=== PATIENT | female | born 1960 | race Caucasian/White ===

== ENCOUNTER 2020-04-18 03:26 | Outpatient (CLI) | payer OTHER, MEDICAID, SELFPAY ==
[2020-04-18 12:11] LABS: Anion Gap 11.4 mmol/L (3-11); BUN 23 mg/dL (7-18); CO2 26.6 mmol/L (21.0-32.0); CREATININE 0.9 mg/dL (0.55-1.02); Calcium 9.7 mg/dL (8.5-10.1); Calculated LDL 105 mg/dL (<100); Chloride 106 mmol/L (98-107); Cholesterol 181 mg/dL (<200); Glucose 109 mg/dL (74-106); HDL Cholesterol 55 mg/dL (40-60); Potassium 4.4 mmol/L (3.5-5.1); Sodium 144 mmol/L (136-145); Triglyceride 108 mg/dL (<150)
== END 2020-04-18 03:27 | disposition home or self-care (01) ==
LOC: LBO 03:26
PROVIDERS: PCP Nurse Practitioner Adult Health; Visit Provider Family Medicine
DX: E11.9 Type 2 diabetes mellitus without complications (principal)
CPT/HCPCS: 36415; 80048; 80061

== ENCOUNTER 2020-04-26 16:02 | Emergency (ER) | payer OTHER, MEDICAID, SELFPAY ==
[2020-04-26 16:06] VITALS: BP 155/86; PULSE 85; RESP 18; TEMP 36.8; O2SAT 96
--- NOTE | 2020-04-26 16:15 | DI.CT_ITS ---
EXAM: CT ABDOMEN PELVIS W CLINICAL HISTORY: RLQ pain, guarding, episode of vaginal bleeding 2 TECHNIQUE: Imaging Protocol: Axial computed tomography images with coronal and sagittal reformatted images were created and reviewed CONTRAST MATERIAL: Intravenous: Omnipaque 350 Contrast volume:100 mL Oral: No COMPARISON: No exams were available for comparison FINDINGS: ABDOMEN: Lung Bases: There are few subpleural nodules less than 5 mm in size. Liver: Normal density. No measurable mass. Portal, Superior Mesenteric, and Splenic Veins: Unremarkable. Gallbladder and Biliary Tract: No radiodense calculus or dilation. Pancreas: Normal density, no abnormal calcifications or inflammatory process. Spleen: Normal. Adrenals: No masses seen. Kidneys: Normal size, contour and axis. No radiodense stones or obstructive uropathy. No masses seen. Abdominal Aorta: Abdominal portion non-dilated. Mild atherosclerosis. Bowel: No obstruction or bowel wall thickening. Appendix is unremarkable. Peritoneal Cavity: No ascites, collection or mesenteric inflammatory response. No free air. Lymph Nodes: Within normal limits. Bones: Within normal limits for the patient's age. Prior lumbar spine surgery. Soft Tissues: Unremarkable. PELVIS: Bladder: Symmetric distention, no gross wall thickening. Reproductive Organs: Unremarkable as visualized. Lymph Nodes: Within normal limits. Bones: Within normal limits for the patient's age. IMPRESSION: 1. No acute abdominal pelvic process. 2. Tiny subpleural nodules in the lungs. For low risk patient, no routine follow-up is recommended. F or high risk patients, (history of smoking or other known risk fractures) optional CT scan of the ada st at 12 months should be considered. RADIATION DOSE DELIVERED: 935.64mGy.cm Total DLP DATA REPOSITORY: All CT scans at this facility are submitted to the National Radiology Data Registry (NRDR) Dose Index Registry (DIR) with the [employer] (ACR). RADIATION OPTIMIZATION: All CT scans at this facility use at least one of these dose optimization te chniques: automated exposure control; mA and/or kV adjustment per patient size (includes targeted exa ms where dose is matched to clinical indication); or iterative reconstruction.
[2020-04-26 16:37] LABS: Abs Immature Grans 0.06 10^3/uL (0.0-0.06); Absolute Basophil Count 0.07 10^3/uL (0.0-0.2); Absolute Eosinophil Count 0.21 10^3/uL (0.0-0.7); Absolute Lymphocyte Count 4.06 10^3/uL (1.2-3.4); Absolute Monocyte Count 0.62 10^3/uL (0.1-0.8); Absolute Neutrophil Count 5.22 10^3/uL (1.2-6.7); Basophils % 0.7; Eosinophils % 2.1; HCT 37.8 % (36.0-46.0); HGB 12.1 g/dL (11.2-15.7); Immature Grans % 0.6; Lymphocytes % 39.6; MCV 84.4 fL (80-95); MPV 9.6 fL (8.0-11.0); Monocytes % 6.1; Neutrophils % 50.9; Nucleated RBC 0 %; Platelet Count 310 10^3/uL (130-400); RBC 4.48 10^6/uL (3.93-5.22); RDW 14.7 % (11.7-14.6); RDW-SD 45.1 fL; WBC 10.24 10^3/uL (4.4-10.8)
--- NOTE | 2020-04-26 16:42 | ED.GENADUL_ITS ---
Discharge Plan Disposition Patient Disposition: HOME Condition: Good Discharge Details Clinical Impression: Abdominal pain Primary Care Provider: Kiki Oneil ED Provider: Kenzie Bustos Home Meds and New Rx's Prescriptions: Continued simvastatin 20 mg tablet 20 mg PO DAILY RF: 0 metformin 500 mg tablet 500 mg PO DAILY RF: 0 hydrocodone-acetaminophen 10-325 mg tablet 1 tab PO Q4H PRNRF: 0 No Action aspirin 325 mg tablet 325 mg PO DAILY RF: 0 topiramate 25 mg tablet 25 mg PO BID RF: 0 omeprazole 40 mg capsule,delayed release(DR/EC) 40 mg PO DAILY RF: 0 amitriptyline 50 mg tablet 50 mg PO QHS RF: 0 Discharge Instructions Instructions: Abdominal Pain (ED) Additional Instructions: Please follow-up with your primary care physician on Wednesday Follow-up for the pelvic ultrasound I have ordered to evaluate your right ovary You may take 650 mg of Tylenol every 4 hours in addition to your hydrocodone, ta ke 325 mg of Tylenol every 4 hours for the next several days Return earlier if fever, chills, worsening or persistent pain, nausea, vomiting Blood pressure recheck by primary care physician You have several pulmonary nodules on your CAT scan, please follow-up with your doctor regarding these findings Discharge Data Discharge Date/Time-TO BE ENTERED AT DEPARTURE: 04/26/20 19:45 Medical Decision Making <BOOM Willis - Last Filed: 04/26/20 19:00> Patient is alert and oriented the, lower abdominal pain only, no chest pain, no shortness of breath, vitals stable aside from mild hypertension CT does not show acute pathology, patient does have mention of pulmonary nodules which she will follow up with . I did order ultrasound of her ovaries to exclude additional pathology Urinalysis was reviewed from [facility] with does not show pathology She been calm and comfortable throughout her evaluation She will need close outpatient follow-up with her primary care doctor No evidence of obvious mass or diverticulitis on CAT scan per radiology interpretation Return precautions discussed and patient says understanding, diagnostic labs reviewed in detail strict pathology Differential Diagnosis Differential Diagnosis: Appendicitis, ovarian torsion, ovarian mass, diverticulitis Medical Records Medical records reviewed: Yes I reviewed the patient's medical records. Lab Data Lab results reviewed: Yes I reviewed the patient's lab results. <Homar Marvin MD - Last Filed: 05/17/20 22:58> Patient seen, examined, and discussed with BOOM Bustos. I agree with treatment plan as discussed/documented. HPI <BOOM Willis - Last Filed: 04/26/20 19:00> This 60-year-old female with history of fibromyalgia, hyperlipidemia, diabetes, knee pain, sad-wllpagd-vfmrlzbiu diabetes presents with right lower quadrant pain for the past 8 weeks. She denies any fever or chills. She denies any chest pain or shortness of breath. She denies any diarrhea. She denies any nausea or vomiting. She denies history of similar pain in the past. She denies known exacerbating or alleviating factors. She states her pain is exacerbated with palpation predominantly. She was having intercourse approximately a week and half ago and was unusual because she is status post hysterectomy years ago. She was seen at urgent care just prior to arrival here and had a urine specimen. She was found to the imaging. Does report her ovaries were preserved. She denies any additional complaints at this time. General Date/Time Provider Initiated Documentation: 04/26/20 16:05 . Related Data Home Medications Medication Instructions Recorded Confirmed hydrocodone 10 mg-acetaminophen 1 tab PO Q4H PRN 04/26/20 04/26/20 325 mg tablet metformin 500 mg tablet 500 mg PO DAILY 04/26/20 04/26/20 simvastatin 20 mg tablet 20 mg PO DAILY 04/26/20 04/26/20 amitriptyline 50 mg tablet 50 mg PO QHS 05/01/20 05/01/20 aspirin 325 mg tablet 325 mg PO DAILY 05/01/20 05/01/20 omeprazole 40 mg capsule,delayed 40 mg PO DAILY cap 05/01/20 05/01/20 release topiramate 25 mg tablet 25 mg PO BID 05/01/20 05/01/20 Allergies Allergy/AdvReac Type Severity Reaction Status Date / Time Opioids - Morphine Analogues AdvReac Intermediate nausea Verified 05/01/20 15:08 General Stated Complaint: Abd Prob KATHRINE: 3 <Homar Marvin MD - Last Filed: 05/17/20 22:58> This 60-year-old female with history of fibromyalgia, hyperlipidemia, diabetes, knee pain, oee-njkgnbx-txumfjzdp diabetes presents with right lower quadrant pain for the past 8 weeks. She denies any fever or chills. She denies any chest pain or shortness of breath. She denies any diarrhea. She denies any nausea or vomiting. She denies history of similar pain in the past. She denies known exacerbating or alleviating factors. She states her pain is exacerbated with palpation predominantly. She was having intercourse approximately a week and half ago and was unusual because she is status post hysterectomy years ago. She was seen at urgent care just prior to arrival here and had a urine specimen. She was found to the imaging. Does report her ovaries were preserved. She denies any additional complaints at this time. Review of Systems <BOOM Willis - Last Filed: 04/26/20 19:00> Narrative: Review of systems negative x7 aside from where indicated in HPI, no vomiting, diarrhea, urinary symptoms, persistent vaginal discharge PFSH <BOOM Willis - Last Filed: 04/26/20 19:00> Medical History (Updated 05/17/20 @ 08:24 by Halle Abreu) Body mass index (BMI) of 30.0 to 30.9 in adult Cannabis dependence, daily use Chronic pain Spine & RSD RUE; long-term hydrocodone-apap since 2016; s/p multiple lumbar spine surgeries; +DIsability Degeneration of intervertebral disc of lumbosacral region Depressive disorder Diabetes mellitus type 2, controlled Dx'ed ~2019; Metformin Fibromyalgia GERD (gastroesophageal reflux disease) Omeprazole; EGD many years ago; never used H2 krystina History of nicotine use 30 pack years; quit 2001 History of TIAs Hyperlipidemia PVD s/p endarderectomy; on statin Knee pain s/p meniscal surgery ([place]) Leg pain Low blood pressure Lumbar spinal stenosis Migraine RX Topamax; breakthrough is rest & dark room (couple times per year) Prolapsed cervical intervertebral disc Pulmonary nodules CT 04/2020: Tiny subpleural nodules in the lungs. For low risk patient, no routine follow-up is recommended. For high risk patients, (history of smoking or other known risk fractures) optional CT scan of the chest at 12 months should be considered. Reflex sympathetic dystrophy of the arm RSD RUE--on disability Right lower quadrant abdominal pain Surgical History (Updated 05/07/20 @ 13:15 by Kiki Oneil NP) H/O lumbosacral spine surgery x2 History of hysterectomy for menorrhagia History of right cataract surgery History of right-sided carotid endarterectomy s/p x2 TIAs Hx of elbow surgery chronic tennis elbow Hx of right knee surgery meniscal repair S/P carpal tunnel release R Family History (Updated 05/07/20 @ 13:18 by Kiki Oneil NP) Father , 76yo lung cancer Cancer Lung Heart disease Hypertension Sister , 44yo lung cancer Cancer all organs Mother , 84yo dementia Dementia Social History Smoking/Tobacco Use Status: Former Tobacco Use Quit Date: 02/22/01 Tobacco: How many years used: 30 Smoking risk assessment performed?: Yes Alcohol Intake: never Substance use type: does not use Adopted: No Caregiver/Support person: No Foster care: No Do you need help understanding health information?: Never Sexually active: Yes Do you think of yourself as: straight/heterosexual Current gender identity: female What is your relationship status?: Panel score (0-1 are the most socially isolated patients): 0 Do you feel safe at home: Yes Do you feel safe in your relationship?: Yes Exam <BOOM Willis - Last Filed: 04/26/20 19:00> Const General: cooperative and comfortable Chest Chest: normal inspection of the chest Resp Effort & Inspection: normal respiratory effort Auscultation: clear to auscultation bilaterally Cardio Rate: regular rate Rhythm: regular rhythm GI Inspection: normal to inspection Palpation: nontender Back/Spine/Pelvis Back: No CVA tenderness Neuro General: patient alert and patient oriented x3 Course <BOOM Willis Last Filed: 04/26/20 19:00> Vital Signs Vital signs: Vital Signs Temperature 36.8 C 04/26/20 16:06 Pulse 85 04/26/20 16:06 Respiratory Rate 18 04/26/20 16:06 Blood Pressure 155/86 H 04/26/20 16:06 Pulse Oximetry 96 04/26/20 16:06 Temperature 36.8 C 04/26/20 16:06 Temperature Source Skin 04/26/20 16:06 Pulse 85 04/26/20 16:06 Respiratory Rate 18 04/26/20 16:06 Respiratory Effort Non-Labored 04/26/20 16:08 Blood Pressure 155/86 H 04/26/20 16:06 Blood Pressure Position Sitting 04/26/20 16:06 Pulse Oximetry 96 04/26/20 16:06 Oxygen Delivery Method Room Air 04/26/20 16:06 Oxygen Flow Rate 0 04/26/20 16:06 Pain Level 6 04/26/20 16:31 Lab/Test Results Lab/Test Results: Laboratory Tests Range/Units 04/26/20 16:05 WBC (4.4-10.8) 10^3/uL 10.24 RBC (3.93-5.22) 10^6/uL 4.48 Hgb (11.2-15.7) g/dL 12.1 Hct (36.0-46.0) % 37.8 MCV (80-95) fL 84.4 MCH (27.0-33.0) pg 27.0 MCHC (32.0-36.0) % 32.0 RDW (11.7-14.6) % 14.7 H Plt Count (130-400) 10^3/uL 310 MPV (8.0-11.0) fL 9.6 Immature Gran % 0.6 Neutrophils % 50.9 Lymphocytes % 39.6 Monocytes % 6.1 Eosinophils % 2.1 Basophils % 0.7 Nucleated RBC % % 0 Absolute Neutrophils (1.2-6.7) 10^3/uL 5.22 Absolute Lymphocytes (1.2-3.4) 10^3/uL 4.06 H Absolute Monocytes (0.1-0.8) 10^3/uL 0.62 Absolute Eosinophils (0.0-0.7) 10^3/uL 0.21 Absolute Basophils (0.0-0.2) 10^3/uL 0.07
[2020-04-26] MEDS: Normal Saline Flush 10 ML SYR IVP (16:43)
[2020-04-26] MEDS: fentaNYL 100 MCG/2 ML VIAL 50 MCG IVP (16:43)
[2020-04-26 16:45] LABS: ALT 51 U/L (14-59); AST 18 U/L (15-37); Alkaline Phosphatase 114 U/L (46-116); Anion Gap 10.5 mmol/L (3-11); BUN 13 mg/dL (7-18); Bilirubin, Total 0.3 mg/dL (0.2-1.0); CO2 24.5 mmol/L (21.0-32.0); CREATININE 0.9 mg/dL (0.55-1.02); Calcium 9.4 mg/dL (8.5-10.1); Chloride 107 mmol/L (98-107); Glucose 112 mg/dL (74-106); Lipase 71 U/L (73-393); Potassium 3.5 mmol/L (3.5-5.1); Sodium 142 mmol/L (136-145); Total Protein 7.7 g/dL (6.4-8.2)
[2020-04-26] MEDS: Omnipaque 350 MG/ML 50 ML BTL IJ ×2 (17:49→17:50)
[2020-04-26] MEDS: Normal Saline - Diluent 50 ML VIAL IV (17:49)
--- NOTE | 2020-04-26 18:23 | DI.VRAD_ITS ---
PROCEDURE INFORMATION: Exam: CT Abdomen And Pelvis With Contrast Exam date and time: 04/26/2020 4:19 PM Age: 60 years old Clinical indication: Abdominal pain; Localized; Right lower quadrant (rlq); Prior surgery; Patient HX: Rlq pain, guarding, episode of vaginal bleeding 2; Additional info: Weeks ago, S/P hyst TECHNIQUE: Imaging protocol: Computed tomography of the abdomen and pelvis with contrast. Total images: 1222 COMPARISON: No relevant prior studies available. FINDINGS: Lungs: Lung bases are unremarkable. Pleural spaces: There are few subpleural nodules in the visualized lower lungs measuring no greater than 3 mm in size. No basilar pleural effusion or pneumothorax. Liver: Homogeneously enhances without mass. Gallbladder and bile ducts: No calcified stones, wall thickening or biliary dilatation. Pancreas: No mass or peripancreatic edema. Spleen: Homogeneously enhances. No splenomegaly. Adrenal glands: No adrenal nodule. Kidneys and ureters: There are bilateral extrarenal pelves. There is no stone in either ureter. Kidneys homogeneously enhance. No perinephric stranding. Stomach and bowel: Stomach is grossly unremarkable. No small or large bowel dilatation. No definite bowel wall thickening. Appendix: No evidence of appendicitis. Intraperitoneal space: There is a clip anteriorly within the right mid abdomen. No pelvic mass. No free fluid in the pelvis. Vasculature: There is atherosclerotic change without aortic aneurysm. Multiple phleboliths within the pelvis. Lymph nodes: No significant adenopathy. Urinary bladder: No definite bladder wall thickening. Reproductive: Status post hysterectomy. Bones/joints: There have been a prior laminectomies and posterior fusions with disc spacers from the L3 to S1 levels. Soft tissues: Extra-abdominal soft tissues are unremarkable. IMPRESSION: 1. No acute findings. No evidence of appendicitis. 2. Tiny basilar lung nodules. For patients at low risk (minimal or absent history of smoking and of other known risk factors), no routine follow-up is indicated. For patients at high risk (history of smoking or of other known risk factors), consider optional CT Chest at 12 months. (Reference: Selvin) REFERENCES: Selvin Sutton et al. Guidelines for Management of Incidental Pulmonary Nodules Detected on CT Images: From the Fleischner Society 2017. Radiology. 2017;284(1):228-243. Dictated and Authenticated by: Kenrick Vergara MD. Ordering:FRANKY Espino MD
[2020-04-26 20:00] LABS: Abs Immature Grans 0.03 10^3/uL (0.0-0.06); Absolute Basophil Count 0.07 10^3/uL (0.0-0.2); Absolute Eosinophil Count 0.16 10^3/uL (0.0-0.7); Absolute Lymphocyte Count 3.54 10^3/uL (1.2-3.4); Absolute Monocyte Count 0.52 10^3/uL (0.1-0.8); Basophils % 0.8; Eosinophils % 1.8; HCT 37.3 % (36.0-46.0); HGB 11.6 g/dL (11.2-15.7); Immature Grans % 0.3; Lymphocytes % 39.7; MCH 26.4 pg (27.0-33.0); MCHC 31.1 % (32.0-36.0); MCV 84.8 fL (80-95); MPV 10.1 fL (8.0-11.0); Monocytes % 5.8; Neutrophils % 51.6; Nucleated RBC 0 %; Platelet Count 317 10^3/uL (130-400); RDW 14.6 % (11.7-14.6); RDW-SD 45.4 fL; WBC 8.92 10^3/uL (4.4-10.8)
== END 2020-04-26 19:45 | disposition home or self-care (01) ==
PROVIDERS: Nurse Practitioner Family; Emergency Provider Physician Assistant; PCP Nurse Practitioner Adult Health
DX: R10.31 Right lower quadrant pain (principal)
CPT/HCPCS: 36415; 80053; 83690; 96374; 99285; 74177; 85025; 99284; J3010; Q9967

== ENCOUNTER 2020-11-07 14:35 | Outpatient (CLI) | payer OTHER, MEDICAID, SELFPAY ==
--- NOTE | 2020-11-07 14:30 | RT.EKG_ITS ---
APPROVED REPORT Exam: Resting ECG Reason for Exam: Chest discomfort Patient Location: O HR:91 bpm ECG Measurements Heart Rate 91 AXIS SC 144 P 58 QRSd 92 QRS 66 QT 360 T -47 QTc 444 Conclusion Sinus rhythm...normal P axis, V-rate 60- 99 Ventricular bigeminy...bigeminy string>4 w/ V complexes Probable left atrial enlargement...P >50mS, <-0.10mV V1
== END 2020-11-07 14:36 | disposition home or self-care (01) ==
LOC: DI.CM 14:35
PROVIDERS: PCP Nurse Practitioner Family; Visit Provider Physician Assistant
DX: R07.89 Other chest pain (principal)
CPT/HCPCS: 93010

== ENCOUNTER 2020-11-07 15:23 | Emergency (ER) | payer OTHER, MEDICAID, SELFPAY ==
[2020-11-07] VITALS (42 sets, daily range): BP systolic 130–163; BP diastolic 67–93; PULSE 65–100; RESP 12–23; TEMP 36.5; O2SAT 90–99
--- NOTE | 2020-11-07 15:15 | RT.EKG_ITS ---
APPROVED REPORT Exam: Resting ECG Reason for Exam: chest pain Patient Location: E HR:91 bpm ECG Measurements Heart Rate 91 AXIS SC 136 P 54 QRSd 89 QRS 73 QT 368 T -16 QTc 454 Conclusion Sinus rhythm...normal P axis, V-rate 60- 99 Multiple ventricular premature complexes...V complexes w/ short R-R intervls Borderline T abnormalities, diffuse leads...T flat/neg
[2020-11-07 15:43] LABS: Abs Immature Grans 0.06 10^3/uL (0.0-0.06); Absolute Basophil Count 0.08 10^3/uL (0.0-0.2); Absolute Eosinophil Count 0.25 10^3/uL (0.0-0.7); Absolute Lymphocyte Count 3.76 10^3/uL (1.2-3.4); Absolute Monocyte Count 0.67 10^3/uL (0.1-0.8); Absolute Neutrophil Count 5.36 10^3/uL (1.2-6.7); Basophils % 0.8; Eosinophils % 2.5; HCT 38.2 % (36.0-46.0); HGB 12.2 g/dL (11.2-15.7); Immature Grans % 0.6; Lymphocytes % 36.9; MCH 26.9 pg (27.0-33.0); MCHC 31.9 % (32.0-36.0); MCV 84.3 fL (80-95); Monocytes % 6.6; Neutrophils % 52.6; Nucleated RBC 0 %; Platelet Count 281 10^3/uL (130-400); RBC 4.53 10^6/uL (3.93-5.22); RDW 14.9 % (11.7-14.6); RDW-SD 45.7 fL; WBC 10.18 10^3/uL (4.4-10.8)
--- NOTE | 2020-11-07 15:45 | DI.CT_ITS ---
Exam(s) CT THORAX CTA EXAM: CT THORAX CTA CLINICAL HISTORY: chest pain radiating to the back. TECHNIQUE: Imaging Protocol: Axial CT angiography was performed with multi-slice acquisition and mu lti-planar and/or 3D reconstructions. CONTRAST MATERIAL: Intravenous: Omnipaque 350 Contrast volume:100 mL COMPARISON: CT CT ABDOMEN PELVIS W from 04/26/2020 FINDINGS: Pulmonary Arteries: No evidence of filling defect to suggest pulmonary emboli. There is prominence of the main pulmonary trunk which may reflect pulmonary hypertension. Tracheobronchial tree: Patent where visualized. Mediastinum and Nuvia: No dominant adenopathy or fluid collection. Pulmonary parenchyma: No consolidation or dominant measurable mass. Pulmonary emphysema and bronchiec tasis is noted. There is a 4 mm nodule in the right upper lobe. There is a 4 mm nodule in the later al aspect of the left lower lobe. These are stable. Pleura: No effusion or pneumothorax. Heart: The heart is not dilated. No coronary artery calcifications are seen. No pericardial effusion. Aorta: Thoracic aorta non-dilated. Atherosclerosis. No evidence of dissection. Upper abdomen: Unremarkable. Bones: Within normal limits. Soft tissues: Unremarkable. Thyroid gland: Unremarkable. IMPRESSION: 1. No evidence of pulmonary embolism, thoracic aortic dissection or aneurysm. 2. Stable pulmonary nodules. For patients at low risk, no routine follow-up is recommended. For pat ients at high risk (history of smoking or other known risk factors), consider optional CT scan of the chest at 12 months. (Reference: Selvin) RADIATION DOSE DELIVERED: 563.33mGy.cm Total DLP DATA REPOSITORY: All CT scans at this facility are submitted to the National Radiology Data Registry (NRDR) Dose Index Registry (DIR) with the [employer] (ACR). RADIATION OPTIMIZATION: All CT scans at this facility use at least one of these dose optimization te chniques: automated exposure control; mA and/or kV adjustment per patient size (includes targeted exa ms where dose is matched to clinical indication); or iterative reconstruction.
--- NOTE | 2020-11-07 15:45 | W.ED.GENAD ---
Discharge Plan Disposition Patient Disposition: HOME Condition: Stable Discharge Details Clinical Impression: Chest pain Primary Care Provider: Maximus Leiva ED Provider: Eduardo Sims Home Meds and New Rx's Prescriptions: Continued simvastatin 20 mg tablet 20 mg PO DAILY RF: 0 Hold Instructions: Home Medication placed on hold at Doctor's office metformin 500 mg tablet 500 mg PO DAILY RF: 0 aspirin 325 mg tablet 325 mg PO DAILY RF: 0 omeprazole 40 mg capsule,delayed release(DR/EC) 40 mg PO DAILY RF: 0 amitriptyline 50 mg tablet 50 mg PO QHS Qty: 90 RF: 4 Discharge Instructions Instructions: Chest Pain (ED) Additional Instructions: your blood work and cat scan do not show any emergent findings at this time follow up with your primary care provider within a week. They should also know that you have pulmonary nodules on your cat scan and will need follow up outpatient imaging if you feel more ill, have worsening pain or difficulty breathing return to the emergency department Medical Decision Making 60 yo female who has a hx of hld, migraine, gerd, fibromyalgia, former smoker, who comes in with chief complaint of chest pain. She states it started yesterday when she was taking out her trash and felt a sharp pain in the chest. She has had continued anterior chest pain since that radiates to the back and also states it hurts to take a deep breath in. Denies fevers, cough, n/v, abdomen pain. States moving her arms hurts the pain. She is in no distress on exam speaking clearly. She has clear lungs, no rashes of the chest wall, soft nontender abdomen, has pain with palpation to the chest wall on exam. Will obtain troponin to evaluate for nstemi, heart score is 3. No hypoxia, tachycardia or evidence of dvt on exam so doubt pe. Given her pain radiates to the back will obtain CTA to evaluate for dissection labs unremarkable and cta shows no acute significant findings, has pulmonary nodules that I informed her of and that she needs to inform her pcp of when she follows up with them. she is stable and no pain now, will obtain delta troponin pt now resting in bed asymptomatic, delta troponin negative. Given heart score of 3 feel she is stable for d/c and advised to f/u with pcp, return precautions given Differential Diagnosis Differential Diagnosis: dissection, nstemi, chest wall pain Imaging Data Radiologic Study: Attestation: I personally reviewed and interpreted this imaging study as follows: Imaging: CT Scan Radiologist's impression: IMPRESSION: 1. No pulmonary embolism identified. 2. Mildly dilated pulmonary trunk could be due to pulmonary hypertension. 3. Changes of emphysema 4. 3 bilateral indeterminate pulmonary nodules, largest measuring 5 mm. For patients at low risk (minimal or absent history of smoking and of other known risk factors), no routine follow-up is indicated. For patients at high risk (history of smoking or of other known risk factors), consider optional CT Chest at 12 months. (Reference: Selvin) Lab Data Lab results reviewed: Yes I reviewed the patient's lab results. ECG Data Attestation: I personally reviewed and interpreted this ECG (s) as follows: Prior ECG tracings: available for review Interpretation: sinus rhythm, rate of 91, no acute st t wave ischemic findings HPI General Mode of arrival: ambulatory. Date/Time Provider Initiated Documentation: 11/07/20 15:24. Limitations to Documentation: no limitations. Information obtained by: patient. History of Present Illness 60 year old F presents to the emergency department with the chief complaint of chest pain, described as moderate, with intensity rated at 5. Quality is described as aching, and is localized to the chest. Patient reports radiation to back. Patient started experiencing this day(s) (1) and it has been constant. No relieving factors improve symptom(s), No exacerbating factors reported . Patient notes denies fever/chills. Patient did receive the following treatments prior to arrival, none Related Data Home Medications Medication Instructions Recorded Confirmed metformin 500 mg tablet 500 mg PO DAILY 04/26/20 11/07/20 simvastatin 20 mg tablet 20 mg PO DAILY 04/26/20 11/07/20 aspirin 325 mg tablet 325 mg PO DAILY 05/01/20 11/07/20 omeprazole 40 mg capsule,delayed 40 mg PO DAILY cap 05/01/20 11/07/20 release amitriptyline 50 mg tablet 50 mg PO QHS #90 tab 11/04/20 11/07/20 Previous Rx's Medication Instructions Recorded amitriptyline 50 mg tablet 50 mg PO QHS #90 tab 11/04/20 Allergies Allergy/AdvReac Type Severity Reaction Status Date / Time oxycodone [From Xtampza ER] Allergy Unknown Nausea Verified 11/07/20 15:33 Opioids - Morphine Analogues AdvReac Intermediate nausea Verified 11/07/20 15:33 General Stated Complaint: Chest Pain KATHRINE: 2 Review of Systems All systems reviewed & are unremarkable except as noted in HPI and below Constitutional Constitutional: Denies chills, Denies fever(s) and Denies weakness Cardiovascular Cardiovascular: Denies dyspnea Respiratory Respiratory: Denies cough and Denies dyspnea Gastrointestinal Gastrointestinal: Denies abdominal pain, Denies nausea and Denies vomiting Musculoskeletal Musculoskeletal: Denies joint swelling Neurologic Neurologic: Denies weakness [facility] Medical History (Updated 11/07/20 @ 18:14 by Eduardo Sims MD) Body mass index (BMI) of 30.0 to 30.9 in adult Cannabis dependence daily use Chronic pain Spine & RSD RUE; long-term hydrocodone-apap since 2015; s/p multiple lumbar spine surgeries; +DIsability Degeneration of intervertebral disc of lumbosacral region Depressive disorder Diabetes mellitus type 2, controlled Dx'ed ~2018; Metformin Facet syndrome, lumbar Fibromyalgia GERD (gastroesophageal reflux disease) Omeprazole; EGD many years ago; never used H2 krystina History of nicotine use 30 pack years; quit 2001 History of TIAs Hyperlipidemia PVD s/p endarderectomy; on statin Knee pain s/p meniscal surgery ([place]) Leg pain Low blood pressure Lumbar radiculopathy Lumbar spinal stenosis (~05/27/18) Migraine RX Topamax; breakthrough is rest & dark room (couple times per year) Opioid dependence Clean for 2 months on 09/05/20 Prolapsed cervical intervertebral disc Pulmonary nodules CT 04/2020: Tiny subpleural nodules in the lungs. For low risk patient, no routine follow-up is recommended. For high risk patients, (history of smoking or other known risk fractures) optional CT scan of the chest at 12 months should be considered. Reflex sympathetic dystrophy of the arm RSD RUE--on disability Right lower quadrant abdominal pain Trochanteric bursitis Surgical History (Updated 07/31/20 @ 16:10 by Suha Murphy) H/O discectomy (~2006) H/O laminectomy H/O lumbosacral spine surgery x2 History of hysterectomy (~02/22/95) for menorrhagia History of right cataract surgery History of right-sided carotid endarterectomy (~12/23/16) s/p x2 TIAs Hx of elbow surgery chronic tennis elbow Hx of right knee surgery meniscal repair S/P carpal tunnel release (~02/22/03) R Family History (Updated 07/12/20 @ 11:19 by Allison Miller) Father , 76yo lung cancer Cancer Lung Heart disease Hypertension Sister , 44yo lung cancer Cancer all organs Mother , 84yo dementia Dementia Sister No problems noted. Sister No problems noted. Brother No problems noted. Social History (Updated 07/12/20 @ 11:17 by Allison Miller) Smoking/Tobacco Use Status: Former Tobacco Use tobacco type: cigarettes Quit Date: 02/22/01 Tobacco: How many years used: 30 Second Hand Exposure: Yes Smoking risk assessment performed?: Yes Alcohol Intake: never Drug use: Daily Substance use type: marijuana Adopted: No Caregiver/Support person: No Foster care: No Household members: none Do you need help understanding health information?: Never Pets and animals: Yes Sexually active: Yes Do you think of yourself as: straight/heterosexual Current gender identity: female What is your relationship status?: How often do you talk on the phone with friends or family?: three or more times per week How often do you get together with friends or relatives?: twice per week How often do you attend jewish or restoration services?: decline to answer Do you belong to any clubs or organized social groups?: no Panel score (0-1 are the most socially isolated patients): 1 What type of physical activity do you participate in: walking Duration: 30-45 minutes/day Frequency: 3-4 times per week Paola/Uatsdin: No preference Special paola needs: No Agree to transfusion: No Seatbelt use: always Helmet use: No Drive intox or ride w/intox commercial driver's license driver: No Do you feel safe at home: Yes Do you feel safe in your relationship?: Yes Exam Const General: no acute distress Orientation: alert HENMT Head: normal to inspection Ears: external ears normal General nose exam: external nose normal Mouth: moist mucous membranes Eyes General: appearance normal, both eyes and all related structures Neck Neck: normal visual inspection Resp Effort & Inspection: normal respiratory effort and able to speak in complete sentences Cardio Rate: regular rate GI Palpation: soft, not rigid and nontender Skin General skin exam: no rashes or lesions noted Neuro General: patient alert and patient oriented x3 Extrem General: normal to inspection Psych Mental Status: mental status grossly normal Course Vital Signs Vital signs: Vital Signs Pulse 80 11/07/20 15:27 Respiratory Rate 14 11/07/20 15:27 Blood Pressure 130/73 11/07/20 15:27 Pulse Oximetry 96 11/07/20 15:27 Pulse 80 11/07/20 15:27 Respiratory Rate 14 11/07/20 15:36 Respiratory Effort 11/07/20 15:36 Respiratory Depth Normal 11/07/20 15:36 Respiratory Pattern Normal 11/07/20 15:36 Blood Pressure 130/73 11/07/20 15:27 Pulse Oximetry 96 11/07/20 15:27 Oxygen Delivery Method Room Air 11/07/20 15:27 Oxygen Flow Rate 0 11/07/20 15:27 Pain Level 5 11/07/20 15:36 Lab/Test Results Lab/Test Results: Laboratory Tests Range/Units 11/07/20 15:35 WBC (4.4-10.8) 10^3/uL 10.18 RBC (3.93-5.22) 10^6/uL 4.53 Hgb (11.2-15.7) g/dL 12.2 Hct (36.0-46.0) % 38.2 MCV (80-95) fL 84.3 MCH (27.0-33.0) pg 26.9 L MCHC (32.0-36.0) % 31.9 L RDW (11.7-14.6) % 14.9 H Plt Count (130-400) 10^3/uL 281 MPV (8.0-11.0) fL 10.0 Immature Gran % 0.6 Neutrophils % 52.6 Lymphocytes % 36.9 Monocytes % 6.6 Eosinophils % 2.5 Basophils % 0.8 Nucleated RBC % % 0 Absolute Neutrophils (1.2-6.7) 10^3/uL 5.36 Absolute Lymphocytes (1.2-3.4) 10^3/uL 3.76 H Absolute Monocytes (0.1-0.8) 10^3/uL 0.67 Absolute Eosinophils (0.0-0.7) 10^3/uL 0.25 Absolute Basophils (0.0-0.2) 10^3/uL 0.08
[2020-11-07 15:50] LABS: Magnesium 2.1 mg/dL (1.8-2.4)
[2020-11-07 16:01] LABS: ALT 34 U/L (14-59); AST 17 U/L (15-37); Alkaline Phosphatase 103 U/L (46-116); BUN 13 mg/dL (7-18); Bilirubin, Total 0.3 mg/dL (0.2-1.0); Calcium 9.2 mg/dL (8.5-10.1); Chloride 106 mmol/L (98-107); Estimated GFR 56.56 (mL/min/1.73m2); Glucose 112 mg/dL (74-106); Lipase 79 U/L (73-393); Potassium 3.8 mmol/L (3.5-5.1); Sodium 142 mmol/L (136-145); Total Protein 7.7 g/dL (6.4-8.2)
[2020-11-07 16:03] LABS: Troponin I < 0.05 ng/mL (<0.06)
[2020-11-07] MEDS: Normal Saline Flush 10 ML SYR IVP (16:33)
[2020-11-07] MEDS: Omnipaque 350 MG/ML 100 ML BTL IJ (16:33)
--- NOTE | 2020-11-07 17:11 | DI.VRAD_ITS ---
PROCEDURE INFORMATION: Exam: CTA Chest With Contrast Exam date and time: 11/07/2020 3:52 PM Age: 60 years old Clinical indication: Other: Chest pain radiating to the back TECHNIQUE: Imaging protocol: Computed tomographic angiography of the chest with contrast. 3D rendering (Not supervised by radiologist): MIP and/or 3D reconstructed images were created by the technologist. Contrast material: OMNIPAQUE 350; Contrast volume: 100 ml; Contrast route: INTRAVENOUS (IV); COMPARISON: CT ABDOMEN PELVIS W 04/26/2020 5:42 PM FINDINGS: Pulmonary arteries: Main pulmonary trunk is mildly dilated measuring 3.2 cm in diameter, suspicious for pulmonary hypertension.. No pulmonary emboli. Aorta: Unremarkable. No aortic aneurysm. No aortic dissection. Lungs: Mild changes of emphysema. Mild diffuse bronchiectasis. 4 mm nodule in the right upper lobe anteriorly best seen on axial series 4, image 29. 5 mm subpleural nodule in the left lung base laterally best seen on axial series 4, image 47, unchanged from the CT abdomen and pelvis 04/26/2020. 5 mm subpleural nodule right lung base laterally is also stable, best seen axial series 4, image 42. areas of slight subpleural scarring in both lungs. Pleural spaces: Unremarkable. No pneumothorax. No pleural effusion. Heart: Unremarkable. No cardiomegaly. No pericardial effusion. Lymph nodes: Unremarkable. No enlarged lymph nodes. Bones/joints: The postoperative changes in the visualized lumbar spine with laminectomies and posterior demetri and pedicle screw fixation. Soft tissues: Unremarkable. IMPRESSION: 1. No pulmonary embolism identified. 2. Mildly dilated pulmonary trunk could be due to pulmonary hypertension. 3. Changes of emphysema 4. 3 bilateral indeterminate pulmonary nodules, largest measuring 5 mm. For patients at low risk (minimal or absent history of smoking and of other known risk factors), no routine follow-up is indicated. For patients at high risk (history of smoking or of other known risk factors), consider optional CT Chest at 12 months. (Reference: Selvin) References: Selvin Sutton et al. Guidelines for Management of Incidental Pulmonary Nodules Detected on CT Images: From the Fleischner Society 2017. Radiology. 2017;284(1):228-243. Dictated and Authenticated by: Griselda Elizalde MD. Ordering:DEWAYNE Clark MD
--- NOTE | 2020-11-07 17:55 | NUR.NOTE ---
Pt reports no chest pain at this time, denies needs, resting on stretcher, monitors maintained. Nursing Note:
[2020-11-07 19:03] LABS: Troponin I < 0.05 ng/mL (<0.06)
== END 2020-11-07 19:19 | disposition home or self-care (01) ==
PROVIDERS: Emergency Provider Emergency Medicine; PCP Nurse Practitioner Family
DX: R07.9 Chest pain, unspecified (principal); R07.1 Chest pain on breathing; R91.8 Other nonspecific abnormal finding of lung field
CPT/HCPCS: 36415; 71275; 80053; 83690; 93005; 99285; 83735; 84484; 85025; 93010; 99284; J3490

== ENCOUNTER 2020-11-27 19:40 | Outpatient (REF) | payer OTHER, MEDICAID, SELFPAY ==
[2020-11-29 12:09] LABS: COVID-19 RT-PCR UVMMC Result Negative (Negative)
== END 2020-11-27 19:41 | disposition home or self-care (01) ==
LOC: LBN 19:40
PROVIDERS: PCP Nurse Practitioner Family; Visit Provider Family Medicine
DX: Z20.822 Contact with and (suspected) exposure to COVID-19 (principal)
CPT/HCPCS: U0003

== ENCOUNTER 2020-12-20 01:25 | Outpatient (CLI) | payer OTHER, MEDICAID, SELFPAY ==
[2020-12-20 10:48] LABS: Source Nasal/Nares
[2020-12-20 14:31] LABS: COVID-19 PCR Negative (Negative)
== END 2020-12-20 01:26 | disposition home or self-care (01) ==
LOC: LBO 01:25
PROVIDERS: PCP Nurse Practitioner Family; Visit Provider Ophthalmology
DX: Z20.822 Contact with and (suspected) exposure to COVID-19 (principal); Z01.818 Encounter for other preprocedural examination
CPT/HCPCS: 87635

== ENCOUNTER 2020-12-23 08:48 | Day surgery (SDC) | payer OTHER, MEDICAID, SELFPAY ==
[2020-12-23 09:06] VITALS: BP 137/92; PULSE 89; RESP 18; TEMP 36.5; O2SAT 97
[2020-12-23] MEDS: Tropicam./Phenyleph. (1/2.5%) 5 ML BTL OS ×3 (09:19→09:29)
--- NOTE | 2020-12-23 09:43 | W.ANESPRE ---
General Info Date of Service Date Performed: 12/23/20 Height: 5 ft 5 in Weight: 84.8 kg Body Mass Index (BMI): 31.1 Surgical Procedure: Operation Date: 12/23/20 11:40 Proposed Procedures Side Surgeon p Cataract Extraction with IOL Implant Left Devaughn Graham MD Meds Allergies and Home Medications Allergies Allergy/AdvReac Type Severity Reaction Status Date / Time Opioids - Morphine Analogues AdvReac Intermediate nausea Verified 12/23/20 09:03 oxycodone [From Xtampza ER] AdvReac Unknown Nausea, Verified 12/23/20 09:03 headache Home Medication Medication Instructions Recorded metformin 500 mg tablet 500 mg PO DAILY 04/26/20 aspirin 325 mg tablet 325 mg PO DAILY 05/01/20 omeprazole 40 mg capsule,delayed 40 mg PO DAILY cap 05/01/20 release amitriptyline 50 mg tablet 50 mg PO QHS #90 tab 11/04/20 Current Visit Medications: Current Medications Generic Name Dose Route Start Last Admin Trade Name Freq PRN Reason Stop Dose Admin Acetaminophen 1,000 mg 12/23/20 06:00 Acetaminophen 500 Mg Tab PO Q4H PRN PRN Miscellaneous Medication 0 ml 12/23/20 06:00 Prednisolone 1%, Moxifloxacin 0.5%, Nepafenac 0.1% 5ml Btl OS DIRECTED [facility] Miscellaneous Medication 0 ml 12/23/20 06:00 12/23/20 09:29 Tropicam./Phenyleph. (1/2.5%) 5 Ml Btl OS 1 drp DIRECTED JADE Administration Tetracaine HCl 0 ml 12/23/20 06:00 Tetracaine 0.5% 4 Ml Btl OS DIRECTED [facility] PFSH Active Problems Active Problems: Problem Status Onset Code Tinea pedis B35.3 Muscle cramp R25.2 Chest pain R07.9 Nuclear sclerotic cataract of left eye H25.12 Posterior subcapsular age-related cataract of left eye H25.042 Cannabis dependence F12.20 Opioid dependence F11.20 Facet syndrome, lumbar M47.816 Lumbar radiculopathy M54.16 Trochanteric bursitis M70.60 History of nicotine use Z87.891 History of TIAs Z86.73 Chronic pain G89.29 Pulmonary nodules R91.8 Body mass index (BMI) of 30.0 to 30.9 in adult Z68.30 Migraine G43.909 GERD (gastroesophageal reflux disease) K21.9 Fibromyalgia M79.7 Depressive disorder F32.9 Lumbar spinal stenosis ~05/27/18 M48.061 Degeneration of intervertebral disc of lumbosacral region M51.37 Hyperlipidemia E78.5 Diabetes mellitus type 2, controlled E11.9 Reflex sympathetic dystrophy of the arm G90.519 Medical History Medical History Body mass index (BMI) of 30.0 to 30.9 in adult Cannabis dependence daily use Chronic pain Spine & RSD RUE; long-term hydrocodone-apap since 2015; s/p multiple lumbar spine surgeries; +DIsability Degeneration of intervertebral disc of lumbosacral region Depressive disorder Diabetes mellitus type 2, controlled Dx'ed ~2019; Metformin Facet syndrome, lumbar Fibromyalgia GERD (gastroesophageal reflux disease) Omeprazole; EGD many years ago; never used H2 krystina History of nicotine use 30 pack years; quit 2001 History of TIAs 2017 Hyperlipidemia PVD s/p endarderectomy; on statin Knee pain s/p meniscal surgery ([place]) Leg pain Low blood pressure Lumbar radiculopathy Lumbar spinal stenosis (~05/27/18) Migraine RX Topamax; breakthrough is rest & dark room (couple times per year) Opioid dependence Clean for 2 months on 09/05/20 Prolapsed cervical intervertebral disc Pulmonary nodules CT 04/2020: Tiny subpleural nodules in the lungs. For low risk patient, no routine follow-up is recommended. For high risk patients, (history of smoking or other known risk fractures) optional CT scan of the chest at 12 months should be considered. Reflex sympathetic dystrophy of the arm RSD RUE--on disability Right lower quadrant abdominal pain Trochanteric bursitis Surgical History Surgical History (Updated 12/20/20 @ 10:48 by Jarred Palumbo) H/O discectomy (~2006) H/O laminectomy H/O lumbosacral spine surgery x2 History of hysterectomy (~02/22/95) for menorrhagia History of right cataract surgery History of right-sided carotid endarterectomy (~12/23/16) s/p x2 TIAs F/U with PCP at [facility] Hx of elbow surgery chronic tennis elbow Hx of right knee surgery meniscal repair S/P carpal tunnel release (~02/22/03) R Tobacco Smoking/Tobacco Use Status: Former Tobacco Use Tobacco: How many years used: 30 Passive smoking exposure: Yes Second hand exposure: Yes Alcohol Alcohol Intake: never Substance Use Substance use: Daily Substance use type: marijuana Vital Signs and Lab Results Vital Signs Most Recent Vital Signs in EMR: Most Recent Vital Signs Temp Pulse Resp BP Pulse Ox 36.5 C 89 18 137/92 H 97 12/23/20 09:06 12/23/20 09:06 12/23/20 09:06 12/23/20 09:06 12/23/20 09:06 Point of Care Results Point of Care Results: Finger Stick Blood Glucose 136 12/23/20 09:01 Lab Results Blood Type / Crossmatch: No Data to Display Complete Blood Count: No Data to Display Complete Metabolic Panel: No Data to Display Liver Function Panel: No Data to Display Coagulation Panel: No Data to Display Cardiac Panel: No Data to Display Arterial Blood Gas: No Data to Display Venous Blood Gas: No Data to Display Pancreas Panel: No Data to Display Thyroid Panel: No Data to Display Infectious Disease: Coronavirus (COVID-19)(PCR) Negative (Negative) 12/20/20 08:41 12/20/20 Coronavirus 2019 Source Nasal/Nares 12/20/20 08:41 12/20/20 Blood Cultures: No Data to Display Toxicology Panel: No Data to Display Imaging and Studies Imaging and Studies EKG Summary: Conclusion Sinus rhythm...normal P axis, V-rate 60- 99 Multiple ventricular premature complexes...V complexes w/ short R-R intervls Borderline T abnormalities, diffuse leads...T flat/neg 11/07/20 Anesthesia Assessment and Plan Anesthesia History Personal History: No History of Anesthesia Complications Family History: No Family History of Anesthesia Complications Exercise Tolerance Exercise Tolerance: Other (Walks 3 miles 3 or 4 times per day ) Pertinent Negatives Pertinent Negatives: No Symptoms of GERD (Controlled well), No Major Cardiovascular Symptoms or Complaints and No Major Pulmonary Symptoms or Complaints Cardiac & Pulmonary Exam Cardiac Exam: Normal S1/S2 Heart Sounds Pulmonary Exam: Clear Bilateral Breath Sounds Airway Exam Known Difficult Airway: No Mallampati Class: 3 Mouth Opening: Normal (> 3cm) Thyromental Distance: Greater than 3 cm Neck Range of Motion: Full ROM Neck Circumference: Normal Teeth Condition: Removable Dentures/Plates Upper and Other ASA Classification ASA Score: ASA 2 Emergency Case?: No NPO Status NPO Status: NPO Clears >2 hours, Solids >8 hours Anesthesia Plan Resuscitation Status: Full Code Anesthesia Technique: MAC Anesthesia Airway Planned: Natural Airway Monitors Used: Standard Monitors
[2020-12-23 10:00] VITALS: BMI 31.1
[2020-12-23] MEDS: Tetracaine 0.5% 4 ML BTL OS (10:18)
[2020-12-23] MEDS: Lidocaine 1% Pres-Free 5 ML VIAL (10:19)
[2020-12-23] MEDS: Lidocaine 2% Jelly 6 ML SYR (10:19)
[2020-12-23] MEDS: Duovisc Viscoelastic System EACH 1 EACH (10:20)
[2020-12-23] MEDS: Balanced Salt Soln.-PLUS 500 ML BAG (10:20)
[2020-12-23] MEDS: Povidone-Iodine Ophth 30 ML BTL (10:22)
--- NOTE | 2020-12-23 10:38 | W.PM.DSUDISC ---
Discharge Plan Disposition Patient Disposition: HOME Condition: Good Discharge Details Attending Provider: Devaughn Graham Primary Care Provider: Maximus Leiva Home Meds and New Rx's Prescriptions: No Action metformin 500 mg tablet 500 mg PO DAILY RF: 0 aspirin 325 mg tablet 325 mg PO DAILY RF: 0 omeprazole 40 mg capsule,delayed release(DR/EC) 40 mg PO DAILY RF: 0 amitriptyline 50 mg tablet 50 mg PO QHS Qty: 90 RF: 4 Discharge Instructions Stand Alone Forms: Post-op Topical Cataract, Aiden Valadez (DSU) Discharge Orders Discharge Orders: Discharge Order (Routine); Ordered 12/23/20 Ordered By: Devaughn Graham DS: Diagnosis Discharge Diagnosis (1) Nuclear sclerotic cataract of left eye: Status: Resolved (2) Posterior subcapsular age-related cataract of left eye: Status: Resolved
--- NOTE | 2020-12-23 10:39 | ROE_ITS ---
Date of service: 12/23/20 Time of Service: 10:39 Operative Note Operative Note DATE OF PROCEDURE: 12/23/20 PRE-OP DIAGNOSIS: Nuclear/posterior subcapsular cataract, left eye POST-OP DIAGNOSIS: same PROCEDURE: Cataract extraction using phacoemulsification with intraocular lens implant, left eye SURGEON: Devaughn Graham ANESTHESIA TYPE: Local By Surgeon and MAC Refer to Anesthesia Record PATHOLOGY: none sent COMPLICATIONS: None Patient was transported to: same day Patient's condition: stable Implants: [employer] / [employer] Tecnis [id number] Indications: Progressive decreased vision due to cataract, left eye Procedure Description: CATARACT SURGERY OPERATIVE REPORT PREOPERATIVE DIAGNOSIS: 1. Nuclear/posterior subcapsular cataract, left eye POSTOPERATIVE DIAGNOSIS: Same OPERATION: 1. Cataract extraction using phacoemulsification with posterior chamber intraocular lens implant, left eye. IOL: IOL Electrical Parts Reconditioner/Model: Shir[employer] Shiraz / LEIF Tecnis [id number] IOL Power: + 23.0 diopters IOL Serial Number: [id number] Optic Diameter: 6.0 mm Haptic/Overall Diameter: 13.0 mm PHACO INFO: Erik Horse Collaborativeurion Vision System with OZil and Active Fluidics Cumulative Dispersed Energy (CDE): 3.83 seconds SURGEON: Devaughn Graham MD, BETTYE ANESTHESIA: Monitored A [facility] (MAC), with local sub-tenon's anesthetic infiltration COMPLICATIONS: None SPECIMENS: None INDICATIONS FOR PROCEDURE: The patient is a 60-year-old lady with history of diminished visual acuity in her left eye secondary to the development of nuclear and posterior subcapsular cataract. She has previously undergone cataract surgery in the right eye. The option of cataract surgery in the left eye was offered to the patient and she felt she was symptomatic enough that she wished to proceed. PROCEDURE: The correct surgical eye was identified and marked as the left eye and the pupil was dilated in the preoperative area using mydriatics and cycloplegics. The dilated pupil size was 7.0 mm. Oral sedation was administered in the form of an Imprimis MKO Melt (midazolam 3mg/ketamine 25mg/ondansetron 2mg). The patient was brought to the operating room where cardiopulmonary monitoring was instituted and surgical time-out was performed, confirming the correct operative eye and IOL power. Topical anesthesia was administered and ophthalmic povidone-iodine 5% was instilled into the conjunctival fornices. Lidocaine gel was applied to the cornea and the nichole-ocular area was prepped with Betadine 10% solution and draped in the usual sterile fashion for intraocular surgery, including an aperture drape. A Tegaderm transparent film dressing was cut in half and used to cover the lashes and lid margins. Care was taken to sequester the lashes and lid margins under the Tegaderm dressing. A lid speculum was placed between the lids of the operative eye and the Ashely-Joanie operating microscope was maneuvered into position. Gurpreet scissors were then used to make a conjunctival buttonhole approximately 6mm posterior to the limbus in the inferonasal quadrant. Blunt dissection was carried out to expose bare sclera, and a blunt-tipped sub-tenon?s anesthesia cannula was introduced and passed posteriorly along the globe where non- preserved plain lidocaine was injected into posterior sub-Tenon?s space. A sideport knife was used to make a paracentesis port superiorly/superiortemporally. Intraocular phenylephrine/lidocaine was injected int the anterior chamber.. The anterior chamber was filled with viscoelastic. A 2.4mm keratome knife was used to create a half-thickness groove at the limbus and then to construct a three-plane near-clear corneal tunnel extending 2.0mm into clear cornea at the 3:00 position. A flap was raised on the anterior capsule and capsulorhexis forceps were used to complete a continuous curvilinear capsulorhexis of 5.0 mm. Balanced salt solution was then used to perform cortical cleaving hydrodissection and nuclear hydrodelineation until the lens could be freely rota ty within the capsular bag. The lens nucleus was then disassembled and removed within the capsular bag and iris plane using phacoemulsification. Residual cortical material was removed using the 45-degree angled silicone I/A tip with 0.3mm port. The posterior capsule was carefully polished to remove as much residual lens epithelial cells as safely possible. The capsular bag was then inflated and the anterior chamber deepened with viscoelastic. The lens implant described above was inserted into the capsular bag using the LEIF [place] Injector. A Kuglen hook was used to dial the IOL into position. Residual viscoelastic was then removed first from posterior to the IOL, then from the anterior chamber using the I/A handpiece. The lens implant was noted to center nicely within the capsular bag. The incisions were stromally hydrated, and the anterior chamber was reformed using BSS. Then 0.5cc of moxifloxacin 1.0mg/ml were injected into the capsular bag and anterior chamber. The incis ions were checked with a Weck spear and found to be secure. Several drops of ophthalmic povidone-iodine 5% were then applied to the eye followed by two drops of Imprimis combination prednisolone/moxifloxacin/nepafenac solution. The drapes were removed and a clear plastic protective eye shield was placed over the eye. The patient was then returned to Same Day Surgery in stable condition.
[2020-12-23 10:40] VITALS: BP 132/96; PULSE 91; RESP 18; TEMP 36.4; O2SAT 98
--- NOTE | 2020-12-23 10:56 | W.ANESPOSTOP ---
Postoperative Evaluation Date, Time and Location Date Performed: 12/23/20 Time Performed: 10:40 Patient Location: Day Surgery Unit Vital Signs Most Recent Imported Vital Signs: Most Recent Vital Signs Temp Pulse Resp BP Pulse Ox 36.4 C L 91 H 18 132/96 H 98 12/23/20 10:40 12/23/20 10:40 12/23/20 10:40 12/23/20 10:40 12/23/20 10:40 Pain Score Most Recent Pain Score: Most Recent Pain Score Pain Level 0 12/23/20 10:40 Assessment Mental Status: Awake (Alert & Oriented to Patient Baseline) Airway and Respiratory Function: Patent airway with normal (patient baseline) respiratory exam Cardiovascular Function: Hemodynamically Stable Hydration Status: Adequately Hydrated Nausea & Vomiting: No Nausea or Vomiting Pain: Pt. Denies Any Pain Peripheral Nerve Block: Patient did not receive a nerve block
[2020-12-23 11:10] VITALS: BP 131/74; PULSE 90; RESP 16; TEMP 37; O2SAT 95
== END 2020-12-23 11:10 | disposition home or self-care (01) ==
PROVIDERS: PCP Nurse Practitioner Family; Visit Provider Ophthalmology
PROC: (CPT 66984; principal; 2020-12-23 11:30)
DX: H25.042 Posterior subcapsular polar age-related cataract, left eye (principal); F11.20 Opioid dependence, uncomplicated; E11.9 Type 2 diabetes mellitus without complications
CPT/HCPCS: 66984; V2632

== ENCOUNTER 2021-01-23 17:35 | Outpatient (REF) | payer OTHER, MEDICAID, SELFPAY ==
[2021-01-25 16:50] LABS: COVID-19 RT-PCR UVMMC Result Negative (Negative)
== END 2021-01-23 17:36 | disposition home or self-care (01) ==
LOC: LBN 17:35
PROVIDERS: PCP Nurse Practitioner Family; Visit Provider Nurse Practitioner Family
DX: Z20.822 Contact with and (suspected) exposure to COVID-19 (principal)
CPT/HCPCS: 80061; U0003

== ENCOUNTER → 2021-03-10 13:11 | Outpatient (BNVA) | payer OTHER, MEDICAID, SELFPAY | PROVIDERS: PCP Nurse Practitioner Family; Referring Provider Nurse Practitioner Family; Visit Provider Surgery | DX: K21.9 Gastro-esophageal reflux disease without esophagitis (principal); R13.13 Dysphagia, pharyngeal phase; Z86.73 Personal history of transient ischemic attack (TIA), and cerebral infarction without residual deficits; Z87.891 Personal history of nicotine dependence; E11.9 Type 2 diabetes mellitus without complications | CPT/HCPCS: 99214; 99242 ==

== ENCOUNTER 2021-03-17 03:18 | Outpatient (CLI) | payer OTHER, MEDICAID, SELFPAY ==
[2021-03-17 10:43] LABS: Source Nasal/Nares
[2021-03-17 13:15] LABS: COVID-19 PCR Negative (Negative)
== END 2021-03-17 03:19 | disposition home or self-care (01) ==
PROVIDERS: PCP Nurse Practitioner Family; Visit Provider Surgery
DX: Z20.822 Contact with and (suspected) exposure to COVID-19 (principal)
CPT/HCPCS: 87635

== ENCOUNTER 2021-03-18 08:54 | Day surgery (SDC) | payer OTHER, MEDICAID, SELFPAY ==
--- NOTE | 2021-03-17 15:21 | ENDO_ITS ---
Date of service: 03/18/21 Endoscopy Report DATE OF PROCEDURE: 03/18/21 PRE-OP DIAGNOSIS: chronic larynigitis POST-OP DIAGNOSIS: other (Subjective/gel ulcer/gastritis/hiatal hernia/bile reflux gastritis/esophagitis and esophageal ulcer) SURGEON: Abby Tsai ANESTHESIA TYPE: General:No Airway PATHOLOGY: other COMPLICATIONS: None DISPOSITION: same day PROCEDURE DESCRIPTION: After informed consent was obtained the patient was take to the procedure room and placed in a supine position. Monitors were applied and a time out was done. The patients name, date of , procedure type, allergies to medications and metal in their body was reviewed. A bite block was placed and the patient was sedated. Once sedated and comfortable the gastroscope was advanced through the oropharynx which was grossly normal into the esophagus. The proximal and mid-esophagus were nl In the distal esophagus there was no: Varices or diverticulum. She does have a small 2 cm sliding hiatal hernia. She has moderate esophagitis and x2 small esophageal ulcers. There is no signs of active bleeding.. The scope was advanced into the stomach and through the pylorus into the 3rd portion of the duodenum. The duodenum was noted to be nl. Biopsies were done -all specimen is retrieved and no bleeding is noted.. The scope was retracted back into the stomach and biopsies were done to rule out H. pylori. There were no ulcers. She does have moderate to severe gastritis at the antrum radiating out from the antrum in a striped fashion. She has 3 or 4 punctate erythematous areas that are severe gastritis and appear as if they are trying to ulcerate. There is no signs of active bleeding. She does have bile reflux into the stomach. the scope was retroflexed. The cardia and fundus were noted to be normal. There 2cm sliding type hiatal hernia noted. The scope was retracted back into the esophagus and biopsies were done of the GE junction to rule out Woodard's. The Z line was irregular. The scope was removed and the patient was woken up and taken back to [facility] in stable condition. Follow up:
--- NOTE | 2021-03-17 20:47 | PDOC.DSDIS_ITS ---
Discharge Plan Disposition Patient Disposition: HOME Condition: Good Discharge Details Reason For Visit: stomach scope Attending Provider: Abby Tsai Primary Care Provider: Maximus Leiva Home Meds and New Rx's Prescriptions: New sucralfate [Carafate] 1 gram tablet 1 g PO QACHS Qty: 120 RF: 6 Continued aspirin 325 mg tablet 325 mg PO DAILY RF: 0 amitriptyline 50 mg tablet 50 mg PO QHS Qty: 90 RF: 4 acetaminophen [Tylenol Extra Strength] 500 mg tablet 500 mg PO Q6H PRNRF: 0 Changed pantoprazole [Protonix] 40 mg tablet,delayed release (DR/EC) 40 mg PO BID Qty: 90 RF: 12 Discontinued ibuprofen 200 mg capsule 200 mg PO Q6H PRNRF: 0 naproxen sodium [Aleve] 220 mg Capsule 220 mg PO PRN PRNRF: 0 Discharge Instructions Additional Instructions: Post EGD Instruction You have just had a gastroscopy (EGD) or upper GI tract examination. It is important for your smooth recovery that you carefully follow the recommendations below. Do not hesitate to call if any questions should arise about your anesthesia, condition, or care. Call your physician, Dr. Abby Tsai, DO at [phone], (Our office is open 8:00am-4:30pm M-F. After hours you should call the hospital or go to the emergency room) if any of the following problems occur: 1. Vomiting blood and /or ?coffee ground? material. 2. Worsening of abdominal pain or cramping. 3. Trouble with breathing, cough, and/or fever (temperature above 101.5 F). 4. Increasing pain with swallowing. 5. Chest pain. 6. Any new symptoms. 7. Worsening of the redness at the IV site Symptoms you may experience during the next 24 hours: 1. Mild abdominal pain or excessive gas or a bloated feeling which improves with rest, liquids, eating slightly, and walking as tolerated. 2. Drowsiness and/or forgetfulness because of the medications you were given. 3. Throat numbness for about 1 hour. 4. A sore throat which you can treat with throat lozenges or by gargling with salt water 4-5 times a day. 5. Redness at the site of your IV which you can treat with warm compresses. SPECIAL INSTRUCTIONS: 1. You may resume your previous diet in one hour. We recommend a light meal to start, then progress as tolerated. 2. No alcohol, driving, operating heavy machinery, or making ?legally-binding? decisions until you have had a good night?s sleep. 3. Restart regular medications in one hour. 4. If you had biopsies or an esophageal dilation (stretching), no aspirin or non-steroidal containing medication for three days. 5. Also, with an esophageal dilation you may have a sore throat for 2 days and you should only eat full liquids foods for the next 24 hrs. and a soft diet for the next 24 hrs. after that. 6. It is important to relax for the rest of the day. You may return to normal activities the day after your procedure. - Continue with lifestyle modifications: no alcohol, tobacco products, Aspirin or NSAID's (ibuprofen, Motrin, Naprosyn, aleve, etc), soda pop/any carbonated beverages, caffeine (including tea & chocolate), and acidic foods, (tomatoes, citrus, onions, peppermints) spicy or fried/fatty foods. Do not lie down for 30 minutes after eating, and do not eat 2 hours prior to bedtime. Avoid wearing tight fitting clothing/ belts Rx: protonix - increase to twice a day and carafate - check meds for int eractions. take at bedtime and before you take aspirin F/u in 2-3 wks w/ Eulalio Activity:: see above Diet:: Carb Counting Discharge Orders Discharge Orders: Discharge Order (Routine); Ordered 03/18/21 Ordered By: Abby Tsai DS: Diagnosis Discharge Diagnosis (1) GERD (gastroesophageal reflux disease): Status: Chronic (2) Hiatal hernia with GERD: Status: Acute (3) Erosive esophagitis: Status: Acute (4) Bile reflux gastritis: Status: Acute (5) Reflex sympathetic dystrophy of the arm: Status: Chronic (6) Diabetes mellitus type 2, controlled: Status: Chronic (7) Migraine: Status: Chronic
[2021-03-18 09:15] VITALS: BP 113/96; PULSE 81; RESP 16; TEMP 36.1; O2SAT 95
[2021-03-18] MEDS: Lactated Ringers 1,000 ML 80 ML IV (09:35)
--- NOTE | 2021-03-18 09:35 | ANES.PREOP_ITS ---
General Info Date of Service Date Performed: 03/18/21 Height: 5 ft 5 in Weight: 86.5 kg Body Mass Index (BMI): 31.7 Surgical Procedure: Operation Date: 03/18/21 09:35 Proposed Procedures Side Surgeon p Gastroscopy Abby Tsai, DO Meds Allergies and Home Medications Allergies Allergy/AdvReac Type Severity Reaction Status Date / Time Opioids - Morphine Analogues AdvReac Intermediate nausea Verified 03/18/21 09:26 oxycodone [From [facility] ER] AdvReac Unknown Nausea, Verified 03/17/21 12:20 headache Home Medication Medication Instructions Recorded aspirin 325 mg tablet 325 mg PO DAILY 05/01/20 amitriptyline 50 mg tablet 50 mg PO QHS #90 tab 11/04/20 pantoprazole 40 mg tablet,delayed 40 mg PO DAILY #90 tab 03/10/21 release acetaminophen 500 mg tablet 500 mg PO Q6H PRN 03/13/21 ibuprofen 200 mg capsule 200 mg PO Q6H PRN 03/13/21 naproxen sodium [Aleve] 220 mg PO PRN PRN 03/18/21 Current Visit Medications: Current Medications Generic Name Dose Route Start Last Admin Trade Name Freq PRN Reason Stop Dose Admin Ringer's Solution 1,000 mls @ 80 mls/hr 03/18/21 06:00 IV 04/16/21 23:59 INFUSION JADE IV Miscellaneous Supplies 1 each 03/18/21 06:00 Iv Access IV 04/16/21 23:59 DIRECTED JADE Sodium Chloride 0 ml 03/18/21 06:00 Normal Saline Flush 10 Ml Syr IV 04/16/21 23:59 PRN PRN Sodium Chloride 0 ml 03/18/21 06:00 Normal Saline 10 Ml Vial IJ 04/16/21 23:59 DIRECTED PRN Sterile Water 0 ml 03/18/21 06:00 Water,Injection,Sterile 10 Ml Vial IJ 04/16/21 23:59 DIRECTED PRN PFSH Active Problems Active Problems: Problem Status Onset Code Reflex sympathetic dystrophy of the arm G90.519 Diabetes mellitus type 2, controlled E11.9 Hyperlipidemia E78.5 Degeneration of intervertebral disc of lumbosacral region M51.37 Lumbar spinal stenosis ~05/27/18 M48.061 Depressive disorder F32.9 Fibromyalgia M79.7 GERD (gastroesophageal reflux disease) K21.9 Migraine G43.909 Body mass index (BMI) of 30.0 to 30.9 in adult Z68.30 Pulmonary nodules R91.8 Chronic pain G89.29 History of TIAs Z86.73 History of nicotine use Z87.891 Trochanteric bursitis M70.60 Lumbar radiculopathy M54.16 Facet syndrome, lumbar M47.816 Opioid dependence F11.20 Cannabis dependence F12.20 Tinea pedis B35.3 Muscle cramp R25.2 Chest pain R07.9 Nuclear sclerotic cataract of left eye H25.12 Posterior subcapsular age-related cataract of left eye H25.042 URI (upper respiratory infection) J06.9 Swallowing difficulty R13.10 Medical History Medical History Knee pain s/p meniscal surgery ([place]) Leg pain Low blood pressure Prolapsed cervical intervertebral disc Right lower quadrant abdominal pain Medical History Comments:: Pt. requests no IV in right arm. PMH of RSD. Daily cannabis use, last smoedk 03/17/21 Surgical History Surgical History H/O discectomy (~2006) H/O laminectomy H/O lumbosacral spine surgery x2 History of hysterectomy (~02/22/95) for menorrhagia History of right cataract surgery History of right-sided carotid endarterectomy (~12/23/16) s/p x2 TIAs F/U with PCP at [facility] Hx of elbow surgery chronic tennis elbow Hx of right knee surgery meniscal repair S/P carpal tunnel release (~02/22/03) R Tobacco Smoking/Tobacco Use Status: Former Tobacco Use Tobacco: How many years used: 30 Passive smoking exposure: Yes Second hand exposure: Yes Alcohol Alcohol Intake: never Substance Use Substance use: Daily Substance use type: marijuana Details: last smoked 03/17/21 Vital Signs and Lab Results Vital Signs Most Recent Vital Signs in EMR: Most Recent Vital Signs Temp Pulse Resp BP Pulse Ox 36.1 C L 81 16 113/96 H 95 03/18/21 09:15 03/18/21 09:15 03/18/21 09:15 03/18/21 09:15 03/18/21 09:15 Point of Care Results Point of Care Results: Finger Stick Blood Glucose 118 03/18/21 09:20 Lab Results Blood Type / Crossmatch: No Data to Display Complete Blood Count: No Data to Display Complete Metabolic Panel: No Data to Display Liver Function Panel: No Data to Display Coagulation Panel: No Data to Display Cardiac Panel: No Data to Display Arterial Blood Gas: No Data to Display Venous Blood Gas: No Data to Display Pancreas Panel: No Data to Display Thyroid Panel: No Data to Display Infectious Disease: Coronavirus (COVID-19)(PCR) Negative (Negative) 03/17/21 08:53 03/17/21 Coronavirus 2019 Source Nasal/Nares 03/17/21 08:53 03/17/21 Blood Cultures: No Data to Display Toxicology Panel: No Data to Display Imaging and Studies Imaging and Studies Study information below may be from another EMR and interpreted by another provider. Please see original notes in EMR for more complete details. EKG Summary: Conclusion Sinus rhythm...normal P axis, V-rate 60- 99 Multiple ventricular premature complexes...V complexes w/ short R-R intervls Borderline T abnormalities, diffuse leads...T flat/neg 11/07/20 Anesthesia Assessment and Plan Anesthesia History Personal History: No History of Anesthesia Complications Family History: No Family History of Anesthesia Complications Exercise Tolerance Exercise Tolerance: Metabolic Equivalents<4 (Back discomfort) Cardiac & Pulmonary Exam Cardiac Exam: Normal S1/S2 Heart Sounds Pulmonary Exam: Clear Bilateral Breath Sounds Implantable Cardiac Device Does patient have a Pacemaker or an ICD?: No Airway Exam Known Difficult Airway: No Mallampati Class: 3 Mouth Opening: Normal (> 3cm) Thyromental Distance: Greater than 3 cm Neck Range of Motion: Full ROM Neck Circumference: Normal Teeth Condition: Normal Dentition and Removable Dentures/Plates Upper ASA Classification ASA Score: ASA 2 Emergency Case?: No NPO Status NPO Status: NPO Clears >2 hours, Solids >8 hours Anesthesia Plan Resuscitation Status: Full Code Anesthesia Technique: General Anesthesia Airway Planned: Natural Airway Monitors Used: Standard Monitors
[2021-03-18 09:45] VITALS: BMI 31.7
--- NOTE | 2021-03-18 11:05 | STOM_PTH ---
PATIENT: Griselda Zamorano LOC: [facility] U#:[id number] AGE/SX: 61/F ROOM: RE03/18/[address]: Abby Tsai : 1960 BED: DIS: 03/18/2021 SPEC #: [id number] RECD: 03/18/21 12:04 STATUS: CRISTOBAL RESissy #: [id number] AUBREY: 03/18/21 11:[address]: Abby Tsai DEPT: Surgical Specimen RECD BY: Kenzie Bell ENTERED: 03/18/21 12:06 SP TYPE: STOMACH OTHR DR: Maximus Leiva, [employer]IVE[employer] CARETAKER Tissues: 1 - BIOPSY BOWEL 2 - BIOPSY BOWEL 3 - STOMACH BIOPSY 4 - ESOPHAGUS BIOPSY Procedures: GROSS AND MICRO LEVEL 4 Comments: [id number]
[2021-03-18 11:32] VITALS: BP 95/76; PULSE 87; RESP 16; TEMP 36.2; O2SAT 94
--- NOTE | 2021-03-18 11:55 | W.ANESPOSTOP ---
Postoperative Evaluation Date, Time and Location Date Performed: 03/18/21 Time Performed: 11:32 Patient Location: Day Surgery Unit Vital Signs Most Recent Imported Vital Signs: Most Recent Vital Signs Temp Pulse Resp BP Pulse Ox 36.2 C L 87 16 95/76 L 94 03/18/21 11:32 03/18/21 11:32 03/18/21 11:32 03/18/21 11:32 03/18/21 11:32 Pain Score Most Recent Pain Score: Most Recent Pain Score Pain Level 0 03/18/21 11:32 Assessment Mental Status: Awake (Alert & Oriented to Patient Baseline) Airway and Respiratory Function: Patent airway with normal (patient baseline) respiratory exam Cardiovascular Function: Hemodynamically Stable Hydration Status: Adequately Hydrated Nausea & Vomiting: No Nausea or Vomiting Pain: Pt. Denies Any Pain Peripheral Nerve Block: Patient did not receive a nerve block
[2021-03-18 12:05] VITALS: BP 140/95; PULSE 81; RESP 16; TEMP 36.3; O2SAT 94
[2021-03-18] MEDS: Pantoprazole 40 MG VIAL IVP (12:25)
[2021-03-18] MEDS: Normal Saline 10 ML VIAL IJ (12:27)
== END 2021-03-18 13:32 | disposition home or self-care (01) ==
LOC: SUR 08:54
PROVIDERS: PCP Nurse Practitioner Family; Visit Provider Surgery
PROC: 0DJ68ZZ Inspection of Stomach, Via Natural or Artificial Opening Endoscopic (ICD-10-PCS; CPT 43235; principal; 2021-03-18 09:30)
DX: K22.10 Ulcer of esophagus without bleeding (principal); K21.9 Gastro-esophageal reflux disease without esophagitis; K29.70 Gastritis, unspecified, without bleeding; K44.9 Diaphragmatic hernia without obstruction or gangrene; E11.9 Type 2 diabetes mellitus without complications; E78.5 Hyperlipidemia, unspecified; Z87.891 Personal history of nicotine dependence; J37.0 Chronic laryngitis
CPT/HCPCS: 43239; 88305; J2001

== ENCOUNTER 2021-04-01 15:40 | Emergency (ER) | payer MEDICARE, MEDICAID, SELFPAY ==
[2021-04-01 15:49] VITALS: BP 120/76; PULSE 100; RESP 14; TEMP 36.6; O2SAT 98
--- NOTE | 2021-04-01 16:00 | DI.CT_ITS ---
Exam(s) CT RENAL COLIC WO EXAM: CT RENAL COLIC WO CLINICAL HISTORY: Right Flank pain. TECHNIQUE: Imaging Protocol: Axial computed tomography images with coronal and sagittal reformatted images were created and reviewed CONTRAST MATERIAL: Intravenous: none Oral: None COMPARISON: CT CT THORAX CTA from 11/07/2020 FINDINGS: VISUALIZED LUNG BASES: There is some infiltrate noted in both lower lobes, more than was evident on c hest CT scan of 11/07/2020. There are no pleural effusions.. ABDOMEN: There is no ascites. LIVER: There are no obvious focal hepatic lesions evident of this noninfused study. GALLBLADDER/BILIARY: No obvious gallbladder pathology. CBD is not dilated. PANCREAS: No evidence of pancreatic mass nor dilatation of the pancreatic duct. SPLEEN: Spleen is not enlarged. No obvious intrasplenic lesions. ADRENALS: There are no significant adrenal masses. KIDNEYS:No cysts evident. No solid renal masses. No calculi nor hydronephrosis. . ABDOMINAL AORTA: Abdominal aorta is not enlarged. LYMPH NODES: There is no retroperitoneal nor paraaortic adenopathy. ABDOMINAL WALL: There is a fat only containing umbilical hernia. No significant inguinal hernia. GI: There is no evidence of bowel obstruction, free air, nor abscess. PELVIS: LYMPH NODES: There is no intrapelvic nor inguinal adenopathy. GI: No evidence of appendicitis.No evidence of sigmoid diverticulitis. URINARY BLADDER: No calculi nor obvious masses evident REPRODUCTIVE: The uterus is surgically absent. There are no abnormal adnexal masses. OSSEOUS: Posterior fusion hardware evident at L3-S1 levels. Multilevel bilateral intrapedicular scre ws. No fractures. IMPRESSION: 1. Uppermost images of this abdominal study reveal mild infiltrate in both lung bases not evident on prior chest CT scan of October 2020. No associated pleural effusions. Recommend testing forCovid- 19. 2. There has been prior hysterectomy. No abnormal adnexal masses. No free fluid 3. Small fat only containing umbilical hernia. No bowel obstruction. Multilevel fusion surgery L3-S1 levels noted. Report 1st read by [facility] Final report called by myself to ER physician 04/02/2021 at 8:05 a.m. RADIATION DOSE DELIVERED: 1,027.19mGy.cm Total DLP DATA REPOSITORY: All CT scans at this facility are submitted to the National Radiology Data Registry (NRDR) Dose Index Registry (DIR) with the [employer] (ACR). RADIATION OPTIMIZATION: All CT scans at this facility use at least one of these dose optimization te chniques: automated exposure control; mA and/or kV adjustment per patient size (includes targeted exa ms where dose is matched to clinical indication); or iterative reconstruction.
--- NOTE | 2021-04-01 16:10 | W.ED.GENAD ---
Discharge Plan Disposition Patient Disposition: HOME Condition: Stable Discharge Details Clinical Impression: Lumbago Primary Care Provider: Maximus Leiva ED Provider: Maru Hendricks Home Meds and New Rx's Prescriptions: No Action aspirin 325 mg tablet 325 mg PO DAILY RF: 0 amitriptyline 50 mg tablet 50 mg PO QHS Qty: 90 RF: 4 sucralfate [Carafate] 1 gram tablet 1 g PO QACHS Qty: 120 RF: 6 pantoprazole [Protonix] 40 mg tablet,delayed release (DR/EC) 40 mg PO BID Qty: 90 RF: 12 Discharge Instructions Instructions: Low Back Strain (ED), Muscle Spasm (ED) Additional Instructions: Alternate ice and heat. At this time there is no evidence appendicitis, no evidence for urinary tract infection or kidney stone. Follow up with primary care provider in 3-5 days. Return to ED sooner if any worsening or concerns. Increase oral fluids. Please take Tylenol or Ibuprofen with food every 4-6 hours as needed for pain and swelling. Referrals: Maximus Leiva, [employer] [Primary Care Provider] - 3 days Medical Decision Making 51-year-old female presents to the ER with chief complaint of right flank pain which radiates to her right groin which began on Wednesday. She does report of emesis on Wednesday. Denies any fever or chills. She reports that this is different than her normal back pain. She does have a history of low back pain and has had a lumbar surgery. She reports sharp shooting pain denies any problems urinating, burning with urination. Denies any other associated symptoms. Do not take any medication prior to arrival CBC, CMP, urinalysis, IV CT without contrast ordered. CBC within normal limits, CMP largely normal limits. Urinalysis shows slightly elevated specific gravity no leukocytes no nitrites. FINDINGS: Lungs: There is mild patchy ground-glass opacity within the lung bases with superimposed mosaic attenuation suggesting mild bronchiolitis with pneumonitis, new since prior study. Liver: Normal. No mass. Gallbladder and bile ducts: Normal. No calcified stones. No ductal dilation. Pancreas: The pancreas is moderately atrophic but appears otherwise unremarkable without focal lesion or evidence of acute inflammation. Spleen: Normal. No splenomegaly. Adrenal glands: Normal. No mass. Kidneys and ureters: No renal or ureteral stones are identified. There is no hydronephrosis or hydroureter. Stomach and bowel: There is no evidence of small or large bowel inflammation. There is no evidence for bowel obstruction. There is mild fatty infiltration of the submucosa of the distal colon from the level of the mid descending colon through the rectum, suggesting sequela of prior colitis. Appendix: The appendix is well visualized. There is no evidence for appendicitis. There are a few tiny calcifications within the appendix suggesting appendicoliths. Intraperitoneal space: There is no evidence for free intraperitoneal air. No ascites is identified. Vasculature: The aorta and iliac arteries demonstrate moderate atherosclerotic calcification without aneurysm formation. Lymph nodes: Unremarkable. No enlarged lymph nodes. Urinary bladder: No bladder stones are identified. Reproductive: There has been a hysterectomy. Bones/joints: There have been prior laminectomies at L3-L5 with posterior fusion hardware from L3- S1, which appears intact. No acute fractures are identified. Soft tissues: There is a stable 1.3 x 1.0 cm fat containing umbilical hernia. IMPRESSION: 1. No urinary tract stones identified. No hydronephrosis or hydroureter. 2. No acute process within the abdomen or pelvis identified. 3. Stable tiny fat containing umbilical hernia. Thank you for allowing us to participate in the care of your patient. Dictated and Authenticated by: Srikanth Ahuja MD [id number]: Discussed CT results with patient who verbalized her standing. I did offer once again her pain relief I offered muscle relaxers or lidocaine patch patient declined at this time. Patient discharged home with home care instructions. This text was generated using [employer] dictation system, please disregard any oddities of phrase or misspellings. HPI General Mode of arrival: ambulatory. Date/Time Provider Initiated Documentation: 04/01/21 15:46. Limitations to Documentation: no limitations. Information obtained by: patient, RN notes reviewed and old records reviewed. HPI Narrative: 51-year-old female presents to the ER with chief complaint of right flank pain which radiates to her right groin which began on Wednesday. She does report of emesis on Wednesday. Denies any fever or chills. She reports that this is different than her normal back pain. She does have a history of low back pain and has had a lumbar surgery. She reports sharp shooting pain denies any problems urinating, burning with urination. Denies any other associated symptoms. Do not take any medication prior to arrival Related Data Home Medications Medication Instructions Recorded Confirmed aspirin 325 mg tablet 325 mg PO DAILY 05/01/20 04/01/21 amitriptyline 50 mg tablet 50 mg PO QHS #90 tab 11/04/20 04/01/21 pantoprazole [Protonix] 40 mg PO BID #90 tab 03/18/21 04/01/21 sucralfate [Carafate] 1 g PO QACHS #120 tab 03/18/21 04/01/21 Previous Rx's Medication Instructions Recorded amitriptyline 50 mg tablet 50 mg PO QHS #90 tab 11/04/20 pantoprazole [Protonix] 40 mg PO BID #90 tab 03/18/21 sucralfate [Carafate] 1 g PO QACHS #120 tab 03/18/21 Allergies Allergy/AdvReac Type Severity Reaction Status Date / Time Opioids - Morphine Analogues AdvReac Intermediate nausea Verified 04/01/21 15:51 oxycodone [From [facility]] AdvReac Unknown Nausea, Verified 04/01/21 15:51 headache General Stated Complaint: Orthopedic KATHRINE: 3 Review of Systems All systems reviewed & are unremarkable except as noted in HPI and below PFSH All Active Problems (Updated 04/01/21 @ 18:46 by Maru Hendricks) Lumbago (Acute) Lumbosacral spondylosis without myelopathy (Acute) Bile reflux gastritis (Acute) Erosive esophagitis (Acute) Hiatal hernia with GERD (Acute) Reflex sympathetic dystrophy of the arm (Chronic) RSD RUE--on disability Diabetes mellitus type 2, controlled (Chronic) Dx'ed ~2019; Metformin Hyperlipidemia (Acute) PVD s/p endarderectomy; on statin Degeneration of intervertebral disc of lumbosacral region (Acute) Lumbar spinal stenosis (Chronic ~05/27/18) Depressive disorder (Chronic) Fibromyalgia (Chronic) GERD (gastroesophageal reflux disease) (Chronic) Omeprazole; EGD many years ago; never used H2 krystina Migraine (Chronic) RX Topamax; breakthrough is rest & dark room (couple times per year) Body mass index (BMI) of 30.0 to 30.9 in adult (Acute) Pulmonary nodules (Acute) CT 04/2020: Tiny subpleural nodules in the lungs. For low risk patient, no routine follow-up is recommended. For high risk patients, (history of smoking or other known risk fractures) optional CT scan of the chest at 12 months should be considered. Chronic pain (Chronic) Spine & RSD RUE; long-term hydrocodone-apap since 2015; s/p multiple lumbar spine surgeries; +DIsability History of nicotine use (Chronic) 30 pack years; quit 2001 Trochanteric bursitis (Acute) Lumbar radiculopathy (Acute) Facet syndrome, lumbar (Acute) Opioid dependence (Acute) Clean for 2 months on 09/05/20 Cannabis dependence (Acute) daily use Tinea pedis (Acute) Muscle cramp (Acute) Chest pain (Acute) URI (upper respiratory infection) (Acute) Swallowing difficulty (Acute) Medical History Knee pain s/p meniscal surgery ([place]) Leg pain Low blood pressure Prolapsed cervical intervertebral disc Right lower quadrant abdominal pain Surgical History H/O discectomy (~2006) H/O laminectomy H/O lumbosacral spine surgery x2 History of esophagogastroduodenoscopy (EGD) (~03/18/21) History of hysterectomy (~02/22/95) for menorrhagia History of right cataract surgery History of right-sided carotid endarterectomy (~12/23/16) s/p x2 TIAs F/U with PCP at [facility] Hx of elbow surgery chronic tennis elbow Hx of right knee surgery meniscal repair S/P carpal tunnel release (~02/22/03) R Family History Father , 76yo lung cancer Cancer Lung Heart disease Hypertension Sister , 44yo lung cancer Cancer all organs Mother , 84yo dementia Dementia Sister No problems noted. Sister No problems noted. Brother No problems noted. Social History Smoking/Tobacco Use Status: Former Tobacco Use tobacco type: cigarettes Quit Date: 02/22/01 Tobacco: How many years used: 30 Second Hand Exposure: Yes Smoking risk assessment performed?: Yes Alcohol Intake: never Drug use: Daily Substance use type: marijuana Adopted: No Caregiver/Support person: No Foster care: No Household members: none Do you need help understanding health information?: Never Pets and animals: Yes Sexually active: Yes Do you think of yourself as: straight/heterosexual Current gender identity: female What is your relationship status?: How often do you talk on the phone with friends or family?: three or more times per week How often do you get together with friends or relatives?: twice per week How often do you attend anglican or buddhism services?: decline to answer Do you belong to any clubs or organized social groups?: no Panel score (0-1 are the most socially isolated patients): 1 What type of physical activity do you participate in: walking Duration: 30-45 minutes/day Frequency: 3-4 times per week Paola/Holiness: No preference Special paola needs: No Agree to transfusion: No Seatbelt use: always Helmet use: No Drive intox or ride w/intox cdl dedicated truck driver: No Do you feel safe at home: Yes Do you feel safe in your relationship?: Yes Additional Social history: lives alone Exam Narrative Exam Narrative: Constitutional: Alert and oriented x3. Appears stated age. Normal body habitus. Head: Normocephalic, no trauma. Eyes: Pupils PERRL, Red reflex noted, EOM's intact. Eyelids symmetrical without lesions, discharge, or swelling. ENT: Bilateral TM's WNL, External ear normal to inspection, no mastoid TTP, swelling, or erythema, Nasal turbinates WNL, no nasal discharge. Normal dentition, Posterior pharynx WNL, no exudate. Chest: RRR, Normal S1, S2, distal pulses intact. Resp: Lungs clear to auscultation bilaterally, no wheezes, rales, or rhonchi. Abdomen: Soft, non-distended, Normoactive bowel sounds all 4 quads. Right CVA tenderness, tender to the right lower quadrant. Musculoskeletal: Normal gait, 5/5 strength to all four extremities. Skin: No suspicious rashes or lesions. Capillary refill less than 2 sec. Neurologic: Cranial nerves II-XII intact. Alert and oriented x 3. Motor: No deficits noted. Sensory: Intact bilaterally all 4 extremities. Reflexes: DTR's intact bilaterally.. Hematologic/Lymphatic: No ecchymosis, no lymphadenopathy. Course Vital Signs Vital signs: Vital Signs Temperature 36.6 C 04/01/21 15:49 Pulse 100 H 04/01/21 15:49 Respiratory Rate 14 04/01/21 15:49 Blood Pressure 120/76 04/01/21 15:49 Pulse Oximetry 98 04/01/21 15:49 Temperature 36.6 C 04/01/21 15:49 Temperature Source Temporal Artery Scan 04/01/21 15:49 Pulse 100 H 04/01/21 15:49 Respiratory Rate 14 04/01/21 15:49 Respiratory Effort Non-Labored 04/01/21 15:52 Blood Pressure 120/76 04/01/21 15:49 Blood Pressure Position Sitting 04/01/21 15:49 Pulse Oximetry 98 04/01/21 15:49 Oxygen Delivery Method Room Air 04/01/21 15:49 Oxygen Flow Rate 0 04/01/21 15:49 Pain Level 10 04/01/21 15:52
[2021-04-01 16:58] LABS: Bilirubin Negative (Negative); Blood Negative (Negative); Clarity Clear (Clear); Glucose Negative (Negative); Ketones Negative (Negative); Leukocyte Esterase Negative (Negative); Nitrite Negative (Negative); Specific Gravity >= 1.030 (1.005-1.025); Urobilinogen 0.2 EU/dL (Up TO 0.2)
[2021-04-01 17:05] LABS: Abs Immature Grans 0.05 10^3/uL (0.0-0.06); Absolute Basophil Count 0.07 10^3/uL (0.0-0.2); Absolute Eosinophil Count 0.25 10^3/uL (0.0-0.7); Absolute Monocyte Count 0.64 10^3/uL (0.1-0.8); Absolute Neutrophil Count 5.31 10^3/uL (1.2-6.7); Basophils % 0.7; Eosinophils % 2.5; HCT 40.4 % (36.0-46.0); HGB 12.7 g/dL (11.2-15.7); Immature Grans % 0.5; Lymphocytes % 36.9; MCHC 31.4 % (32.0-36.0); MPV 9.9 fL (8.0-11.0); Monocytes % 6.4; Nucleated RBC 0 %; Platelet Count 345 10^3/uL (130-400); RDW 14.6 % (11.7-14.6); RDW-SD 46.7 fL; WBC 10.02 10^3/uL (4.4-10.8)
[2021-04-01 17:21] LABS: ALT 48 U/L (14-59); AST 21 U/L (15-37); Albumin 4.1 g/dL (3.4-5.0); Alkaline Phosphatase 111 U/L (46-116); Anion Gap 6.5 mmol/L (3-11); BUN 15 mg/dL (7-18); Bilirubin, Total 0.2 mg/dL (0.2-1.0); CO2 29.5 mmol/L (21.0-32.0); CREATININE 1.1 mg/dL (0.55-1.02); Calcium 9.4 mg/dL (8.5-10.1); Chloride 104 mmol/L (98-107); Glucose 96 mg/dL (74-106); Potassium 3.9 mmol/L (3.5-5.1); Sodium 140 mmol/L (136-145); Total Protein 8.1 g/dL (6.4-8.2)
[2021-04-01 18:14] VITALS: BP 121/67; PULSE 83; RESP 12; TEMP 36.7; O2SAT 97
--- NOTE | 2021-04-01 18:38 | DI.VRAD_ITS ---
PROCEDURE INFORMATION: Exam: CT Abdomen And Pelvis Without Contrast Exam date and time: 04/01/2021 4:10 PM Age: 61 years old Clinical indication: Other: Right flank pain; Prior surgery; Surgery date: 6+ months; Surgery type: Spine TECHNIQUE: Imaging protocol: Computed tomography of the abdomen and pelvis without contrast. Radiation optimization: All CT scans at this facility use at least one of these dose optimization techniques: automated exposure control; mA and/or kV adjustment per patient size (includes targeted exams where dose is matched to clinical indication); or iterative reconstruction. COMPARISON: CT ABDOMEN PELVIS W 04/26/2020 5:42 PM FINDINGS: Lungs: There is mild patchy ground-glass opacity within the lung bases with superimposed mosaic attenuation suggesting mild bronchiolitis with pneumonitis, new since prior study. Liver: Normal. No mass. Gallbladder and bile ducts: Normal. No calcified stones. No ductal dilation. Pancreas: The pancreas is moderately atrophic but appears otherwise unremarkable without focal lesion or evidence of acute inflammation. Spleen: Normal. No splenomegaly. Adrenal glands: Normal. No mass. Kidneys and ureters: No renal or ureteral stones are identified. There is no hydronephrosis or hydroureter. Stomach and bowel: There is no evidence of small or large bowel inflammation. There is no evidence for bowel obstruction. There is mild fatty infiltration of the submucosa of the distal colon from the level of the mid descending colon through the rectum, suggesting sequela of prior colitis. Appendix: The appendix is well visualized. There is no evidence for appendicitis. There are a few tiny calcifications within the appendix suggesting appendicoliths. Intraperitoneal space: There is no evidence for free intraperitoneal air. No ascites is identified. Vasculature: The aorta and iliac arteries demonstrate moderate atherosclerotic calcification without aneurysm formation. Lymph nodes: Unremarkable. No enlarged lymph nodes. Urinary bladder: No bladder stones are identified. Reproductive: There has been a hysterectomy. Bones/joints: There have been prior laminectomies at L3-L5 with posterior fusion hardware from L3-S1, which appears intact. No acute fractures are identified. Soft tissues: There is a stable 1.3 x 1.0 cm fat containing umbilical hernia. IMPRESSION: 1. No urinary tract stones identified. No hydronephrosis or hydroureter. 2. No acute process within the abdomen or pelvis identified. 3. Stable tiny fat containing umbilical hernia. Dictated and Authenticated by: Srikanth Ahuja MD. Ordering:COLT Mahoney MD
== END 2021-04-01 19:07 | disposition home or self-care (01) ==
PROVIDERS: Emergency Provider Registered Nurse Emergency; PCP Nurse Practitioner Family
DX: M54.50 Low back pain, unspecified (principal); R91.8 Other nonspecific abnormal finding of lung field; R10.9 Unspecified abdominal pain
CPT/HCPCS: 36415; 80053; 99284; 74176; 81003; 85025; 99283

== ENCOUNTER 2021-04-03 02:13 | Outpatient (CLI) | payer MEDICARE, MEDICAID, SELFPAY ==
--- NOTE | 2021-04-03 07:00 | DI.US_ITS ---
Exam(s) US CAROTID EXAM: US CAROTID CLINICAL HISTORY: f/u from [facility],h.o tia,[id number]. TECHNIQUE: Ultrasound carotids performed using grayscale, color-flow, and spectral Doppler imaging. COMPARISON: US US PELVIS TRANSVAGINAL from 04/29/2020 FINDINGS: RIGHT CAROTID ARTERY: Mild plaque is noted at the carotid bulb and proximal right ICA but without significantly elevated ve locities implying that amount of stenosis is less than 50 percent LEFT CAROTID ARTERY: There is both calcified and noncalcified plaque at the left carotid bulb and proximal left ICA. This appears more prominent than on the right side. However, velocities indicate that the amount of sten osis is less than 50 percent. EXTERNAL CAROTID ARTERIES: Mildly elevated velocity noted in the proximal right ECA. VERTEBRAL ARTERIES: Antegrade flow demonstrated in both vertebral arteries. Measurements: R Bulb: 46.9cm/s PS / 18.6cm/s ED R CCA: 59.1cm/s PS / 18.6cm/s ED R ECA: 173.5cm/s PS / 26.3cm/s ED R ICA Prox: 55.5cm/s PS /19.1cm/s ED R ICA Mid: 89.7cm/s PS / 38.8cm/s ED R ICA Distal: 92cm/s PS /42.8cm/s ED R Vert: 42.2cm/s PS / 13.9cm/s ED R SVR: 1.56 R DVR: 2.3 L Bulb: 75.8cm/s PS /19.1cm/s ED L CCA: 75.8cm/s PS / 24.9cm/s ED L ECA: 106.6cm/s PS /30.6cm/s ED L ICA Prox:95.9cm/s PS / 38cm/s ED L ICA Mid: 95cm/sPS / 38cm/s ED L ICA Distal: 95.9cm/s PS / 36.4cm/s ED L Vert: 50.9cm/s PS / 16.8cm/s ED L SVR: 1.27 L DVR: 1.53 IMPRESSION: 1. There is plaque demonstrated at both carotid bulbs and proximal internal carotid arteries, slight ly more so on the left side. However, recorded velocities indicate that the amount of stenosis is le ss than 50 percent bilaterally. 2. Flow is demonstrated in both vertebral arteries in the neck and flow in these arteries was demons trated to be antegrade. 3. Slightly elevated velocities at the origin of the right external carotid artery which may indicat e some stenosis at this level. Criteria for Carotid Stenosis: Normal: ICA PSV <125 cm/s no plaque or intimal thickening is visible. <50% stenosis: ICA PSV <125 cm/s and plaque or intimal thickening is visible. 50-69% stenosis: ICA PSV is 125-250 cm/s and plaque is visible. >70% stenosis to near occlusion: ICA PSV >250 cm/s with visible plaque and luminal narrowing. DATA REPOSITORY:
== END 2021-04-03 02:33 ==
PROVIDERS: PCP Nurse Practitioner Family; Visit Provider Surgery
DX: I65.23 Occlusion and stenosis of bilateral carotid arteries (principal); Z86.73 Personal history of transient ischemic attack (TIA), and cerebral infarction without residual deficits; Z87.891 Personal history of nicotine dependence
CPT/HCPCS: 93880

== ENCOUNTER 2021-04-29 04:39 | Outpatient (CLI) | payer OTHER, MEDICAID, SELFPAY ==
[2021-04-29] MEDS: Albuterol HFA 18 GM 200 PUFF INH IH (13:59)
[2021-04-29] MEDS: Inhaler, Assist Device 1 EACH MC (13:59)
== END 2021-04-29 04:40 | disposition home or self-care (01) ==
LOC: RT 04:39
PROVIDERS: PCP Nurse Practitioner Family; Visit Provider Nurse Practitioner Family
DX: R06.02 Shortness of breath (principal); R91.8 Other nonspecific abnormal finding of lung field; R05.3 Chronic cough; Z87.891 Personal history of nicotine dependence
CPT/HCPCS: 94060; 94726; 94729

== ENCOUNTER 2021-05-29 08:08 | Outpatient (CLI) | payer MEDICARE, MEDICAID, SELFPAY ==
--- NOTE | 2021-05-29 06:00 | DI.RAD_ITS ---
Exam(s) XR PAIN CLINIC LUMBAR SP 2V EXAM: XR PAIN CLINIC LUMBAR SP 2V CLINICAL HISTORY: Dx: Lumbar Spondylosis TECHNIQUE: 2D and realtime digital imaging was performed. CONTRAST MATERIAL: Refer to procedure report. COMPARISON: No exams were available for comparison FINDINGS: Fluoroscopy was provided for Dr. Robison during the performance of a bilateral lumbar medial branch blo ck. Please refer to the procedure report for complete details. Ka,r=9.49 mGy IMPRESSION:
[2021-05-29 08:20] VITALS: BP 116/70; PULSE 85; RESP 20; TEMP 36.5; O2SAT 96
--- NOTE | 2021-05-29 09:18 | PDOC.PAIN_ITS ---
Pain Clinic Procedure Note Procedure Note Procedure Note: Lumbar/Sacral Medial Branch Blocks Griselda Zamorano has been referred to the [facility] for lumbar/sacral medial branch blocks. COMMENTS: She was previously evaluated in our office. She has had L3-S1 fusion. We are targeting the L1-L2 and L2-L3 levels just above the fusion. These will be blocked by blocking the bilateral T12, L1, and L2 medial brnaches. Pre- procedure pain VAS = 7/10 Dx: Lumbosacral spondylosis without myelopathy Patient was interviewed and the medical record reviewed. There were no medical, pharmacologic, radiographic or other structural contraindications to attempting fluoroscopically guided local anesthetic lumbar/sacral medial branch blocks. Risks and expected side effects as well as potential benefit of the procedure were reviewed and voiced concerns addressed. The printed consent form was signed and witnessed. Standard time-out procedure was performed. Patient was placed in the prone position on the fluoroscopy table and automated blood pressure cuff and pulse oximeter applied. The skin entry points for approaching the anatomic target points of the segmental medial branches of bilateral T12-L2 were identified with anfluoroscopy and marked. Following thoro ugh Chlorhexadine preparation of the skin and draping and 1% lidocaine infiltration of the skin entry points and subcutaneous tissues, a 25 gauge spinal 3.5 needle was placed under fluoroscopic guidance down on to the target point for each respective segmental medial branch.Position was confirmed in A/P, oblique and lateral views with 0.25ml of omnipaque 240. At this point I injected 0.5ml of 0.5% Bupivacaine at each segmental sensory nerve. The needles were removed without difficulty. Vital signs were stable throughout the procedure and were as recorded in the docflowsheet by the nursing staff. Follow up plans and appointments were discussed and was instructed to keep careful note of how the usual pain was modified by these injections. Specifically was asked to keep a pain diary for the next 24 hours using a numeric pain scale of 0-10 and report these results at the follow-up visit. Post procedure instruction was given as documented in the nursing documentation and having met discharge criteria. Patient was discharged from the [facility] Management [facility]. Based on the medial branches blocked today, if the patient has adequate relief and we are able to proceed to radiofrequency ablation, the treatment should result in the denervation of the bilateral L1-L2 and L2-L3 FACET JOINTS. We would expect to denervate a total of 4 facets during the radiofrequency ablation. COMMENTS: Post-procedure pain VAS = 5/10. Bryce Robison DO, MPH [facility] CC: Maximus Leiva CARBIDE GRINDER
[2021-05-29] MEDS: Bupivacaine 0.5% Pres-Free 10 ML VIAL IJ (09:25)
[2021-05-29] MEDS: Omnipaque 240 MG/ML 50 ML BTL IJ (09:25)
[2021-05-29 09:27] VITALS: BP 123/75; PULSE 90; RESP 12; O2SAT 98
== END 2021-05-29 08:09 | disposition home or self-care (01) ==
LOC: PC 08:09
PROVIDERS: PCP Nurse Practitioner Family; Visit Provider Preventive Medicine Occupational Medicine
DX: M47.817 Spondylosis without myelopathy or radiculopathy, lumbosacral region (principal)
CPT/HCPCS: 64493; 64494; 72100; Q9967

== ENCOUNTER 2021-09-21 13:00 | Emergency (ER) | payer MEDICARE, MEDICAID, SELFPAY ==
[2021-09-21 13:10] VITALS: BP 130/73; PULSE 94; RESP 18; TEMP 36.7; O2SAT 98
--- NOTE | 2021-09-21 13:41 | W.ED.GENAD ---
Discharge Plan Disposition Patient Disposition: HOME Condition: Improving Discharge Details Clinical Impression: Back pain Primary Care Provider: Maximus Leiva ED Provider: Son Hanley Home Meds and New Rx's Prescriptions: New cyclobenzaprine 10 mg tablet 10 mg PO TID PRNQty: 10 0RF Continued sucralfate 1 gram tablet See Rx Instructions .ROUTE .COMPLEX Qty: 360 4RF Dose Instruction: TAKE 1 TABLET BY MOUTH BEFORE MEALS AND AT BEDTIME Rx Instructions: TAKE 1 TABLET BY MOUTH BEFORE MEALS AND AT BEDTIME topiramate [Topamax] 25 mg tablet 25 mg PO DAILY Qty: 90 3RF sumatriptan succinate 50 mg tablet See Rx Instructions PO .COMPLEX Qty: 60 0RF Rx Instructions: take 1 tab at onset of headache; if no relief may repeat 1 tab after at least 2 hrs; max = 4 tabs/24 hr PO amitriptyline 50 mg tablet 50 mg PO QHS Qty: 90 4RF pantoprazole [Protonix] 40 mg tablet,delayed release (DR/EC) 40 mg PO BID Qty: 90 12RF aspirin 325 mg Tablet 325 mg PO DAILY Discharge Instructions Instructions: Back Pain (ED) Additional Instructions: A single dose of IM Toradol given here in the ER. A prescription for Flexeril provided, this medication may cause drowsiness. Please take [id number] Tylenol and Motrin as directed for discomfort. Cool and/or warm compresses every 2 hours for 20 minutes. Gentle stretching as tolerated. Please watch for new or worsening symptoms and return to the ER for any concerns. Otherwise I would like you to contact your primary care provider tomorrow to discuss your ER visit and potential need for outpatient reevaluation. Medical Decision Making 61-year-old female with a past medical history of chronic back pain, laminectomy, discectomy, presents for exacerbation of her chronic pain. She states that she had a fall from a ladder 1 week ago, feet were approximately 2 feet off the ground. She denies any substantial injury from that fall, never did seek any medical attention. She was seen by her PCP on unrelated to her fall and did not even mention her fall because she was asymptomatic. Subsequently on Wednesday she was lifting furniture with a friend and felt the pain in her left lower back which radiated down her buttocks, now having tightness and spasming in her left lumbar region. She denies fever, other distracting injuries, abdominal pain, change in bowel or bladder function, numbness, tingling, weakness. Clinically she appears well, nontoxic, afebrile, neurologically intact, no midline point tenderness. Based upon the mechanism of injury, I believe the x-ray likely little value here in the ER. She did not drive here so cannot provide her any medications that may be sedating. Plan is to provide IM Toradol now and I will provide her a prescription for Flexeril, she is agreeable to this plan. Upon discharge she reports some improvement of her discomfort and is ambulating steadily without difficulty. Standard discharge and return precautions were provided. Patient understands, is agreeable to this plan, and has no additional questions or concerns upon discharge. This documentation was generated using eyesFinderation system, please disregard any oddities of phrase or misspellings. Medical Records Medical records reviewed: Yes I reviewed the patient's medical records. HPI General Mode of arrival: ambulatory. Date/Time Provider Initiated Documentation: 09/21/21 13:15. Limitations to Documentation: no limitations. Information obtained by: patient. HPI Narrative: This is a 61-year-old female with a past medical history that includes chronic back pain, discectomy, laminectomy, TIA's, GERD, COPD, presenting to the ER for evaluation of left lower back pain. Patient states that 1 week ago she was standing on a ladder, her feet were approximately 2 feet off the ground, when she fell, twisting, then striking the ground. She states that she was sore all over but denies striking her head, LOC, neck pain, visual changes, etc. Patient reports that she actually saw her primary care provider on and felt well, had no specific pain from the fall, and did not even bring it up to her PCP. Subsequently on Wednesday she was helping a friend move furniture when she felt like she pulled her left lower back, pain does radiate down into her left buttocks. She states the area is now tight, stiff, and occasionally spasms. She denies any other trauma, recent illness, abdominal pain, fever, drug use, change in bowel or bladder function, numbness, tingling, weakness. Related Data Home Medications Medication Instructions Recorded Confirmed amitriptyline 50 mg tablet 50 mg PO QHS #90 tabs 05/08/21 09/21/21 sumatriptan succinate 50 mg tablet See Rx Instructions PO .COMPLEX 05/08/21 09/21/21 #60 tabs topiramate 25 mg tablet (Topamax) 25 mg PO DAILY #90 tabs 05/08/21 09/21/21 aspirin 325 mg tablet 325 mg PO DAILY 05/29/21 09/21/21 pantoprazole 40 mg tablet,delayed 40 mg PO BID #90 tabs 09/17/21 09/21/21 release (Protonix) sucralfate 1 gram tablet See Rx Instructions .Route 09/18/21 09/21/21 .COMPLEX #360 tabs cyclobenzaprine 10 mg tablet 10 mg PO TID PRN #10 tabs 09/21/21 Previous Rx's Medication Instructions Recorded amitriptyline 50 mg tablet 50 mg PO QHS #90 tabs 05/08/21 sumatriptan succinate 50 mg tablet See Rx Instructions PO .COMPLEX 05/08/21 #60 tabs topiramate 25 mg tablet (Topamax) 25 mg PO DAILY #90 tabs 05/08/21 pantoprazole 40 mg tablet,delayed 40 mg PO BID #90 tabs 09/17/21 release (Protonix) sucralfate 1 gram tablet See Rx Instructions .Route 09/18/21 .COMPLEX #360 tabs cyclobenzaprine 10 mg tablet 10 mg PO TID PRN #10 tabs 09/21/21 Allergies Allergy/AdvReac Type Severity Reaction Status Date / Time Opioids - Morphine Analogues AdvReac Intermediate nausea Verified 09/21/21 13:14 oxycodone [From [facility] ER] AdvReac Unknown Nausea, Verified 09/21/21 13:14 headache General Stated Complaint: Trauma KATHRINE: 3 Review of Systems Constitutional Constitutional: Denies fever(s) and Denies weakness ENT Ears, Nose, Mouth, and Throat: Denies neck pain Cardiovascular Cardiovascular: Denies chest pain and Denies dyspnea Respiratory Respiratory: Denies dyspnea Gastrointestinal Gastrointestinal: Denies abdominal pain, Denies nausea and Denies vomiting Genitourinary Genitourinary: Denies hematuria and Denies dysuria Musculoskeletal Musculoskeletal: Reports back pain, Denies neck pain, Denies numbness and Denies tingling Integumentary/Breasts Skin/Breast: Denies rash Neurologic Neurologic: Denies numbness, Denies tingling and Denies weakness PFSH All Active Problems (Updated 09/21/21 @ 14:11 by BOOM Martinez) Back pain (Acute) Onycholysis (Acute) Prediabetes (Acute) Chemical gastritis (Acute) Arterial atherosclerosis (Acute) 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 For low risk patient, no routine follow-up is recommended. For high risk patients, (history of smoking or other known risk fractures) optional CT scan of the chest at 12 months should be considered. Chronic pain (Chronic) Spine & RSD RUE; long-term hydrocodone-apap since 2015; s/p multiple lumbar spine surgeries; +DIsability History of nicotine use (Chronic) 30 pack years; quit 2001 Trochanteric bursitis (Acute) Lumbar radiculopathy (Acute) Facet syndrome, lumbar (Acute) Opioid dependence (Acute) Clean for 2 months on 09/05/20 Cannabis dependence (Acute) daily use Tinea pedis (Acute) Muscle cramp (Acute) Chest pain (Acute) URI (upper respiratory infection) (Acute) Swallowing difficulty (Acute) Medical History Knee pain s/p meniscal surgery ([place]) Leg pain Low blood pressure Prolapsed cervical intervertebral disc Right lower quadrant abdominal pain Surgical History H/O discectomy (~2006) H/O laminectomy H/O lumbosacral spine surgery x2 History of esophagogastroduodenoscopy (EGD) (~03/18/21) History of hysterectomy (~02/22/95) for menorrhagia History of right cataract surgery History of right-sided carotid endarterectomy (~12/23/16) s/p x2 TIAs F/U with PCP at [facility] Hx of elbow surgery chronic tennis elbow Hx of right knee surgery meniscal repair S/P carpal tunnel release (~02/22/03) R Family History Father , 76yo lung cancer Cancer Lung Heart disease Hypertension Sister , 44yo lung cancer Cancer all organs Mother , 84yo dementia Dementia Sister No problems noted. Sister No problems noted. Brother No problems noted. Social History Smoking/Tobacco Use Status: Former Tobacco Use tobacco type: cigarettes Quit Date: 02/22/01 Tobacco: How many years used: 30 Second Hand Exposure: Yes Smoking risk assessment performed?: Yes Alcohol Intake: never Drug use: Daily Substance use type: marijuana Adopted: No Caregiver/Support person: No Foster care: No Household members: none Do you need help understanding health information?: Never Pets and animals: Yes Sexually active: Yes Do you think of yourself as: straight/heterosexual Current gender identity: female What is your relationship status?: How often do you talk on the phone with friends or family?: three or more times per week How often do you get together with friends or relatives?: twice per week How often do you attend jainism or lutheran services?: decline to answer Do you belong to any clubs or organized social groups?: no Panel score (0-1 are the most socially isolated patients): 1 What type of physical activity do you participate in: walking Duration: 30-45 minutes/day Frequency: 3-4 times per week Paola/Mandaeism: No preference Special paola needs: No Agree to transfusion: No Seatbelt use: always Helmet use: No Drive intox or ride w/intox class a truck driver: No Do you feel safe at home: Yes Do you feel safe in your relationship?: Yes Additional Social history: lives alone Exam Const General: cooperative, healthy appearing, comfortable and no acute distress Orientation: alert and awake [facility] Head: normal to inspection, normocephalic and atraumatic Eyes General: appearance normal, both eyes and all related structures Conjunctivae: conjunctivae normal Neck Neck: normal visual inspection, full ROM, trachea midline, supple and nontender Chest Chest: normal inspection of the chest and normal palpation of entire chest wall Resp Effort & Inspection: normal respiratory effort and able to speak in complete sentences Auscultation: clear to auscultation bilaterally Cardio Rate: regular rate Rhythm: regular rhythm GI Palpation: soft, not firm, no guarding, no pulsatile masses and nontender Back/Spine/Pelvis Back: no CVA tenderness and back tenderness (Diffuse left lower lumbar region, mild paravertebral spasm) Thoracic/Lumbar Spine: straight leg raise positive (Left 15 degrees) Pelvis: no pain with anterior-posterior compression and no pain with lateral compression Skin General skin exam: no rashes or lesions noted Neuro General: patient alert, patient awake, moves all extremities and no focal motor deficits Cognition: normal cognition Speech: speech normal Gait: normal gait Motor: muscle tone normal throughout Sensory Exam: no sensory deficits noted Extrem General: normal to inspection, full ROM and capillary refill normal Psych Appearance: grossly normal Mental Status: mental status grossly normal Course Vital Signs Vital signs: Vital Signs Temperature 36.7 C 09/21/21 13:10 Pulse 94 H 09/21/21 13:10 Respiratory Rate 18 09/21/21 13:10 Blood Pressure 130/73 09/21/21 13:10 Pulse Oximetry 98 09/21/21 13:10 Temperature 36.7 C 09/21/21 13:10 Temperature Source Temporal Artery Scan 09/21/21 13:10 Pulse 94 H 09/21/21 13:10 Respiratory Rate 18 09/21/21 13:10 Respiratory Effort Non-Labored 09/21/21 13:14 Blood Pressure 130/73 09/21/21 13:10 Blood Pressure Position Sitting 09/21/21 13:10 Pulse Oximetry 98 09/21/21 13:10 Oxygen Delivery Method Room Air 09/21/21 13:10 Oxygen Flow Rate 0 09/21/21 13:10
[2021-09-21] MEDS: Ketorolac 60 MG/2 ML VIAL IM (13:58)
[2021-09-21 14:40] VITALS: BP 130/79; PULSE 85; RESP 18; TEMP 36.8; O2SAT 97
== END 2021-09-21 14:42 | disposition home or self-care (01) ==
PROVIDERS: Emergency Provider Physician Assistant; PCP Nurse Practitioner Family
DX: M54.50 Low back pain, unspecified (principal); X50.0XXA Overexertion from strenuous movement or load, initial encounter
CPT/HCPCS: 96372; 99284; 99283; J1885

== ENCOUNTER → 2021-12-22 12:16 | Outpatient (CLI) | payer MEDICARE, MEDICAID, SELFPAY ==
--- NOTE | 2021-12-22 12:00 | DI.MRI_ITS ---
Exam(s) MR LUMBAR SPINE WO EXAM: MR LUMBAR SPINE WO CLINICAL HISTORY: Fall with injury to lumbar/sacral area,spondylosis w/o myelopathy,[id number]. TECHNIQUE: Multiplanar multisequence MRI of the Lumbar spine was performed. COMPARISON: CT CT RENAL COLIC WO from 04/01/2021 XR PAIN CLINIC LUMBAR SP 2V from 05/29/2021 FINDINGS: Bones: The last intervertebral disc space is designated the L5/S1 level for the numbering purpose of this examination. The vertebral body heights are well maintained. Alignment is satisfactory. The ma rrow signal characteristics are unremarkable. Posterior fusion hardware is noted extending from L3 through S1. Laminectomy defects are noted from L3 through L5. Disc spacers are seen at L4-5 and L5- S1. Cord: The conus tip ends at the T12 level. It is of normal size and signal intensity. T12-L1: No disc herniations or bulges are present. No central spinal canal or neural foraminal stenos is. L1-2: No disc herniations or bulges are present. No central spinal canal or neural foraminal stenosis . L2-3: Mild disc bulging. No central spinal canal or neural foraminal stenosis. L3-4: Moderate loss of disc height. Minimal disc osteophytes. There is artifact at the neural berto en related to the hardware. There may be mild bilateral neural foraminal narrowing. No central indira l stenosis. L4-5: The disc spacer is present. No central spinal canal or neural foraminal stenosis. L5-S1: A disc spacer is present.. No central spinal canal or neural foraminal stenosis. The visualized SI joints and sacrum are well maintained. Soft tissues: The paraspinal soft tissues are unremarkable. IMPRESSION: Posterior fusion from L4 through S1. Mild disc bulging at L2-3. Question of mild bilateral neural f oraminal narrowing versus artifact at L3-4. No evidence of significant spinal stenosis . DATA REPOSITORY:
== END ==
PROVIDERS: PCP Nurse Practitioner Family; Visit Provider Nurse Practitioner Family
DX: M47.817 Spondylosis without myelopathy or radiculopathy, lumbosacral region (principal); Z98.1 Arthrodesis status; M51.26 Other intervertebral disc displacement, lumbar region; Z91.81 History of falling
CPT/HCPCS: 72148

== ENCOUNTER 2022-02-15 17:07 | Emergency (ER) | payer MEDICARE, MEDICAID, SELFPAY ==
--- NOTE | 2022-02-15 17:16 | W.ED.GENAD ---
Discharge Plan Disposition Patient Disposition: Home Condition: Improving Discharge Details Clinical Impression: Laceration of left hand Primary Care Provider: Maximus Leiva ED Provider: Son Hanley Home Meds and New Rx's Prescriptions: Continued sucralfate 1 gram tablet See Rx Instructions .ROUTE .COMPLEX Qty: 360 4RF Dose Instruction: TAKE 1 TABLET BY MOUTH BEFORE MEALS AND AT BEDTIME Rx Instructions: TAKE 1 TABLET BY MOUTH BEFORE MEALS AND AT BEDTIME topiramate [Topamax] 25 mg tablet 25 mg PO DAILY Qty: 90 3RF sumatriptan succinate 50 mg tablet See Rx Instructions PO .COMPLEX Qty: 60 0RF Rx Instructions: take 1 tab at onset of headache; if no relief may repeat 1 tab after at least 2 hrs; max = 4 tabs/24 hr PO amitriptyline 50 mg tablet 50 mg PO QHS Qty: 90 4RF pantoprazole [Protonix] 40 mg tablet,delayed release (DR/EC) 40 mg PO BID Qty: 90 12RF ibuprofen 800 mg tablet 800 mg PO Q8H PRN (Reason: pain) Qty: 60 0RF aspirin [Adult Aspirin Regimen] 81 mg tablet,delayed release (DR/EC) 81 mg PO DAILY Qty: 90 3RF Discharge Instructions Instructions: Laceration (ED) Additional Instructions: Keep the area clean and dry, change antibiotic dressing daily. [id number] Tylenol and/or Motrin as directed for discomfort. Please watch for new or worsening symptoms and return to the ER for any concerns. Sutures removed in 7-10 days. Medical Decision Making 61-year-old female, [id number], tetanus status up-to-date, lacerated her left hand with a clean knife, it did not break, about 30 minutes ago. Denies numbness, tingling, weakness. Clinically she appears well, nontoxic. Neuro, vascular, tendon intact. Laceration will need repair. Please see procedural note Laceration then appropriately dressed. Standard discharge and return precautions were provided. Patient understands, is agreeable to this plan, and has no additional questions or concerns upon discharge. This documentation was generated using Flared[employer]Dation system, please disregard any oddities of phrase or misspellings. Medical Records Medical records reviewed: Yes I reviewed the patient's medical records. HPI General Mode of arrival: ambulatory. Date/Time Provider Initiated Documentation: 02/15/22 17:15. Limitations to Documentation: no limitations. Information obtained by: patient. History of Present Illness 61 year old F presents to the emergency department with the chief complaint of L hand lac, described as mild, with intensity rated at 2. Quality is described as aching, and is localized to the left and upper extremity. Patient reports no radiation. Patient started experiencing this minute(s) (30) and it has been constant. No relieving factors improve symptom(s), No exacerbating factors reported . Patient notes no other symptoms.. Patient did receive the following treatments prior to arrival, none Related Data Home Medications Medication Instructions Recorded Confirmed amitriptyline 50 mg tablet 50 mg PO QHS #90 tabs 05/08/21 02/15/22 sumatriptan succinate 50 mg tablet See Rx Instructions PO .COMPLEX 05/08/21 02/15/22 #60 tabs topiramate 25 mg tablet (Topamax) 25 mg PO DAILY #90 tabs 05/08/21 02/15/22 pantoprazole 40 mg tablet,delayed 40 mg PO BID #90 tabs 09/17/21 02/15/22 release (Protonix) sucralfate 1 gram tablet See Rx Instructions .Route 09/18/21 02/15/22 .COMPLEX #360 tabs ibuprofen 800 mg tablet 800 mg PO Q8H PRN pain #60 tabs 01/01/22 02/15/22 aspirin 81 mg tablet,delayed 81 mg PO DAILY #90 tabs 01/08/22 02/15/22 release (Adult Aspirin Regimen) Previous Rx's Medication Instructions Recorded amitriptyline 50 mg tablet 50 mg PO QHS #90 tabs 05/08/21 sumatriptan succinate 50 mg tablet See Rx Instructions PO .COMPLEX 05/08/21 #60 tabs topiramate 25 mg tablet (Topamax) 25 mg PO DAILY #90 tabs 05/08/21 pantoprazole 40 mg tablet,delayed 40 mg PO BID #90 tabs 09/17/21 release (Protonix) sucralfate 1 gram tablet See Rx Instructions .Route 09/18/21 .COMPLEX #360 tabs ibuprofen 800 mg tablet 800 mg PO Q8H PRN pain #60 tabs 01/01/22 aspirin 81 mg tablet,delayed 81 mg PO DAILY #90 tabs 01/08/22 release (Adult Aspirin Regimen) Allergies Allergy/AdvReac Type Severity Reaction Status Date / Time Opioids - Morphine Analogues AdvReac Intermediate nausea Verified 02/15/22 17:28 oxycodone [From Xtampza ER] AdvReac Unknown Nausea, Verified 02/15/22 17:28 headache General KATHRINE: 3 Review of Systems Constitutional Constitutional: Denies weakness Musculoskeletal Musculoskeletal: Denies arthralgias, Denies numbness, Denies stiffness and Denies tingling Integumentary/Breasts Skin/Breast: Denies erythema Neurologic Neurologic: Denies numbness, Denies tingling and Denies weakness PFSH All Active Problems (Updated 02/15/22 @ 17:34 by BOOM Martinez) Laceration of left hand (Acute) Onycholysis (Acute) Prediabetes (Acute) Chemical gastritis (Acute) Arterial atherosclerosis (Acute) 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 For low risk patient, no routine follow-up is recommended. For high risk patients, (history of smoking or other known risk fractures) optional CT scan of the chest at 12 months should be considered. Chronic pain (Chronic) Spine & RSD RUE; long-term hydrocodone-apap since 2015; s/p multiple lumbar spine surgeries; +DIsability History of nicotine use (Chronic) 30 pack years; quit 2001 Trochanteric bursitis (Acute) Lumbar radiculopathy (Acute) Facet syndrome, lumbar (Acute) Opioid dependence (Acute) Clean for 2 months on 09/05/20 Cannabis dependence (Acute) daily use Swallowing difficulty (Acute) Medical History Knee pain s/p [place]cal surgery ([place]) Leg pain Low blood pressure Prolapsed cervical intervertebral disc Right lower quadrant abdominal pain Surgical History H/O discectomy (~2006) H/O laminectomy H/O lumbosacral spine surgery x2 History of esophagogastroduodenoscopy (EGD) (~03/18/21) History of hysterectomy (~02/22/95) for menorrhagia History of right cataract surgery History of right-sided carotid endarterectomy (~12/23/16) s/p x2 TIAs F/U with PCP at [facility] Hx of elbow surgery chronic tennis elbow Hx of right knee surgery meniscal repair S/P carpal tunnel release (~02/22/03) R Family History Father , 76yo lung cancer Cancer Lung Heart disease Hypertension Sister , 44yo lung cancer Cancer all organs Mother , 84yo dementia Dementia Sister No problems noted. Sister No problems noted. Brother No problems noted. Social History Smoking/Tobacco Use Status: Former Tobacco Use tobacco type: cigarettes Quit Date: 02/22/01 Tobacco: How many years used: 30 Second Hand Exposure: Yes Smoking risk assessment performed?: Yes Alcohol Intake: never Drug use: Daily Substance use type: marijuana Adopted: No Caregiver/Support person: No Foster care: No Household members: none Communication Needs: None Do you need help understanding health information?: Never Pets and animals: Yes Pets and animals: cat(s) Sexually active: Yes Do you think of yourself as: straight/heterosexual Current gender identity: female What is your relationship status?: How often do you talk on the phone with friends or family?: three or more times per week How often do you get together with friends or relatives?: three or more times per week How often do you attend judaism or confucianist services?: decline to answer Do you belong to any clubs or organized social groups?: no Panel score (0-1 are the most socially isolated patients): 1 What type of physical activity do you participate in: none Paola/Adventist: None Special paola needs: No Agree to transfusion: No Seatbelt use: always Helmet use: No Drive intox or ride w/intox after school driver: No Do you feel safe at home: Yes Do you feel safe in your relationship?: Yes Additional Social history: lives alone Exam Const General: cooperative, healthy appearing, comfortable and no acute distress Orientation: alert and awake HENMT Head: normal to inspection, normocephalic and atraumatic Eyes Conjunctivae: conjunctivae normal Neck Neck: normal visual inspection, trachea midline and supple Resp Effort & Inspection: normal respiratory effort and able to speak in complete sentences Cardio Rate: regular rate Rhythm: regular rhythm Skin General skin exam: no rashes or lesions noted Neuro General: patient alert, patient awake, moves all extremities and no focal motor deficits Cognition: normal cognition Speech: speech normal Gait: normal gait Motor: muscle tone normal throughout Sensory Exam: no sensory deficits noted Extrem General: full ROM and capillary refill normal Hand/finger images: 1. Minimally tender well approximated 2.5 cm laceration. No foreign body. Bleeding controlled. Neuro, vascular, tendon intact. Normal radial pulse and capillary refill. Psych Appearance: grossly normal Mental Status: mental status grossly normal Procedures Laceration Laceration 1: Site: hand Side (If applicable): left Size (cm): 2.5 Description: linear and clean Depth: simple, single layer Local Anesthetic: Lidocaine 1% Amount of anesthesia used (mL): 4 Pre-repair: wound explored, irrigated extensively and deep structures intact Skin layer closed with: nylon Size (cm): 4-0 Number of sutures: 5 Technique: simple, interrupted
[2022-02-15 17:17] VITALS: BP 122/73; PULSE 98; RESP 18; TEMP 36.8; O2SAT 98
== END 2022-02-15 17:52 | disposition home or self-care (01) ==
PROVIDERS: Emergency Provider Physician Assistant; PCP Nurse Practitioner Family
DX: S61.412A Laceration without foreign body of left hand, initial encounter (principal); W26.0XXA Contact with knife, initial encounter
CPT/HCPCS: 12001

== ENCOUNTER 2022-02-20 12:46 | Emergency (ER) | payer MEDICARE, MEDICAID, SELFPAY ==
[2022-02-20 12:50] VITALS: BP 133/84; PULSE 93; RESP 18; TEMP 36.9; O2SAT 97
--- NOTE | 2022-02-20 13:30 | DI.US_ITS ---
Exam(s) US LOWER EXTREMITY VENOUS RT EXAM: US LOWER EXTREMITY VENOUS RT CLINICAL HISTORY: knee and calf pain, leg swelling. TECHNIQUE: Lower extremity venous ultrasound performed using grayscale, color-flow, and spectral Do ppler analysis. COMPARISON: No exams were available for comparison FINDINGS: The common femoral, femoral and popliteal veins demonstrate normal compressibility, augmentation, and color Doppler. The posterior tibial veins are patent. No saphenous vein thrombosis or other superfi cial venous thrombosis is seen. No hematoma or Arana's cyst is seen. IMPRESSION: Negative lower extremity ultrasound. No evidence of DVT. DATA REPOSITORY:
--- NOTE | 2022-02-20 13:30 | DI.RAD_ITS ---
Exam(s) XR KNEE RT 3V AP,LAT,GALINDO EXAM: XR KNEE RT 3V AP,LAT,GALINDO CLINICAL HISTORY: twisted knee, mild effusion. TECHNIQUE: 2D digital imaging was performed. Three views. COMPARISON: No exams were available for comparison FINDINGS: BONES: No acute fracture is present. No bony destructive lesion is seen. JOINTS: There are degenerative changes at the patellofemoral joint. There is a small enthesophyte at the quadriceps insertion. There is spurring at the tibial spines. The knee is normally aligned. A small joint effusion is seen. SOFT TISSUE: Normal. IMPRESSION: Degenerative changes. No acute abnormality. DATA REPOSITORY: RADIATION DOSE DELIVERED:
--- NOTE | 2022-02-20 13:41 | W.ED.GENAD ---
Discharge Plan Disposition Patient Disposition: Home Condition: Improving Discharge Details Chief Complaint: Orthopedic Clinical Impression: Knee pain Primary Care Provider: Maximus Leiva ED Provider: Devaughn Kerr Home Meds and New Rx's Prescriptions: No Action sucralfate 1 gram tablet See Rx Instructions .ROUTE .COMPLEX Qty: 360 4RF Dose Instruction: TAKE 1 TABLET BY MOUTH BEFORE MEALS AND AT BEDTIME Rx Instructions: TAKE 1 TABLET BY MOUTH BEFORE MEALS AND AT BEDTIME topiramate [Topamax] 25 mg tablet 25 mg PO DAILY Qty: 90 3RF sumatriptan succinate 50 mg tablet See Rx Instructions PO .COMPLEX Qty: 60 0RF Rx Instructions: take 1 tab at onset of headache; if no relief may repeat 1 tab after at least 2 hrs; max = 4 tabs/24 hr PO amitriptyline 50 mg tablet 50 mg PO QHS Qty: 90 4RF pantoprazole [Protonix] 40 mg tablet,delayed release (DR/EC) 40 mg PO BID Qty: 90 12RF ibuprofen 800 mg tablet 800 mg PO Q8H PRN (Reason: pain) Qty: 60 0RF aspirin [Adult Aspirin Regimen] 81 mg tablet,delayed release (DR/EC) 81 mg PO DAILY Qty: 90 3RF Discharge Instructions Instructions: Knee Pain (ED) Additional Instructions: Please follow-up with your primary care physician. Please follow-up with orthopedic surgery as scheduled. Ice elevate and use ibuprofen and/or acetaminophen for pain and swelling. Medical Decision Making 61-year-old female history of prior TIA, endarterectomy, presents with knee pain over the past 2 months, traumatic event likely misstep off of stepstool, followed by twisting of the knee 2 days ago, patient has mild effusion to right knee, flexion extension intact warm well perfused sensate extremity, ambulatory without assistance. Does have some discomfort in the popliteal fossa without palpable cord. No laxity to joint. Likely ligamentous injury versus muscle strain low suspicion for ACL or PCL tear lower suspicion for DVT no evidence of septic joint; will obtain x-ray and ultrasound right lower extremity. Will provide analgesia anti-inflammatory in the form of dexamethasone and acetaminophen 14: 57 patient resting comfortably no acute distress negative for fracture dislocation or DVT. Home care instructions and return precautions. Will be given orthopedic referral HPI General Date/Time Provider Initiated Documentation: 02/20/22 13:38. HPI Narrative: 61-year-old female presents with 2 months of right knee discomfort, stepped wrong off a stepladder in November acute pain to right knee, believes she may have twisted her knee within the past 2 days, pain worse at night. Does radiate to calf region. History of TIA and endarterectomy in the past. No exogenous estrogen use. Related Data Home Medications Medication Instructions Recorded Confirmed amitriptyline 50 mg tablet 50 mg PO QHS #90 tabs 05/08/21 02/20/22 sumatriptan succinate 50 mg tablet See Rx Instructions PO .COMPLEX 05/08/21 02/20/22 #60 tabs topiramate 25 mg tablet (Topamax) 25 mg PO DAILY #90 tabs 05/08/21 02/20/22 pantoprazole 40 mg tablet,delayed 40 mg PO BID #90 tabs 09/17/21 02/20/22 release (Protonix) sucralfate 1 gram tablet See Rx Instructions .Route 09/18/21 02/20/22 .COMPLEX #360 tabs ibuprofen 800 mg tablet 800 mg PO Q8H PRN pain #60 tabs 01/01/22 02/20/22 aspirin 81 mg tablet,delayed 81 mg PO DAILY #90 tabs 01/08/22 02/20/22 release (Adult Aspirin Regimen) Previous Rx's Medication Instructions Recorded amitriptyline 50 mg tablet 50 mg PO QHS #90 tabs 05/08/21 sumatriptan succinate 50 mg tablet See Rx Instructions PO .COMPLEX 05/08/21 #60 tabs topiramate 25 mg tablet (Topamax) 25 mg PO DAILY #90 tabs 05/08/21 pantoprazole 40 mg tablet,delayed 40 mg PO BID #90 tabs 09/17/21 release (Protonix) sucralfate 1 gram tablet See Rx Instructions .Route 09/18/21 .COMPLEX #360 tabs ibuprofen 800 mg tablet 800 mg PO Q8H PRN pain #60 tabs 01/01/22 aspirin 81 mg tablet,delayed 81 mg PO DAILY #90 tabs 01/08/22 release (Adult Aspirin Regimen) Allergies Allergy/AdvReac Type Severity Reaction Status Date / Time Opioids - Morphine Analogues AdvReac Intermediate nausea Verified 02/15/22 17:28 oxycodone [From Xtampza ER] AdvReac Unknown Nausea, Verified 02/15/22 17:28 headache General Stated Complaint: Orthopedic KATHRINE: 4 Review of Systems Narrative: Review of Systems Constitutional: negative Eyes: negative ENT: negative Cardiovascular: negative Respiratory: negative Gastrointestinal: negative : negative Musculoskeletal: Knee pain Skin: negative Neurologic: negative Psych: negative PFSH All Active Problems (Updated 02/20/22 @ 14:58 by Devaughn Kerr MD) Laceration of left hand (Acute) Knee pain (Acute) Onycholysis (Acute) Prediabetes (Acute) Chemical gastritis (Acute) Arterial atherosclerosis (Acute) 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 For low risk patient, no routine follow-up is recommended. For high risk patients, (history of smoking or other known risk fractures) optional CT scan of the chest at 12 months should be considered. Chronic pain (Chronic) Spine & RSD RUE; long-term hydrocodone-apap since 2015; s/p multiple lumbar spine surgeries; +DIsability History of nicotine use (Chronic) 30 pack years; quit 2001 Trochanteric bursitis (Acute) Lumbar radiculopathy (Acute) Facet syndrome, lumbar (Acute) Opioid dependence (Acute) Clean for 2 months on 09/05/20 Cannabis dependence (Acute) daily use Swallowing difficulty (Acute) Medical History K[place] pain s/[place] surgery ([place]) Leg pain Low blood pressure Prolapsed cervical intervertebral disc Right lower quadrant abdominal pain Surgical History H/O discectomy (~2006) H/O laminectomy H/O lumbosacral spine surgery x2 History of esophagogastroduodenoscopy (EGD) (~03/18/21) History of hysterectomy (~02/22/95) for menorrhagia History of right cataract surgery History of right-sided carotid endarterectomy (~12/23/16) s/p x2 TIAs F/U with PCP at [facility] Hx of elbow surgery chronic tennis elbow Hx of right knee surgery meniscal repair S/P carpal tunnel release (~02/22/03) R Family History Father , 76yo lung cancer Cancer Lung Heart disease Hypertension Sister , 44yo lung cancer Cancer all organs Mother , 84yo dementia Dementia Sister No problems noted. Sister No problems noted. Brother No problems noted. Social History Smoking/Tobacco Use Status: Former Tobacco Use tobacco type: cigarettes Quit Date: 02/22/01 Tobacco: How many years used: 30 Second Hand Exposure: Yes Smoking risk assessment performed?: Yes Alcohol Intake: never Drug use: Daily Substance use type: marijuana Adopted: No Caregiver/Support person: No Foster care: No Household members: none Communication Needs: None Do you need help understanding health information?: Never Pets and animals: Yes Pets and animals: cat(s) Sexually active: Yes Do you think of yourself as: straight/heterosexual Current gender identity: female What is your relationship status?: How often do you talk on the phone with friends or family?: three or more times per week How often do you get together with friends or relatives?: three or more times per week How often do you attend samaritan or zoroastrian services?: decline to answer Do you belong to any clubs or organized social groups?: no Panel score (0-1 are the most socially isolated patients): 1 What type of physical activity do you participate in: none Paola/Voodoo: None Special paola needs: No Agree to transfusion: No Seatbelt use: always Helmet use: No Drive intox or ride w/intox local driver: No Do you feel safe at home: Yes Do you feel safe in your relationship?: Yes Additional Social history: lives alone Exam Narrative Exam Narrative: Physical Examination General: alert, awake, cooperative, resting comfortably, no acute distress Skin: no lesions, rashes or trauma appreciated Neuro: AAOx3, normal speech, moving all extremities Extremities: Flexion extension of right knee intact, mild joint effusion, no erythema or induration, some discomfort in popliteal fossa without palpable cord, warm well perfused extremity; ambulatory without assistance Psych: Appropriate mood and affect Course Vital Signs Vital signs: Vital Signs Temperature 36.9 C 02/20/22 12:50 Pulse 93 H 02/20/22 12:50 Respiratory Rate 18 02/20/22 12:50 Blood Pressure 133/84 02/20/22 12:50 Pulse Oximetry 97 02/20/22 12:50 Temperature 36.9 C 02/20/22 12:50 Temperature Source Tympanic 02/20/22 12:50 Pulse 93 H 02/20/22 12:50 Respiratory Rate 18 02/20/22 12:50 Respiratory Effort 02/20/22 12:53 Blood Pressure 133/84 02/20/22 12:50 Blood Pressure Position Supine 02/20/22 12:50 Pulse Oximetry 97 02/20/22 12:50 Oxygen Delivery Method Room Air 02/20/22 12:50 Oxygen Flow Rate 0 02/20/22 12:50 Pain Level 7 02/20/22 12:50
[2022-02-20] MEDS: Dexamethasone 10 MG/ML VIAL IM (14:18)
[2022-02-20] MEDS: Acetaminophen 325 MG TAB 650 MG PO (14:18)
== END 2022-02-20 15:03 | disposition home or self-care (01) ==
PROVIDERS: Emergency Provider Emergency Medicine; PCP Nurse Practitioner Family
DX: G89.11 Acute pain due to trauma (principal); M25.462 Effusion, left knee; Z86.73 Personal history of transient ischemic attack (TIA), and cerebral infarction without residual deficits; X50.1XXA Overexertion from prolonged static or awkward postures, initial encounter
CPT/HCPCS: 73562; 96372; 99284; 93971; J1100

== ENCOUNTER 2022-03-05 02:48 | Outpatient (CLI) | payer MEDICARE, MEDICAID, SELFPAY ==
--- NOTE | 2022-03-05 07:56 | DI.MAMMO_ITS ---
Exam(s) MAMMO SCREENING EXAM: MAMMO SCREENING CLINICAL HISTORY: screening,z12.39 TECHNIQUE: Bilateral full field digital CC and MLO mammographic images were obtained with 3D tomosyn thesis and utilizing computer aided detection (CAD). COMPARISON: Available for comparison. FINDINGS: Masses/Architectural Distortion: None seen. Microcalcifications: No suspicious pleomorphic-type are seen. Skin Thickening/Nipple Retraction: None. IMPRESSION: 1. No significant interval change with no specific features of malignancy noted. 2. Unless there is more urgent need, screening mammography is recommended, as per [place] [employer] guidelines. BI-RADS Category 1 - Negative Breast Density - Category B - Scattered areas of fibroglandular density Breast density category C or D implies that the patient has dense breast tissue. Dense breast tissue is very common and is not abnormal but dense breast tissue can make it harder to find cancer on a ma mmogram. Also, dense breast tissue may increase their breast cancer risk. This information about the result of the mammogram report was provided to the patient to raise their awareness. Use this report when you speak with the patient about their risks for breast cancer, which includes their family hist ory. At that time, you may recommend for more screening tests (Ultrasound or MRI) as they might be us eful based on their risk. A negative radiographic report should not delay biopsy if a dominant or clinically suspicious mass is present. Up to ten percent of cancers are not identified on mammography. A negative report may reinforce clinical impression. Adenosis and dense breasts may obscure an underlying neoplasm. False positive reports average 6 to 10%. Patient will receive a letter notifying them of these results.
== END 2022-03-05 03:08 ==
LOC: DI 02:49
PROVIDERS: PCP Nurse Practitioner Family; Visit Provider Nurse Practitioner Family
DX: Z12.31 Encounter for screening mammogram for malignant neoplasm of breast (principal)
CPT/HCPCS: 77063; 77067

== ENCOUNTER 2022-03-11 14:34 | Outpatient (CLI) | payer MEDICARE, MEDICAID, SELFPAY ==
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
== END 2022-03-11 14:54 ==
PROVIDERS: PCP Nurse Practitioner Family; Visit Provider Nurse Practitioner Family
DX: S97.81XA Crushing injury of right foot, initial encounter (principal); M77.31 Calcaneal spur, right foot
CPT/HCPCS: 73610; 73630

== ENCOUNTER → 2022-03-23 10:45 | Outpatient (BNVA) | payer MEDICARE, MEDICAID, SELFPAY | PROVIDERS: PCP Nurse Practitioner Family; Referring Provider Student in an Organized Health Care Education/Training Program; Visit Provider Student in an Organized Health Care Education/Training Program | DX: M23.91 Unspecified internal derangement of right knee (principal) | CPT/HCPCS: 20610; 99213; J1040 ==

== ENCOUNTER 2022-06-30 01:46 | Outpatient (CLI) | payer MEDICARE, MEDICAID, SELFPAY ==
--- NOTE | 2022-06-30 07:30 | DI.MRI_ITS ---
Exam(s) MR LOWER JOINT RT WO EXAM: MR LOWER JOINT RT WO CLINICAL HISTORY: PAIN,internal derangement rt knee,m23.91 TECHNIQUE: Multiplanar multisequence MRI of the knee was performed. COMPARISON: CR XR KNEE RT 3V AP,LAT,GALINDO from 02/20/2022 FINDINGS: EFFUSION: There is a small-moderate size knee joint effusion. There is a small arana cyst in the pop liteal fossa. MARROW:There is subarticular bone edema in the lateral femoral condyle described below. No fractures evident. There are no significant osseous lesions. PATELLOFEMORAL COMPARTMENT: Quadriceps tendon intact. Some increased signal seen in the superior asp ect of the patellar tendon but no high-grade tear. No abnormal signal in the patella itself There is moderate-advanced narrowing of retropatellar cartilage over both facets. No abnormal intrao sseous signal in the posterior patella.There is no intraosseous signal to suggest recent patellar dis location. There are no patellar retinacular tears. CRUCIATE LIGAMENTS: The anterior cruciate ligament is intact.The posterior cruciate ligament is intac t. MEDIAL COMPARTMENT/MEDIAL MENISCUS: No evidence of obvious tears of the anterior/posterior horns of t he medial meniscus. There is a multi septated fluid collection intimately associated with the anteri or aspect of the posterior horn of the medial meniscus, this measuring 2.2 cm craniocaudal length, ex tending downward from behind the posterior horn of the medial meniscus. AP measurement is 8 millimet ers. Has the appearance of degenerative meniscal cyst but there does not appear to be an obvious men iscal tear at this level. However, there is moderate-advanced narrowing of the cartilage of the medi al femoral condyle main weight-bearing surface. No osteochondral defects seen but there are marginal osteophytes off the inner aspect the medial condyle. No abnormal signal in the subjacent tibial daina teau. MEDIAL COLLATERAL LIGAMENT: Intact LATERAL COMPARTMENT/LATERAL MENISCUS: There is no evidence of lateral meniscal tear.However, there is also significant cartilage thinning over the weight-bearing surface of the lateral condyle, more so posteriorly and there is subarticular edema in the posterior aspect of the weight-bearing surface of the lateral condyle. In addition, there are marginal osteophytes off the inner and outer aspect of t he lateral femoral condyle.No abnormal signal in the tibial plateau. ILIOTIBIAL BAND: Intact LATERAL COLLATERAL LIGAMENT COMPLEX: The fibular collateral ligament is intact. The biceps femoris t endon is intact.Popliteus muscle and tendon are intact. IMPRESSION: 1. The main findings here are degenerative cartilage changes in all 3 compartments as described above . There also marginal osteophytes in the femoral condyles as well as subarticular edema in the poste rior weight-bearing aspect of the lateral femoral condyle. There are no osteochondral defects. 2. There are no meniscal tears and no cruciate ligament tears 3. Collateral ligaments appear intact. 4. Small joint effusion and small Arana's cyst. No obvious loose intra-articular bodies. Other findings as above. DATA REPOSITORY:
== END 2022-06-30 02:06 ==
PROVIDERS: PCP Nurse Practitioner Family; Visit Provider Student in an Organized Health Care Education/Training Program
DX: M23.91 Unspecified internal derangement of right knee (principal)
CPT/HCPCS: 73721

== ENCOUNTER → 2022-07-13 15:21 | Outpatient (BNVA) | payer MEDICARE, MEDICAID, SELFPAY | PROVIDERS: PCP Nurse Practitioner Family; Referring Provider Nurse Practitioner Family; Visit Provider Student in an Organized Health Care Education/Training Program | DX: M23.91 Unspecified internal derangement of right knee (principal) | CPT/HCPCS: 20610; J7318 ==

== ENCOUNTER 2022-07-15 02:28 | Outpatient (CLI) | payer MEDICARE, MEDICAID, SELFPAY ==
--- NOTE | 2022-07-15 06:30 | DI.US_ITS ---
Exam(s) US CAROTID EXAM: US CAROTID CLINICAL HISTORY: H/O TIAS,F/U,ARTERIAL ATHEROSCLEROSIS,Z86.73,I70.8. TECHNIQUE: Ultrasound carotids performed using grayscale, color-flow, and spectral Doppler imaging. COMPARISON: US US LOWER EXTREMITY VENOUS RT from 02/20/2022 FINDINGS: RIGHT CAROTID ARTERY: Plaque: Minimal. Velocity elevation: End-diastolic velocity recorded in mid right ICA in the neck is 45 cm/sec, slight ly elevated. Indicates 50-69 percent stenosis LEFT CAROTID ARTERY: Plaque: There appears to be calcified and noncalcified plaque at carotid bulb proximal left ICA but n o elevated velocities indicating less than 50 percent stenosis. Velocity elevation: None. VERTEBRAL ARTERIES: Antegrade flow bilaterally. Measurements: R Bulb: 43.9cm/s PS / 15.4cm/s ED R CCA: 59.5cm/s PS / 16.7cm/s ED R ECA: 90.5cm/s PS / 21.2cm/s ED R ICA Prox: 84.1cm/s PS / 33.6cm/s ED R ICA Mid: 97cm/s PS / 45.2cm/s ED R ICA Distal: 88.7cm/s PS /35.8cm/s ED R Vert: 82.2cm/s PS / 22.7cm/s ED R SVR: 1.6 R DVR: 2.7 L Bulb: 50.4cm/s PS / 20.1cm/s ED L CCA: PS / 20.3cm/s ED L ECA: 90.5cm/s PS / 21.2cm/s ED L ICA Prox: 94.2cm/s PS / 35.8cm/s ED L ICA Mid: 96cm/s PS / 37.6cm/s ED L ICA Distal: 90cm/s PS / 37.4cm/s ED L Vert: 44.8cm/s PS / 11.8cm/s ED L SVR: 1.5 L DVR: 1.8 IMPRESSION: There appears to be some discordance between visual findings and velocities. There are no elevated v elocities at the left carotid bulb where there appears to be significant plaque. In addition, there are mild elevated velocities in the right internal carotid artery in the neck where there is no obvio us visible plaque. For this reason I recommend follow-up MR angiography or CT angiography. Antegrade flow was demonstrated in both vertebral arteries Criteria for Carotid Stenosis: Normal: ICA PSV <125 cm/s no plaque or intimal thickening is visible. <50% stenosis: ICA PSV <125 cm/s and plaque or intimal thickening is visible. 50-69% stenosis: ICA PSV is 125-250 cm/s and plaque is visible. >70% stenosis to near occlusion: ICA PSV >250 cm/s with visible plaque and luminal narrowing. DATA REPOSITORY:
== END 2022-07-15 02:48 ==
LOC: DI 02:29
PROVIDERS: PCP Nurse Practitioner Family; Visit Provider Nurse Practitioner Family
DX: I70.8 Atherosclerosis of other arteries (principal); Z86.73 Personal history of transient ischemic attack (TIA), and cerebral infarction without residual deficits
CPT/HCPCS: 93880

== ENCOUNTER 2022-07-28 18:28 | Emergency (ER) | payer MEDICARE, MEDICAID, SELFPAY ==
[2022-07-28 18:31] VITALS: BP 162/79; PULSE 85; RESP 18; TEMP 36.8; O2SAT 98
--- NOTE | 2022-07-28 20:12 | ED.GENADUL_ITS ---
Discharge Plan Disposition Patient Disposition: Home Discharge Details Clinical Impression: Migraine Primary Care Provider: Maximus Leiva ED Provider: Maru Hendricks Home Meds and New Rx's Prescriptions: Continued sucralfate 1 gram tablet See Rx Instructions .ROUTE .COMPLEX Qty: 360 4RF Dose Instruction: TAKE 1 TABLET BY MOUTH BEFORE MEALS AND AT BEDTIME Rx Instructions: TAKE 1 TABLET BY MOUTH BEFORE MEALS AND AT BEDTIME ibuprofen 800 mg tablet 800 mg PO Q8H PRN (Reason: pain) Qty: 60 0RF pantoprazole [Protonix] 40 mg tablet,delayed release (DR/EC) 40 mg PO BID Qty: 90 12RF aspirin [Adult Aspirin Regimen] 81 mg tablet,delayed release (DR/EC) 81 mg PO DAILY Qty: 90 3RF topiramate [Topamax] 25 mg tablet 25 mg PO DAILY Qty: 90 3RF simvastatin 20 mg tablet 20 mg PO QHS Qty: 90 3RF amitriptyline 50 mg tablet 50 mg PO QHS Qty: 90 4RF Discharge Instructions Instructions: General Headache (ED) Additional Instructions: Follow up with primary care provider in 3-5 days. Return to ED sooner if any worsening or concerns. Increase oral fluids. Please take Tylenol or Ibuprofen with food every 4-6 hours as needed for pain and swelling. Referrals: Maximus Leiva, [facility] [Primary Care Provider] - 5 days Medical Decision Making 62-year-old female presents to the ER with chief complaint of migraine which began this morning. Patient does have a history of migraines and reports that this feels like a typical migraine. Associated with nausea, photosensitivity and light sensitivity. No vomiting. Denies any recent head injuries. No fever or chills or any other associated symptoms. She does have a past medical history of carotid artery stenosis, hyperlipidemia, GERD, fibromyalgia, TIA, cannabis dependence, hiatal hernia, COPD. She reports she takes Topamax daily and took extra strength Tylenol prior to arrival with little to no relief. IV normal saline, Compazine, Toradol and Benadryl ordered. Will reevaluate. CT is not ordered at this time due to no history of trauma, no focal neurodeficits and pain typical of previous migraines. Patient reevaluation, she reports that her headache is improving. She is still receiving IV fluids. Plan is to discharge home. This text was generated using [employer] system, please disregard any oddities of phrase or misspellings. HPI General Mode of arrival: ambulatory . Date/Time Provider Initiated Documentation: 07/28/22 19:17 . Limitations to Documentation: no limitations . Information obtained by: patient, RN notes reviewed and old records reviewed . HPI Narrative: 62-year-old female presents to the ER with chief complaint of migraine which began this morning. Patient does have a history of migraines and reports that this feels like a typical migraine. Associated with nausea, photosensitivity and light sensitivity. No vomiting. Denies any recent head injuries. No fever or chills or any other associated symptoms. She does have a past medical history of carotid artery stenosis, hyperlipidemia, GERD, fibromyalgia, TIA, cannabis dependence, hiatal hernia, COPD. She reports she takes Topamax daily and took extra strength Tylenol prior to arrival with little to no relief. Related Data Home Medications Medication Instructions Recorded Confirmed pantoprazole 40 mg tablet,delayed 40 mg PO BID #90 tabs 09/17/21 07/28/22 release (Protonix) sucralfate 1 gram tablet See Rx Instructions .Route 09/18/21 07/28/22 .COMPLEX #360 tabs aspirin 81 mg tablet,delayed 81 mg PO DAILY #90 tabs 01/08/22 07/28/22 release (Adult Aspirin Regimen) ibuprofen 800 mg tablet 800 mg PO Q8H PRN pain #60 tabs 03/11/22 07/28/22 topiramate 25 mg tablet (Topamax) 25 mg PO DAILY #90 tabs 04/22/22 07/28/22 simvastatin 20 mg tablet 20 mg PO QHS #90 tabs 07/17/22 07/28/22 amitriptyline 50 mg tablet 50 mg PO QHS #90 tabs 07/22/22 07/28/22 Previous Rx's Medication Instructions Recorded pantoprazole 40 mg tablet,delayed 40 mg PO BID #90 tabs 09/17/21 release (Protonix) sucralfate 1 gram tablet See Rx Instructions .Route 09/18/21 .COMPLEX #360 tabs aspirin 81 mg tablet,delayed 81 mg PO DAILY #90 tabs 01/08/22 release (Adult Aspirin Regimen) ibuprofen 800 mg tablet 800 mg PO Q8H PRN pain #60 tabs 03/11/22 topiramate 25 mg tablet (Topamax) 25 mg PO DAILY #90 tabs 04/22/22 simvastatin 20 mg tablet 20 mg PO QHS #90 tabs 07/17/22 amitriptyline 50 mg tablet 50 mg PO QHS #90 tabs 07/22/22 Allergies Allergy/AdvReac Type Severity Reaction Status Date / Time Opioids - Morphine Analogues AdvReac Intermediate nausea Verified 07/28/22 18:33 oxycodone [From [facility] ER] AdvReac Unknown Nausea, Verified 07/28/22 18:33 headache General Stated Complaint: Headache KATHRINE: 3 Review of Systems All systems reviewed & are unremarkable except as noted in HPI and below Constitutional Constitutional: Reports headache(s) and Denies weakness ENT Ears, Nose, Mouth, and Throat: Denies dizziness and Reports headache(s) Musculoskeletal Musculoskeletal: Denies numbness Neurologic Neurologic: Denies confusion, Denies dizziness, Reports headache(s), Denies numbness and Denies weakness Psychiatric Psychiatric: Denies confusion PFSH All Active Problems (Updated 07/28/22 @ 21:55 by Maru Hendricks NP) Bilateral carotid artery stenosis (Acute) Internal derangement of right knee (Acute) DUROLANE 07/13/22 Reflex sympathetic dystrophy of the arm (Chronic) RSD RUE--on disability Hyperlipidemia (Acute) PVD s/p endarderectomy; on statin Degeneration of intervertebral disc of lumbosacral region (Acute) Lumbar spinal stenosis (Chronic ~05/27/18) Depressive disorder (Chronic) Fibromyalgia (Chronic) GERD (gastroesophageal reflux disease) (Chronic) Omeprazole; EGD many years ago; never used H2 krystina Migraine (Chronic) RX Topamax; breakthrough is rest & dark room (couple times per year) Body mass index (BMI) of 30.0 to 30.9 in adult (Acute) Pulmonary nodules (Acute) CT 04/2020: Tiny subpleural nodules in the lungs. For low risk patient, no routine follow-up is recommended. For high risk patients, (history of smoking or other known risk fractures) optional CT scan of the chest at 12 months should be considered. Chronic pain (Chronic) Spine & RSD RUE; long-term hydrocodone-apap since 2015; s/p multiple lumbar spine surgeries; +DIsability History of nicotine use (Chronic) 30 pack years; quit 2001 Trochanteric bursitis (Acute) Lumbar radiculopathy (Acute) Facet syndrome, lumbar (Acute) Opioid dependence (Acute) Clean for 2 months on 09/05/20 Cannabis dependence (Acute) daily use Swallowing difficulty (Acute) Hiatal hernia with GERD (Acute) Erosive esophagitis (Acute) Bile reflux gastritis (Acute) Lumbosacral spondylosis without myelopathy (Acute) Shortness of breath (Acute) COPD (chronic obstructive pulmonary disease) (Chronic) 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 repeat 2024 Arterial atherosclerosis (Acute) Chemical gastritis (Acute) Prediabetes (Acute) Onycholysis (Acute) Medical History Knee pain s/p [place]iscal surgery ([place]) Leg pain Low blood pressure Prolapsed cervical intervertebral disc Right lower quadrant abdominal pain Surgical History H/O discectomy (~2006) H/O laminectomy H/O lumbosacral spine surgery x2 History of esophagogastroduodenoscopy (EGD) (~03/18/21) History of hysterectomy (~02/22/95) for menorrhagia History of right cataract surgery History of right-sided carotid endarterectomy (~12/23/16) s/p x2 TIAs F/U with PCP at [facility] Hx of elbow surgery chronic tennis elbow Hx of right knee surgery meniscal repair S/P carpal tunnel release (~02/22/03) R Family History Father , 76yo lung cancer Cancer Lung Heart disease Hypertension Sister , 44yo lung cancer Cancer all organs Mother , 84yo dementia Dementia Sister No problems noted. Sister No problems noted. Brother No problems noted. Social History Smoking/Tobacco Use Status: Former Tobacco Use tobacco type: cigarettes Quit Date: 02/22/01 Tobacco: How many years used: 30 Second Hand Exposure: Yes Smoking risk assessment performed?: Yes Alcohol Intake: never Drug use: Daily Substance use type: marijuana Adopted: No Caregiver/Support person: No Foster care: No Household members: none Communication Needs: None Do you need help understanding health information?: Never Pets and animals: Yes Pets and animals: cat(s) Sexually active: Yes Do you think of yourself as: straight/heterosexual Current gender identity: female What is your relationship status?: How often do you talk on the phone with friends or family?: three or more times per week How often do you get together with friends or relatives?: three or more times per week How often do you attend religion or yarsani services?: decline to answer Do you belong to any clubs or organized social groups?: no Panel score (0-1 are the most socially isolated patients): 1 What type of physical activity do you participate in: none Paola/Yarsanism: None Special paola needs: No Agree to transfusion: No Seatbelt use: always Helmet use: No Drive intox or ride w/intox newspaper delivery driver: No Do you feel safe at home: Yes Do you feel safe in your relationship?: Yes Additional Social history: lives alone Exam Narrative Exam Narrative: Constitutional: Alert and oriented x3. Appears stated age. Normal body habitus. Head: Normocephalic, no trauma. Eyes: Pupils PERRL, Red reflex noted, EOM's intact. Eyelids symmetrical without lesions, discharge, or swelling. ENT: Bilateral TM's WNL, External ear normal to inspection, no mastoid TTP, swelling, or erythema, Nasal turbinates WNL, no nasal discharge. Normal dentition, Posterior pharynx WNL, no exudate. Chest: RRR, Normal S1, S2, distal pulses intact. Resp: Lungs clear to auscultation bilaterally, no wheezes, rales, or rhonchi. Abdomen: Soft, non-distended, Normoactive bowel sounds all 4 quads. Musculoskeletal: Normal gait, 5/5 strength to all four extremities. Skin: No suspicious rashes or lesions. Capillary refill less than 2 sec. Neurologic: Cranial nerves II-XII intact. Alert and oriented x 3. Motor: No deficits noted. Sensory: Intact bilaterally all 4 extremities. Reflexes: DTR's intact bilaterally.. Hematologic/Lymphatic: No ecchymosis, no lymphadenopathy. Course Vital Signs Vital signs: Vital Signs Temperature 36.8 C 07/28/22 18:31 Pulse 85 07/28/22 18:31 Respiratory Rate 18 07/28/22 18:31 Blood Pressure 162/79 H 07/28/22 18:31 Pulse Oximetry 98 07/28/22 18:31 Temperature 36.8 C 07/28/22 18:31 Temperature Source Temporal Artery Scan 07/28/22 18:31 Pulse 85 07/28/22 18:31 Respiratory Rate 18 07/28/22 18:31 Respiratory Effort Normal, Non-Labored 07/28/22 18:32 Blood Pressure 162/79 H 07/28/22 18:31 Pulse Oximetry 98 07/28/22 18:31 Oxygen Delivery Method Room Air 07/28/22 18:31 Oxygen Flow Rate 0 07/28/22 18:31
[2022-07-28] MEDS: Prochlorperazine 10 MG/2 ML VIAL IVP (20:32)
[2022-07-28] MEDS: Normal Saline 1,000 ML 1000 ML IV (20:32)
[2022-07-28] MEDS: Ketorolac 30 MG/ML VIAL IVP (20:38)
[2022-07-28] MEDS: diphenhydrAMINE 50 MG/ML VIAL 25 MG IVP (20:40)
[2022-07-28 22:08] VITALS: BP 132/69; PULSE 80; RESP 16; O2SAT 99
== END 2022-07-28 22:10 | disposition home or self-care (01) ==
PROVIDERS: Emergency Provider Registered Nurse Emergency; PCP Nurse Practitioner Family
DX: G43.909 Migraine, unspecified, not intractable, without status migrainosus (principal)
CPT/HCPCS: 96361; 96374; 96375; 99284; J0780; J1200; J1885

== ENCOUNTER 2022-08-17 19:11 | Emergency (ER) | payer MEDICARE, MEDICAID, SELFPAY ==
--- NOTE | 2022-08-17 19:15 | DI.RAD_ITS ---
Exam(s) XR WRIST RT COMPLETE EXAM: XR WRIST RT COMPLETE CLINICAL HISTORY: Fell outside, R wrist pain and swelling. TECHNIQUE: 2D digital imaging was performed. Three views. COMPARISON: No exams were available for comparison FINDINGS: BONES: No acute fracture is present. No bony destructive lesion is seen. JOINTS: The carpal bones are normally aligned. SOFT TISSUE: Normal. IMPRESSION: Unremarkable radiographs of the right wrist. DATA REPOSITORY: RADIATION DOSE DELIVERED:
[2022-08-17 19:16] VITALS: BP 155/76; PULSE 100; RESP 18; TEMP 37.3; O2SAT 96
--- NOTE | 2022-08-17 20:25 | DI.VRAD_ITS ---
PROCEDURE INFORMATION: Exam: XR Right Wrist Exam date and time: 08/17/2022 7:48 PM Age: 62 years old Clinical indication: Other: Fell outside, R wrist pain and swelling TECHNIQUE: Imaging protocol: Radiologic exam of the right wrist. Views: 3 or more views. COMPARISON: No relevant prior studies available. FINDINGS: Bones/joints: No acute fracture or dislocation Soft tissues: Swelling noted. IMPRESSION: Swelling without discrete fracture Dictated and Authenticated by: Rafi Betancourt MD. Ordering:P.[facility] INSANESkye Provider Temporary MD
--- NOTE | 2022-08-17 20:31 | W.ED.GENAD ---
Discharge Plan Disposition Patient Disposition: Home Condition: Stable Discharge Details Clinical Impression: Right wrist sprain Primary Care Provider: Maximus Leiva ED Provider: Eduardo Sims Home Meds and New Rx's Prescriptions: Continued ibuprofen 800 mg tablet 800 mg PO Q8H PRN (Reason: pain) Qty: 60 0RF clotrimazole-betamethasone 1-0.05 % cream 1 applic topical BID 14 Days Qty: 15 0RF aspirin [Adult Aspirin Regimen] 81 mg tablet,delayed release (DR/EC) 81 mg PO DAILY Qty: 90 3RF topiramate [Topamax] 25 mg tablet 25 mg PO DAILY Qty: 90 3RF simvastatin 20 mg tablet 20 mg PO QHS Qty: 90 3RF amitriptyline 50 mg tablet 50 mg PO QHS Qty: 90 4RF sumatriptan succinate 50 mg tablet See Rx Instructions PO .COMPLEX Qty: 20 3RF Rx Instructions: take 1 tab at onset of headache; if no relief may repeat 1 tab after at least 2 hrs; max = 4 tabs/24 hr PO pantoprazole [Protonix] 40 mg tablet,delayed release (DR/EC) 40 mg PO BID Qty: 90 12RF Discharge Instructions Instructions: Wrist Sprain (ED) Additional Instructions: Your xray's did not show a broken bone wear the splint until you are pain free if you are still having pain in a week follow up with your primary care provider if you feel more ill or severe worsening pain return to the emergency department Medical Decision Making 62 yo female with hx of gerd, reflex sympathetic dystrophy of the arm who comes in with complaint of right wrist pain. She states earlier she started to run to avoid the rain and she slipped falling backwards onto her right wrist. Denies hitting head or loc. She has pain in the right wrist only, no pain in the head, neck , chest, abdomen, back, legs. She localizes the pain to the posterior and lateral wrist, no swelling and no visible or palpable deformity, she does have intact rom but has pain with this. She has intact sensation of the fingers and intact pulses. No tenderness in the elbow, shoulder, humerus or forearm. She had xrays of the wrist prior to my exam which on my read and vrad read are negative, do not feel additional imaging indicated. Will have her wear a universal splint and advised if pain continues in a week to see her pcp, return precautions given. Differential Diagnosis Differential Diagnosis: sprain, contusion, fracture Imaging Data Radiologic Study: Attestation: I personally reviewed and interpreted this imaging study as follows: Imaging: X-Ray Radiologist's impression: PROCEDURE INFORMATION: Exam: XR Right Wrist Exam date and time: 08/17/2022 7:48 PM Age: 62 years old Clinical indication: Other: Fell outside, R wrist pain and swelling TECHNIQUE: Imaging protocol: Radiologic exam of the right wrist. Views: 3 or more views. COMPARISON: No relevant prior studies available. FINDINGS: Bones/joints: No acute fracture or dislocation Soft tissues: Swelling noted. IMPRESSION: Swelling without discrete fracture HPI General Mode of arrival: ambulatory. Date/Time Provider Initiated Documentation: 08/17/22 20:08. Limitations to Documentation: no limitations. Information obtained by: patient. History of Present Illness 62 year old F presents to the emergency department with the chief complaint of right wrist pain, described as moderate, Quality is described as aching, Patient started experiencing this hour(s) (3) and it has been constant. Rest improves symptom(s), Movement worsens symptoms . Patient notes no other symptoms.. Related Data Home Medications Medication Instructions Recorded Confirmed aspirin 81 mg tablet,delayed 81 mg PO DAILY #90 tabs 01/08/22 08/17/22 release (Adult Aspirin Regimen) ibuprofen 800 mg tablet 800 mg PO Q8H PRN pain #60 tabs 03/11/22 08/17/22 topiramate 25 mg tablet (Topamax) 25 mg PO DAILY #90 tabs 04/22/22 08/17/22 simvastatin 20 mg tablet 20 mg PO QHS #90 tabs 07/17/22 08/17/22 amitriptyline 50 mg tablet 50 mg PO QHS #90 tabs 07/22/22 08/17/22 sumatriptan succinate 50 mg tablet See Rx Instructions PO .COMPLEX 08/10/22 08/17/22 #20 tabs pantoprazole 40 mg tablet,delayed 40 mg PO BID #90 tabs 08/12/22 08/17/22 release (Protonix) clotrimazole-betamethasone 1 1 applic topical BID 2 weeks #15 08/17/22 08/17/22 %-0.05 % topical cream grams Previous Rx's Medication Instructions Recorded aspirin 81 mg tablet,delayed 81 mg PO DAILY #90 tabs 01/08/22 release (Adult Aspirin Regimen) ibuprofen 800 mg tablet 800 mg PO Q8H PRN pain #60 tabs 03/11/22 topiramate 25 mg tablet (Topamax) 25 mg PO DAILY #90 tabs 04/22/22 simvastatin 20 mg tablet 20 mg PO QHS #90 tabs 07/17/22 amitriptyline 50 mg tablet 50 mg PO QHS #90 tabs 07/22/22 sumatriptan succinate 50 mg tablet See Rx Instructions PO .COMPLEX 08/10/22 #20 tabs pantoprazole 40 mg tablet,delayed 40 mg PO BID #90 tabs 08/12/22 release (Protonix) clotrimazole-betamethasone 1 1 applic topical BID 2 weeks #15 08/17/22 %-0.05 % topical cream grams Allergies Allergy/AdvReac Type Severity Reaction Status Date / Time Opioids - Morphine Analogues AdvReac Intermediate nausea Verified 08/17/22 11:36 oxycodone [From Xtampza ER] AdvReac Unknown Nausea, Verified 08/17/22 11:36 headache General Stated Complaint: Orthopedic KATHRINE: 4 Review of Systems All systems reviewed & are unremarkable except as noted in HPI and below Constitutional Constitutional: Denies chills, Denies fever(s) and Denies weakness Cardiovascular Cardiovascular: Denies chest pain and Denies dyspnea Respiratory Respiratory: Denies cough and Denies dyspnea Gastrointestinal Gastrointestinal: Denies abdominal pain, Denies nausea and Denies vomiting Musculoskeletal Musculoskeletal: Denies joint swelling Neurologic Neurologic: Denies weakness PFSH All Active Problems (Updated 08/17/22 @ 20:32 by Eduardo Sims MD) Right wrist sprain (Acute) Dermatitis (Acute) Bilateral carotid artery stenosis (Acute) Internal derangement of right knee (Acute) DUROLANE 07/13/22 Reflex sympathetic dystrophy of the arm (Chronic) RSD RUE--on disability Hyperlipidemia (Acute) PVD s/p endarderectomy; on statin Degeneration of intervertebral disc of lumbosacral region (Acute) Lumbar spinal stenosis (Chronic ~05/27/18) Depressive disorder (Chronic) Fibromyalgia (Chronic) GERD (gastroesophageal reflux disease) (Chronic) Omeprazole; EGD many years ago; never used H2 krystina Migraine (Chronic) RX Topamax; breakthrough is rest & dark room (couple times per year) Body mass index (BMI) of 30.0 to 30.9 in adult (Acute) Pulmonary nodules (Acute) CT 04/2020: Tiny subpleural nodules in the lungs. For low risk patient, no routine follow-up is recommended. For high risk patients, (history of smoking or other known risk fractures) optional CT scan of the chest at 12 months should be considered. Chronic pain (Chronic) Spine & RSD RUE; long-term hydrocodone-apap since 2015; s/p multiple lumbar spine surgeries; +DIsability History of nicotine use (Chronic) 30 pack years; quit 2001 Trochanteric bursitis (Acute) Lumbar radiculopathy (Acute) Facet syndrome, lumbar (Acute) Opioid dependence (Acute) Clean for 2 months on 09/05/20 Cannabis dependence (Acute) daily use Swallowing difficulty (Acute) Hiatal hernia with GERD (Acute) Erosive esophagitis (Acute) Bile reflux gastritis (Acute) Lumbosacral spondylosis without myelopathy (Acute) Shortness of breath (Acute) COPD (chronic obstructive pulmonary disease) (Chronic) 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 repeat 2024 Arterial atherosclerosis (Acute) Chemical gastritis (Acute) Prediabetes (Acute) Onycholysis (Acute) Medical History Knee pain s/[place] surgery ([place]) Leg pain Low blood pressure Prolapsed cervical intervertebral disc Right lower quadrant abdominal pain Surgical History H/O discectomy (~2006) H/O laminectomy H/O lumbosacral spine surgery x2 History of esophagogastroduodenoscopy (EGD) (~03/18/21) History of hysterectomy (~02/22/95) for menorrhagia History of right cataract surgery History of right-sided carotid endarterectomy (~12/23/16) s/p x2 TIAs F/U with PCP at [facility] Hx of elbow surgery chronic tennis elbow Hx of right knee surgery meniscal repair S/P carpal tunnel release (~02/22/03) R Family History Father , 76yo lung cancer Cancer Lung Heart disease Hypertension Sister , 44yo lung cancer Cancer all organs Mother , 84yo dementia Dementia Sister No problems noted. Sister No problems noted. Brother No problems noted. Social History Smoking/Tobacco Use Status: Former Tobacco Use tobacco type: cigarettes Quit Date: 02/22/01 Tobacco: How many years used: 30 Second Hand Exposure: Yes Smoking risk assessment performed?: Yes Alcohol Intake: never Drug use: Daily Substance use type: marijuana Adopted: No Caregiver/Support person: No Foster care: No Household members: none Communication Needs: None Do you need help understanding health information?: Never Pets and animals: Yes Pets and animals: cat(s) Sexually active: Yes Do you think of yourself as: straight/heterosexual Current gender identity: female What is your relationship status?: How often do you talk on the phone with friends or family?: three or more times per week How often do you get together with friends or relatives?: three or more times per week How often do you attend pentecostal or mandaeism services?: decline to answer Do you belong to any clubs or organized social groups?: no Panel score (0-1 are the most socially isolated patients): 1 What type of physical activity do you participate in: none Paola/Taoist: None Special paola needs: No Agree to transfusion: No Seatbelt use: always Helmet use: No Drive intox or ride w/intox class b driver: No Do you feel safe at home: Yes Do you feel safe in your relationship?: Yes Additional Social history: lives alone Exam Const General: no acute distress Orientation: alert [facility] Head: normal to inspection Ears: external ears normal General nose exam: external nose normal Mouth: moist mucous membranes Eyes General: appearance normal, both eyes and all related structures Neck Neck: normal visual inspection Resp Effort & Inspection: normal respiratory effort and able to speak in complete sentences Cardio Rate: regular rate Skin General skin exam: no rashes or lesions noted Neuro General: patient alert and patient oriented x3 Extrem General: normal to inspection, full ROM and capillary refill normal Psych Mental Status: mental status grossly normal Course Vital Signs Vital signs: Vital Signs Temperature 37.3 C 08/17/22 19:16 Pulse 100 H 08/17/22 19:16 Respiratory Rate 18 08/17/22 19:16 Blood Pressure 155/76 H 08/17/22 19:16 Pulse Oximetry 96 08/17/22 19:16 Temperature 37.3 C 08/17/22 19:16 Temperature Source Temporal Artery Scan 08/17/22 19:16 Pulse 100 H 08/17/22 19:16 Respiratory Rate 18 08/17/22 19:16 Blood Pressure 155/76 H 08/17/22 19:16 Pulse Oximetry 96 08/17/22 19:16 Oxygen Delivery Method Room Air 08/17/22 19:16 Oxygen Flow Rate 0 08/17/22 19:16
== END 2022-08-17 20:53 | disposition home or self-care (01) ==
PROVIDERS: Emergency Provider Emergency Medicine; PCP Nurse Practitioner Family
DX: M25.531 Pain in right wrist (principal); S63.501A Unspecified sprain of right wrist, initial encounter; W18.30XA Fall on same level, unspecified, initial encounter; Y93.02 Activity, running; Y92.89 Other specified places as the place of occurrence of the external cause; Y99.9 Unspecified external cause status; Z79.82 Long term (current) use of aspirin; Z87.891 Personal history of nicotine dependence
CPT/HCPCS: 99283; 73110

== ENCOUNTER 2022-10-28 12:11 | Emergency (ER) | payer MEDICARE, MEDICAID, SELFPAY ==
[2022-10-28 12:16] VITALS: BP 139/89; PULSE 86; RESP 16; TEMP 36.4; O2SAT 97
--- NOTE | 2022-10-28 13:15 | DI.US_ITS ---
Exam(s) US LOWER EXTREMITY VENOUS RT EXAM: US LOWER EXTREMITY VENOUS RT CLINICAL HISTORY: COVID +, left calf pain and edema TECHNIQUE: Right lower extremity venous ultrasound performed using grayscale, color-flow, and spectr al Doppler analysis. COMPARISON: US US LOWER EXTREMITY VENOUS RT from 02/20/2022 FINDINGS: The right common femoral, femoral and popliteal veins demonstrate normal compressibility, augmentatio n, and color Doppler. The posterior tibial and peroneal veins are patent. The saphenofemoral junctio n is unremarkable. There is no evidence of a Arana cyst. The soft tissues are unremarkable. IMPRESSION: 1. No evidence of a right lower extremity DVT. 2. Findings were discussed with the emergency department at 2:40 p.m. on 10/28/2022. DATA REPOSITORY:
--- NOTE | 2022-10-28 13:15 | RT.EKG_ITS ---
APPROVED REPORT Exam: Resting ECG Reason for Exam: Chest pressure Patient Location: E HR:69 bpm ECG Measurements Heart Rate 69 AXIS TX 139 P 46 QRSd 90 QRS 54 QT 397 T 28 QTc 425 Conclusion Sinus rhythm.. V-rate 60- [address] segment or T wave abnormalities to suggest occlusive CT
--- NOTE | 2022-10-28 13:30 | ED.GENADUL_ITS ---
Discharge Plan Disposition Patient Disposition: Home Condition: Good Discharge Details Clinical Impression: COVID-19 Primary Care Provider: Maximus Leiva ED Provider: Val Lux Home Meds and New Rx's Prescriptions: No Action ibuprofen 800 mg tablet 800 mg PO Q8H PRN (Reason: pain) Qty: 60 0RF terbinafine HCl 1 % cream 1 applic topical BID Qty: 30 0RF Patient Comments: Pt states not taking ML 10/28/22 aspirin [Adult Aspirin Regimen] 81 mg tablet,delayed release (DR/EC) 81 mg PO DAILY Qty: 90 3RF topiramate [Topamax] 25 mg tablet 25 mg PO DAILY Qty: 90 3RF simvastatin 20 mg tablet 20 mg PO QHS Qty: 90 3RF amitriptyline 50 mg tablet 50 mg PO QHS Qty: 90 4RF pantoprazole [Protonix] 40 mg tablet,delayed release (DR/EC) 40 mg PO BID Qty: 90 12RF sumatriptan succinate 50 mg tablet See Rx Instructions PO .COMPLEX Qty: 12 3RF Rx Instructions: take 1 tab at onset of headache; if no relief may repeat 1 tab after at least 2 hrs; max = 4 tabs/24 hr PO Discharge Instructions Instructions: Viral Syndrome (ED), COVID-19 (Coronavirus Disease 2019) (ED) Additional Instructions: Call your primary care doctor today to schedule an appointment to follow up on your visit here. Please mention the incidental finding of a small lung nodule; they may want to get a repeat CT scan in a year or so. Return to the emergency department for new or worsening symptoms including new/different/worse pain, difficulty breathing, feeling like you are going to pass out, or if you have any other concerns. Referrals: Maximus Leiva, AQUATIC HABITAT BIOLOGIST [Primary Care Provider] - Medical Decision Making 62yo F with COPD presenting for chest tightness for several days. Freedom generally unwell starting 10/22; covid + on 10/23, no paxlovid, initially mild URI symptoms now with three days of constant chest tightness worse with inspiration. Vital signs reassuring, clear lungs on exam with right posterior calf pain and some increased edema RLE compared to left. EKG sinus rhythm with no indication of occlusive AL. Labs reviewed as below, CBC & CMP reassuring, no leukocytosis or significant electrolyte abnormalities, Troponin negative in the setting of days of constant pain (will not trend). Low suspicion for acute coronary syndrome; would not pursue further. CTA independently reviewed, no large pulmonary embolus on my view, agree with radiology read below. RLE ultrasound negative for DVT per radiology. On reassessment remains well appearing with reassuring vital signs. Advised of incdental lung nodule and instructed to followup with PCP. Discharged home; discharge instructions including return precautions were reviewed with patient who verbalized understanding. All questions were answered and they are in full agreement with the plan. Imaging Data Radiologic Study: Imaging: Ultrasound Radiologist's impression: MPRESSION: 1. No evidence of a right lower extremity DVT.? 2. Findings were discussed with the emergency department at 2:40 p.m. on 10/28/2022. Radiologic Study #2: Imaging: CT Scan Radiologist's impression: IMPRESSION: 1. No evidence of pulmonary embolism, thoracic aortic dissection or aneurysm.? 2. Bilateral ground-glass infiltrates consistent with pneumonia.? This can be seen with a COVID-19 pneumonia. 3. 4 mm nodule in the inferior aspect of the right upper lobe.? In low risk patients, no follow-up is required.? For high risk patients, optional CT scan in 12 months may be obtained (Yaakov et al, 2017). 4. Findings were discussed with Dr. Lux at 2:40 p.m. on 10/28/2022. Lab Data Lab results reviewed: Yes I reviewed the patient's lab results. HPI General Mode of arrival: ambulatory . Date/Time Provider Initiated Documentation: 10/28/22 12:43 . Limitations to Documentation: no limitations . Information obtained by: patient . HPI Narrative: 62yo F with COPD presenting for chest tightness for several days. Freedom generally unwell starting 10/22; covid + on 10/23. No paxlovid. Since then has had mild cough and congestion, over the past three days with constant chest tightness worse with deep inspiration. Today noted left calf pain. No fevers, chills, rash, nausea, vomiting, abdominal pain, palpitations. lightheadedness, syncope, or other concerns. Related Data Home Medications Medication Instructions Recorded Confirmed aspirin 81 mg tablet,delayed 81 mg PO DAILY #90 tabs 01/08/22 10/28/22 release (Adult Aspirin Regimen) ibuprofen 800 mg tablet 800 mg PO Q8H PRN pain #60 tabs 03/11/22 10/28/22 topiramate 25 mg tablet (Topamax) 25 mg PO DAILY #90 tabs 04/22/22 10/28/22 simvastatin 20 mg tablet 20 mg PO QHS #90 tabs 07/17/22 10/28/22 amitriptyline 50 mg tablet 50 mg PO QHS #90 tabs 07/22/22 10/28/22 pantoprazole 40 mg tablet,delayed 40 mg PO BID #90 tabs 08/12/22 10/28/22 release (Protonix) sumatriptan succinate 50 mg tablet See Rx Instructions PO .COMPLEX 12 08/28/22 10/28/22 tabs is 30 day supply per insurance #12 tabs terbinafine HCl 1 % topical cream 1 applic topical BID #30 grams 09/18/22 09/18/22 Previous Rx's Medication Instructions Recorded aspirin 81 mg tablet,delayed 81 mg PO DAILY #90 tabs 01/08/22 release (Adult Aspirin Regimen) ibuprofen 800 mg tablet 800 mg PO Q8H PRN pain #60 tabs 03/11/22 topiramate 25 mg tablet (Topamax) 25 mg PO DAILY #90 tabs 04/22/22 simvastatin 20 mg tablet 20 mg PO QHS #90 tabs 07/17/22 amitriptyline 50 mg tablet 50 mg PO QHS #90 tabs 07/22/22 pantoprazole 40 mg tablet,delayed 40 mg PO BID #90 tabs 08/12/22 release (Protonix) sumatriptan succinate 50 mg tablet See Rx Instructions PO .COMPLEX 12 08/28/22 tabs is 30 day supply per insurance #12 tabs terbinafine HCl 1 % topical cream 1 applic topical BID #30 grams 09/18/22 Allergies Allergy/AdvReac Type Severity Reaction Status Date / Time Opioids - Morphine Analogues AdvReac Intermediate nausea Verified 10/28/22 13:18 oxycodone [From Xtampza ER] AdvReac Unknown Nausea, Verified 10/28/22 13:18 headache General Stated Complaint: RespSymp KATHRINE: 3 Review of Systems Narrative: see HPI PFSH All Active Problems (Updated 10/28/22 @ 14:48 by Val Lux MD) COVID-19 (Acute) Dermatitis (Acute) Bilateral carotid artery stenosis (Acute) Internal derangement of right knee (Acute) DUROLANE 07/13/22 Reflex sympathetic dystrophy of the arm (Chronic) RSD RUE--on disability Hyperlipidemia (Acute) PVD s/p endarderectomy; on statin Degeneration of intervertebral disc of lumbosacral region (Acute) Lumbar spinal stenosis (Chronic ~05/27/18) Depressive disorder (Chronic) Fibromyalgia (Chronic) GERD (gastroesophageal reflux disease) (Chronic) Omeprazole; EGD many years ago; never used H2 krystina Migraine (Chronic) RX Topamax; breakthrough is rest & dark room (couple times per year) Body mass index (BMI) of 30.0 to 30.9 in adult (Acute) Pulmonary nodules (Acute) CT 04/2020: Tiny subpleural nodules in the lungs. For low risk patient, no routine follow-up is recommended. For high risk patients, (history of smoking or other known risk fractures) optional CT scan of the chest at 12 months should be considered. Chronic pain (Chronic) Spine & RSD RUE; long-term hydrocodone-apap since 2015; s/p multiple lumbar spine surgeries; +DIsability History of nicotine use (Chronic) 30 pack years; quit 2001 Trochanteric bursitis (Acute) Lumbar radiculopathy (Acute) Facet syndrome, lumbar (Acute) Opioid dependence (Acute) Clean for 2 months on 09/05/20 Cannabis dependence (Acute) daily use Swallowing difficulty (Acute) Hiatal hernia with GERD (Acute) Erosive esophagitis (Acute) Bile reflux gastritis (Acute) Lumbosacral spondylosis without myelopathy (Acute) Shortness of breath (Acute) COPD (chronic obstructive pulmonary disease) (Chronic) 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 repeat 2024 Arterial atherosclerosis (Acute) Chemical gastritis (Acute) Prediabetes (Acute) Onycholysis (Acute) Medical History [place] ([place]) Leg pain Low blood pressure Prolapsed cervical intervertebral disc Right lower quadrant abdominal pain Surgical History H/O discectomy (~2006) H/O laminectomy H/O lumbosacral spine surgery x2 History of esophagogastroduodenoscopy (EGD) (~03/18/21) History of hysterectomy (~02/22/95) for menorrhagia History of right cataract surgery History of right-sided carotid endarterectomy (~12/23/16) s/p x2 TIAs F/U with PCP at [facility] Hx of elbow surgery chronic tennis elbow Hx of right knee surgery meniscal repair S/P carpal tunnel release (~02/22/03) R Family History Father , 76yo lung cancer Cancer Lung Heart disease Hypertension Sister , 44yo lung cancer Cancer all organs Mother , 84yo dementia Dementia Sister No problems noted. Sister No problems noted. Brother No problems noted. Social History Smoking/Tobacco Use Status: Former Tobacco Use tobacco type: cigarettes Quit Date: 02/22/01 Tobacco: How many years used: 30 Second Hand Exposure: Yes Smoking risk assessment performed?: Yes Alcohol Intake: never Drug use: Occasionally Substance use type: marijuana Adopted: No Caregiver/Support person: No Foster care: No Household members: none Housing: apartment Communication Needs: None Do you need help understanding health information?: Never Pets and animals: Yes Pets and animals: cat(s) Sexually active: Yes Do you think of yourself as: straight/heterosexual Current gender identity: female What is your relationship status?: How often do you talk on the phone with friends or family?: three or more times per week How often do you get together with friends or relatives?: three or more times per week How often do you attend voodoo or baptist services?: decline to answer Do you belong to any clubs or organized social groups?: no Panel score (0-1 are the most socially isolated patients): 1 What type of physical activity do you participate in: none Paola/Synagogue: None Special paola needs: No Agree to transfusion: No Seatbelt use: always Helmet use: No Drive intox or ride w/intox route delivery service driver: No Do you feel safe at home: Yes Do you feel safe in your relationship?: Yes Additional Social history: lives alone Exam Narrative Exam Narrative: General: Alert, well appearing, well nourished, in no acute distress. Head: Normocephalic, atraumatic Neck: Trachea midline, Neck supple. ENT: MMM. No oropharygeal lesions or exudate. Cardiac: RRR, no murmurs appreciated Resp: No respiratory distress. CTAB. Abd: Soft, non-distended, nontender : No suprapubic tenderness. No CVA tenderness. Extremities: No deformities. 1+ pitting edema RLE, trace pitting edema on left. Right posterior calf TTP with palpable cords consistent with superficial venous thrombosis/varicose veins. Neurologic: GCS 15. Moves all extremities freely against gravity Course Vital Signs Vital signs: Vital Signs Temperature 36.4 C L 10/28/22 12:16 Pulse 86 10/28/22 12:16 Respiratory Rate 16 10/28/22 12:16 Blood Pressure 139/89 10/28/22 12:16 Pulse Oximetry 97 10/28/22 12:16 Temperature 36.4 C L 10/28/22 12:16 Pulse 86 10/28/22 12:16 Respiratory Rate 16 10/28/22 12:16 Respiratory Effort Normal, Non-Labored 10/28/22 13:15 Respiratory Depth Normal 10/28/22 13:15 Respiratory Pattern Normal 10/28/22 13:15 Blood Pressure 139/89 10/28/22 12:16 Pulse Oximetry 97 10/28/22 12:16 Pain Level 5 10/28/22 13:15
[2022-10-28 13:54] LABS: Abs Immature Grans 0.06 10^3/uL (0.0-0.06); Absolute Basophil Count 0.03 10^3/uL (0.0-0.2); Absolute Eosinophil Count 0.28 10^3/uL (0.0-0.7); Absolute Lymphocyte Count 3.16 10^3/uL (1.2-3.4); Absolute Monocyte Count 0.51 10^3/uL (0.1-0.8); Absolute Neutrophil Count 3.35 10^3/uL (1.2-6.7); Basophils % 0.4; Eosinophils % 3.8; HCT 36.5 % (36.0-46.0); HGB 11.9 g/dL (11.2-15.7); Immature Grans % 0.8; Lymphocytes % 42.8; MCH 27.2 pg (27.0-33.0); MCHC 32.6 % (32.0-36.0); MCV 84 fL (80-95); MPV 9.4 fL (8.0-11.0); Monocytes % 6.9; Neutrophils % 45.3; Platelet Count 332 10^3/uL (130-400); RBC 4.37 10^6/uL (3.93-5.22); RDW 14.3 % (11.7-14.6); RDW-SD 43.8 fL; WBC 7.39 10^3/uL (4.4-10.8)
[2022-10-28] MEDS: Omnipaque 350 MG/ML 100 ML BTL IJ (14:10)
[2022-10-28] MEDS: Normal Saline - Diluent 50 ML VIAL IJ (14:11)
[2022-10-28] MEDS: Normal Saline Flush 10 ML SYR IVP (14:12)
[2022-10-28 14:15] LABS: ALT 26 U/L (14-59); AST 13 U/L (15-37); Albumin 3.7 g/dL (3.4-5.0); Alkaline Phosphatase 108 U/L (46-116); Anion Gap 8.9 mmol/L (3-11); BUN 10 mg/dL (7-18); Bilirubin, Total 0.3 mg/dL (0.2-1.0); CO2 25.1 mmol/L (21.0-32.0); CREATININE 0.9 mg/dL (0.55-1.02); Calcium 8.9 mg/dL (8.5-10.1); Chloride 105 mmol/L (98-107); Estimated GFR 72.28 (mL/min/1.73m2); Glucose 108 mg/dL (74-106); Potassium 3.8 mmol/L (3.5-5.1); Sodium 139 mmol/L (136-145); Total Protein 7.3 g/dL (6.4-8.2); Troponin I < 50 ng/L (<or=60)
--- NOTE | 2022-10-28 14:17 | DI.CT_ITS ---
Exam(s) CT CHEST PE CTA EXAM: CT CHEST PE CTA CLINICAL HISTORY: COVID +, pleuritic chest pain. TECHNIQUE: Imaging Protocol: Axial CT angiography was performed with multi-slice acquisition and mu lti-planar and/or 3D reconstructions. CONTRAST MATERIAL: Intravenous: Omnipaque 350 contrast volume:100 mL COMPARISON: CT CT THORAX CTA from 11/07/[address] RENAL COLIC WO from 04/01/2021 FINDINGS: Tracheobronchial tree: Patent where visualized. Pulmonary parenchyma: There are bilateral ground-glass infiltrates present. There is a 4 mm nodule i n the inferior aspect of the right upper lobe. (Series 7, image 315). Pulmonary Arteries: No evidence of filling defect to suggest pulmonary emboli. Mediastinum and Nuvia: No dominant adenopathy or fluid collection. The esophagus is unremarkable. Visualized thyroid gland: Unremarkable. Pleura: No effusion or pneumothorax. Heart: Cardiomegaly. Coronary artery calcifications. No pericardial effusion. Aorta: Thoracic aorta non-dilated. No evidence of dissection. Atherosclerosis. Upper abdomen: Unremarkable. Soft tissues: Unremarkable. Bones: Within normal limits for the patient's age. IMPRESSION: 1. No evidence of pulmonary embolism, thoracic aortic dissection or aneurysm. 2. Bilateral ground-glass infiltrates consistent with pneumonia. This can be seen with a COVID-19 pn eumonia. 3. 4 mm nodule in the inferior aspect of the right upper lobe. In low risk patients, no follow-up is required. For high risk patients, optional CT scan in 12 months may be obtained (Yaakov et al, 201 7). 4. Findings were discussed with Dr. Lux at 2:40 p.m. on 10/28/2022. RADIATION DOSE DELIVERED: 407.36mGy.cm Total DLP DATA REPOSITORY: All CT scans at this facility are submitted to the National Radiology Data Registry (NRDR) Dose Index Registry (DIR) with the [employer] (ACR). RADIATION OPTIMIZATION: All CT scans at this facility use at least one of these dose optimization te chniques: automated exposure control; mA and/or kV adjustment per patient size (includes targeted exa ms where dose is matched to clinical indication); or iterative reconstruction.
== END 2022-10-28 15:21 | disposition home or self-care (01) ==
PROVIDERS: Emergency Provider Student in an Organized Health Care Education/Training Program; PCP Nurse Practitioner Family
DX: U07.1 COVID-19 (principal); R07.9 Chest pain, unspecified; M79.662 Pain in left lower leg; R91.1 Solitary pulmonary nodule
CPT/HCPCS: 36415; 71275; 80053; 93005; 99285; 84484; 85025; 93010; 93971; 99284; J3490

== ENCOUNTER 2022-12-27 10:14 | Emergency (ER) | payer MEDICARE, MEDICAID, SELFPAY ==
[2022-12-27 10:23] VITALS: BP 124/84; PULSE 86; RESP 16; TEMP 36.4; O2SAT 96
--- NOTE | 2022-12-27 10:45 | DI.RAD_ITS ---
Exam(s) XR SHOULDER RT COMPLETE 2+V EXAM: XR SHOULDER RT COMPLETE 2+V CLINICAL HISTORY: anterior pain. TECHNIQUE: 2D digital imaging was performed of the right shoulder. Five images were obtained. AP, Grashey, Y-view and axillary views were obtained. COMPARISON: No previous for comparison. FINDINGS: BONES: No acute fracture is present. No bony destructive lesion is seen. Prior right shoulder surgery . Benign-appearing lucency in the proximal humeral diaphysis which may be postsurgical. JOINTS: No dislocation present. The glenohumeral joint is well maintained. Mild degenerative changes are seen at the acromioclavicular joint. SOFT TISSUE: The visualized lung is clear. Surgical clips are seen in the soft tissues of the right neck. IMPRESSION: Postsurgical and degenerative changes in the right shoulder. DATA REPOSITORY: RADIATION DOSE DELIVERED:
--- NOTE | 2022-12-27 11:16 | DI.VRAD_ITS ---
PROCEDURE INFORMATION: Exam: XR Right Shoulder Exam date and time: 12/27/2022 10:55 AM Age: 62 years old Clinical indication: Other: Anterior shoulder pain; Prior surgery; Surgery date: 6+ months; Surgery type: Multiple different surgeries over the years, unknown TECHNIQUE: Imaging protocol: Radiologic exam of the right shoulder. Views: 2 or more views. COMPARISON: CT CHEST PE CTA 10/28/2022 2:14 PM FINDINGS: Tubes, catheters and devices: Surgical clips in the right neck base. Bones/joints: Degenerative change. Benign appearing 10 mm nodular lytic lesion with sclerotic borders in the proximal humeral diaphysis. Anatomic alignment. Lungs: Interstitial prominence in the visualized right lung. Soft tissues: Unremarkable. IMPRESSION: Degenerative change. Dictated and Authenticated by: Rasheed Cherry MD. Ordering:HEATH Parikh MD
--- NOTE | 2022-12-27 11:50 | W.ED.GENAD ---
Discharge Plan Disposition Patient Disposition: Home Discharge Details Clinical Impression: Injury of right shoulder Primary Care Provider: Maximus Leiva ED Provider: Jl Veloz Home Meds and New Rx's Prescriptions: New diclofenac sodium 3 % gel 1 applic topical BID PRN (Reason: pain) Qty: 100 1RF Continued ibuprofen 800 mg tablet 800 mg PO Q8H PRN (Reason: pain) Qty: 60 0RF topiramate [Topamax] 25 mg tablet 25 mg PO DAILY Qty: 90 3RF simvastatin 20 mg tablet 20 mg PO QHS Qty: 90 3RF amitriptyline 50 mg tablet 50 mg PO QHS Qty: 90 4RF pantoprazole [Protonix] 40 mg tablet,delayed release (DR/EC) 40 mg PO BID Qty: 90 12RF sumatriptan succinate 50 mg tablet See Rx Instructions PO .COMPLEX Qty: 12 3RF Rx Instructions: take 1 tab at onset of headache; if no relief may repeat 1 tab after at least 2 hrs; max = 4 tabs/24 hr PO aspirin [Adult Aspirin Regimen] 81 mg tablet,delayed release (DR/EC) 81 mg PO DAILY Qty: 90 3RF Discharge Instructions Instructions: Shoulder Pain (ED) Additional Instructions: You may use the provided sling as needed for discomfort. If you are wearing the sling please perform gentle range of motion activities 2-3 times daily. You may continue to use [id number] pain medication along with the topical meds as prescribed. Please call the orthopedic office tomorrow afternoon for arrangement of follow-up appointment or feel free to return the emergency department for any new or significant worsening of symptoms. Referrals: [facility] [Provider Group] - 2 weeks Medical Decision Making Patient presenting to the emergency department for chief complaint of right shoulder pain. Patient reports a fall approximately 2 months ago that precipitated and worsened her shoulder pain. Patient does have history of Reflex Sympathetic Dystrophy Syndrome (RSD)/ Complex Regional Pain Syndrome (CRPS) of right upper extremity but she states that this pain is significantly worse and different than her chronic pain. Patient states she has been using [id number]-[id number] pain medication but due to symptoms not improving wanted to be seen. Patient does state that during the fall she did slightly injure her right wrist but that that has been improving as expected and is here mainly for her shoulder. Physical exam shows significant tenderness to palpation of the anterior shoulder and reduced range of motion with any extension or elevation of the shoulder in any plane above 60 degrees. Exam is otherwise noncontributory. Radiological imaging was performed and shows no acute findings. Patient was given a sling for comfort and placed on the orthopedic follow-up list as a do have high suspicion that she may have a ligamentous injury which may need MRI imaging or surgical intervention. Patient given diclofenac topical ointment to help with pain control and will otherwise follow-up with Ortho as discussed. After discussion of diagnosis and plan of care patient has no further needs, questions, or concerns and states clear understanding to return to the emergency department for any worsening symptoms. This documentation was generated using Omnistream dictation system, please disregard any oddities of phrase or misspellings. Imaging Data Radiologic Study: Imaging: X-Ray Radiologist's impression: Exam(s) PROCEDURE INFORMATION: Exam: XR Right Shoulder Exam date and time: 12/27/2022 10:55 AM Age: 62 years old Clinical indication: Other: Anterior shoulder pain; Prior surgery; Surgery date: 6+ months; Surgery type: Multiple different surgeries over the years, unknown TECHNIQUE: Imaging protocol: Radiologic exam of the right shoulder. Views: 2 or more views. COMPARISON: CT CHEST PE CTA 10/28/2022 2:14 PM FINDINGS: Tubes, catheters and devices: Surgical clips in the right neck base. Bones/joints: Degenerative change. Benign appearing 10 mm nodular lytic lesion with sclerotic borders in the proximal humeral diaphysis. Anatomic alignment. Lungs: Interstitial prominence in the visualized right lung. Soft tissues: Unremarkable. IMPRESSION: Degenerative change. HPI General Mode of arrival: ambulatory. Date/Time Provider Initiated Documentation: 12/27/22 10:33. Limitations to Documentation: no limitations. Information obtained by: patient and RN notes reviewed. History of Present Illness 62 year old F presents to the emergency department with the chief complaint of Fall, right shoulder pain, described as moderate and severe, Quality is described as sharp, and is localized to the right and upper extremity. Patient started experiencing this month(s) (2) and it has been constant. Immobilization improves symptom(s), Movement worsens symptoms . Patient notes no other symptoms.. Patient did receive the following treatments prior to arrival, NSAID Related Data Home Medications Medication Instructions Recorded Confirmed ibuprofen 800 mg tablet 800 mg PO Q8H PRN pain #60 tabs 03/11/22 12/27/22 topiramate 25 mg tablet (Topamax) 25 mg PO DAILY #90 tabs 04/22/22 12/27/22 simvastatin 20 mg tablet 20 mg PO QHS #90 tabs 07/17/22 12/27/22 amitriptyline 50 mg tablet 50 mg PO QHS #90 tabs 07/22/22 12/27/22 pantoprazole 40 mg tablet,delayed 40 mg PO BID #90 tabs 08/12/22 12/27/22 release (Protonix) sumatriptan succinate 50 mg tablet See Rx Instructions PO .COMPLEX 12 08/28/22 12/27/22 tabs is 30 day supply per insurance #12 tabs aspirin 81 mg tablet,delayed 81 mg PO DAILY #90 tabs 12/23/22 12/27/22 release (Adult Aspirin Regimen) diclofenac sodium 3 % topical gel 1 applic topical BID PRN pain #100 12/27/22 grams Previous Rx's Medication Instructions Recorded ibuprofen 800 mg tablet 800 mg PO Q8H PRN pain #60 tabs 03/11/22 topiramate 25 mg tablet (Topamax) 25 mg PO DAILY #90 tabs 04/22/22 simvastatin 20 mg tablet 20 mg PO QHS #90 tabs 07/17/22 amitriptyline 50 mg tablet 50 mg PO QHS #90 tabs 07/22/22 pantoprazole 40 mg tablet,delayed 40 mg PO BID #90 tabs 08/12/22 release (Protonix) sumatriptan succinate 50 mg tablet See Rx Instructions PO .COMPLEX 12 08/28/22 tabs is 30 day supply per insurance #12 tabs aspirin 81 mg tablet,delayed 81 mg PO DAILY #90 tabs 12/23/22 release (Adult Aspirin Regimen) diclofenac sodium 3 % topical gel 1 applic topical BID PRN pain #100 12/27/22 grams Allergies Allergy/AdvReac Type Severity Reaction Status Date / Time Opioids - Morphine Analogues AdvReac Intermediate nausea Verified 12/27/22 10:34 oxycodone [From [facility] ER] AdvReac Unknown Nausea, Verified 12/27/22 10:34 headache General Stated Complaint: Orthopedic KATHRINE: 4 Review of Systems Constitutional Constitutional: Denies chills and Denies fever(s) ENT Ears, Nose, Mouth, and Throat: Denies neck pain Cardiovascular Cardiovascular: Denies chest pain Musculoskeletal Musculoskeletal: Denies back pain, Reports arthralgias, Reports limited range of motion, Denies neck pain, Denies numbness, Reports stiffness and Denies tingling Integumentary/Breasts Skin/Breast: Denies unusual bruising and Denies wounds Neurologic Neurologic: Denies numbness and Denies tingling PFSH All Active Problems Injury of right shoulder (Acute) COVID-19 (Acute) Dermatitis (Acute) Bilateral carotid artery stenosis (Acute) Internal derangement of right knee (Acute) DUROLANE 07/13/22 Reflex sympathetic dystrophy of the arm (Chronic) RSD RUE--on disability Hyperlipidemia (Acute) PVD s/p endarderectomy; on statin Degeneration of intervertebral disc of lumbosacral region (Acute) Lumbar spinal stenosis (Chronic ~05/27/18) Depressive disorder (Chronic) Fibromyalgia (Chronic) GERD (gastroesophageal reflux disease) (Chronic) Omeprazole; EGD many years ago; never used H2 krystina Migraine (Chronic) RX Topamax; breakthrough is rest & dark room (couple times per year) Body mass index (BMI) of 30.0 to 30.9 in adult (Acute) Pulmonary nodules (Acute) CT 04/2020: Tiny subpleural nodules in the lungs. For low risk patient, no routine follow-up is recommended. For high risk patients, (history of smoking or other known risk fractures) optional CT scan of the chest at 12 months should be considered. Chronic pain (Chronic) Spine & RSD RUE; long-term hydrocodone-apap since 2015; s/p multiple lumbar spine surgeries; +DIsability History of nicotine use (Chronic) 30 pack years; quit 2001 Trochanteric bursitis (Acute) Lumbar radiculopathy (Acute) Facet syndrome, lumbar (Acute) Opioid dependence (Acute) Clean for 2 months on 09/05/20 Cannabis dependence (Acute) daily use Swallowing difficulty (Acute) Hiatal hernia with GERD (Acute) Erosive esophagitis (Acute) Bile reflux gastritis (Acute) Lumbosacral spondylosis without myelopathy (Acute) Shortness of breath (Acute) COPD (chronic obstructive pulmonary disease) (Chronic) 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 repeat 2024 Arterial atherosclerosis (Acute) Chemical gastritis (Acute) Prediabetes (Acute) Onycholysis (Acute) Medical History Prolapsed cervical intervertebral disc Leg pain Low blood pressure Right lower quadrant abdominal pain Knee pain s/p [place]iscal surgery ([place]) Surgical History History of esophagogastroduodenoscopy (EGD) (~03/18/21) H/O laminectomy H/O discectomy (~2006) History of right cataract surgery Hx of right knee surgery meniscal repair Hx of elbow surgery chronic tennis elbow H/O lumbosacral spine surgery x2 History of right-sided carotid endarterectomy (~12/23/16) s/p x2 TIAs F/U with PCP at [facility] S/P carpal tunnel release (~02/22/03) R History of hysterectomy (~02/22/95) for menorrhagia Family History Father , 76yo lung cancer Cancer Lung Heart disease Hypertension Sister , 44yo lung cancer Cancer all organs Mother , 84yo dementia Dementia Sister No problems noted. Sister No problems noted. Brother No problems noted. Social History Smoking/Tobacco Use Status: Former Tobacco Use tobacco type: cigarettes Quit Date: 02/22/01 Tobacco: How many years used: 30 Second Hand Exposure: Yes Smoking risk assessment performed?: Yes Alcohol Intake: never Drug use: Occasionally Substance use type: marijuana Adopted: No Caregiver/Support person: No Foster care: No Household members: none Housing: apartment Communication Needs: None Do you need help understanding health information?: Never Pets and animals: Yes Pets and animals: cat(s) Sexually active: Yes Do you think of yourself as: straight/heterosexual Current gender identity: female What is your relationship status?: How often do you talk on the phone with friends or family?: three or more times per week How often do you get together with friends or relatives?: three or more times per week How often do you attend adventist or zoroastrianism services?: decline to answer Do you belong to any clubs or organized social groups?: no Panel score (0-1 are the most socially isolated patients): 1 What type of physical activity do you participate in: none Paola/Scientologist: None Special paola needs: No Agree to transfusion: No Seatbelt use: always Helmet use: No Drive intox or ride w/intox 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 Do you feel safe at home: Yes Do you feel safe in your relationship?: Yes Additional Social history: lives alone Exam Const General: cooperative, no acute distress and not ill appearing Orientation: alert, awake and oriented x3 HENMT Mouth: moist mucous membranes Resp Effort & Inspection: normal respiratory effort, able to speak in complete sentences and no respiratory distress Cardio Rate: regular rate Rhythm: regular rhythm Pulses: normal peripheral pulses Skin General skin exam: no rashes or lesions noted Neuro General: patient alert, patient awake, patient oriented x3 and moves all extremities Extrem Right upper extremity: shoulder/upper arm Details: tenderness Location: over the coracoid process and abnormal ROM (Significantly limited extension) Details: pain with active ROM and pain with passive ROM; no abrasions and no lacerations Course Vital Signs Vital signs: Vital Signs Temperature 36.4 C 12/27/22 10:23 Pulse 86 12/27/22 10:23 Respiratory Rate 16 12/27/22 10:23 Blood Pressure 124/84 12/27/22 10:23 Pulse Oximetry 96 12/27/22 10:23 Temperature 36.4 C 12/27/22 10:23 Pulse 86 12/27/22 10:23 Respiratory Rate 16 12/27/22 10:23 Respiratory Effort Normal 12/27/22 10:33 Blood Pressure 124/84 12/27/22 10:23 Pulse Oximetry 96 12/27/22 10:23 Oxygen Delivery Method Room Air 12/27/22 10:23 Oxygen Flow Rate 0 12/27/22 10:23
== END 2022-12-27 12:31 | disposition home or self-care (01) ==
PROVIDERS: Emergency Provider Nurse Practitioner Family; PCP Nurse Practitioner Family
DX: G90.511 Complex regional pain syndrome I of right upper limb (principal); M19.011 Primary osteoarthritis, right shoulder; Z79.82 Long term (current) use of aspirin; Z87.891 Personal history of nicotine dependence
CPT/HCPCS: 99283; 73030

== ENCOUNTER 2022-12-29 13:04 | Emergency (ER) | payer MEDICARE, MEDICAID, SELFPAY ==
[2022-12-29 13:08] VITALS: BP 167/80; PULSE 97; TEMP 36.5; O2SAT 96
--- NOTE | 2022-12-29 13:15 | DI.CT_ITS ---
Exam(s) CT LUMBAR SPINE SI JOINTS WO EXAM: CT LUMBAR SPINE SI JOINTS WO CLINICAL HISTORY: pain left lumbar, fall. TECHNIQUE: Imaging Protocol: Axial computed tomography images with coronal and sagittal reformatted images were created and reviewed COMPARISON: No exams were available for comparison FINDINGS: Bones: There is multilevel posterior fusion hardware from L3 through S1, inclusive. Posterior fusio n bars are seen bilaterally at the L3-4 level but not at the other levels where there are bilateral i ntrapedicular screws also evident at L 4 and L5 levels. There are also intervertebral disc space dev ices at L4-5 and L5-S1 disc spaces which are not retropulsed into the spinal canal.. There is surgic al absence of posterior osseous elements of the lower 3 levels. There is no evidence of fracture nor listhesis. No hardware fracture evident. INDIVIDUAL LEVELS: There is no evidence of obvious disc herniation nor central spinal canal stenosis. There is also no obvious foraminal stenosis. The visualized sacroiliac joints and sacrum appear unremarkable. PARASPINAL SOFT TISSUES: Visualized paraspinal tissues appear unremarkable. No evidence of paraspinal hematoma. Psoas muscles appear unremarkable. No incidental significant so ft tissue findings in the field of view. IMPRESSION: 1. Previous multilevel fusion surgery L3 through S1, inclusive. 2. No fractures nor listhesis and visualized hardware appears intact. 3. No spinal canal stenosis. RADIATION DOSE DELIVERED: Total DLP DATA REPOSITORY: All CT scans at this facility are submitted to the National Radiology Data Registry (NRDR) Dose Index Registry (DIR) with the [employer] (ACR). RADIATION OPTIMIZATION: All CT scans at this facility use at least one of these dose optimization te chniques: automated exposure control; mA and/or kV adjustment per patient size (includes targeted exa ms where dose is matched to clinical indication); or iterative reconstruction.
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
[2022-12-29] MEDS: Lidocaine 5% Patch 1 PATCH TP (13:35)
== END 2022-12-29 15:23 | disposition home or self-care (01) ==
PROVIDERS: Emergency Provider Student in an Organized Health Care Education/Training Program; PCP Nurse Practitioner Family
DX: S30.0XXA Contusion of lower back and pelvis, initial encounter (principal); R03.0 Elevated blood-pressure reading, without diagnosis of hypertension; W18.39XA Other fall on same level, initial encounter; Y93.E1 Activity, personal bathing and showering; Y92.012 Bathroom of single-family (private) house as the place of occurrence of the external cause
CPT/HCPCS: 99284; 72131; 99283

== ENCOUNTER → 2023-01-12 09:56 | Outpatient (BNVA) | payer MEDICARE, MEDICAID, SELFPAY | PROVIDERS: PCP Nurse Practitioner Family; Referring Provider Nurse Practitioner Family; Visit Provider Student in an Organized Health Care Education/Training Program | DX: M75.101 Unspecified rotator cuff tear or rupture of right shoulder, not specified as traumatic (principal); M12.811 Other specific arthropathies, not elsewhere classified, right shoulder; Z98.890 Other specified postprocedural states | CPT/HCPCS: 99214 ==

== ENCOUNTER → 2023-01-29 00:24 | Outpatient (CLI) | payer MEDICARE, MEDICAID, SELFPAY ==
--- NOTE | 2023-01-29 07:00 | DI.MRI_ITS ---
Exam(s) MR UPPER JOINT RT WO EXAM: MR UPPER JOINT RT WO CLINICAL HISTORY: R SHOULDER PAIN,ROTATOR CUFF ARTHROPATHY,M75.101,M12.811 TECHNIQUE: Multiplanar multisequence MRI of the shoulder was performed. COMPARISON: CR,XR XR SHOULDER RT COMPLETE 2+V from 12/27/2022 FINDINGS: MARROW:There is no evidence of fracture, Hill-Sachs deformity, nor ominous osseous lesions. There is artifact from a tenodesis plate in the proximal diaphysis of the humerus. There is also some suscept ibility artifact in the anterior lateral subacromial space related to prior instrumentation/surgery a t this level. ROTATOR CUFF MECHANISM: AC JOINT/ACROMIUM: AC joint exhibits mild-moderate degenerative change. No prominent downgoing osteo phytes. No evidence of enthesophyte at the level the coracoclavicular ligament.. There is no evidence of os acromiale. Supraspinatus: Mild increased signal noted in the supraspinatus tendon. There does not appear to be a high-grade tear. No atrophy. Infraspinatus: Intact. No evidence of tear nor muscle atrophy. Teres Minor: Intact. No evidence of tear nor muscle atrophy. Subscapularis/anterior cuff: Intact. No abnormal signal at the level of the multipennate insertional fibers. No significant tear nor atrophy. BICEPS TENDON: Proximal humeral diaphysis tenodesis site. Biceps tendon appears intact at this level . Intra-articular aspect of the biceps tendon is absent. LABRUM: No labral tear identified. No evidence of paralabral cyst. LABROLIGAMENTOUS/CAPSULAR COMPLEX: There is no evidence of avulsion of the anterior-inferior labrum, capsule, inferior glenohumeral liga ment complex nor disruption of the scapular periosteum to suggest the presence of a Bankart lesion. GLENOHUMERAL JOINT: No joint effusion nor obvious loose intra-articular bodies. No prominent chondra l defects. No osteophytes. No degenerative subarticular cysts. QUADRILATERAL SPACE: No evidence of mass in the region of the axillary nerve and dorsal circumflex hu meral vessels. Visualized triceps muscle at this level appears unremarkable. IMPRESSION: 1. Evidence of previous surgery including biceps tenodesis (proximal humeral diaphysis site) and prob able rotator cuff although there are no occur fastener devices evident within the humeral head. 2. There is only mild increased signal within the supraspinatus tendon. No high-grade tear. No atro phy. No retraction of the musculotendinous junction. There is a thin sliver of fluid in the subacro mial space. However, there does not appear to be a full-thickness tear of the rotator cuff mechanism . No abnormality seen in the infraspinatus, subscapularis, and teres minor. 3. No labral tears identified. No evidence of paralabral cyst. 4. Mild moderate degenerative changes in the acromioclavicular joint. DATA REPOSITORY:
== END ==
PROVIDERS: PCP Nurse Practitioner Family; Visit Provider Student in an Organized Health Care Education/Training Program
DX: M19.011 Primary osteoarthritis, right shoulder (principal); Z98.890 Other specified postprocedural states
CPT/HCPCS: 73221

== ENCOUNTER → 2023-02-02 13:02 | Outpatient (BNVA) | payer MEDICARE, MEDICAID, SELFPAY | PROVIDERS: PCP Nurse Practitioner Family; Referring Provider Nurse Practitioner Family; Visit Provider Student in an Organized Health Care Education/Training Program | DX: M75.51 Bursitis of right shoulder (principal); M67.921 Unspecified disorder of synovium and tendon, right upper arm | CPT/HCPCS: 20610; J1030 ==

== ENCOUNTER → 2023-05-18 02:28 | Outpatient (CLI) | payer MEDICARE, MEDICAID, SELFPAY ==
--- NOTE | 2023-05-18 07:45 | DI.RAD_ITS ---
Exam(s) XR HIP RT COMPLETE AP PELVIS EXAM: XR HIP RT COMPLETE AP PELVIS CLINICAL HISTORY: worsening chronic right hip pain,m25.551. TECHNIQUE: 2D digital imaging was performed of the right hip. Two images were obtained. AP pelvis a nd lateral right hip views were obtained. COMPARISON: No exams were available for comparison FINDINGS: BONES: No acute fracture is present. No bony destructive lesion is seen. JOINTS: No dislocation present. There are postsurgical changes seen in the lower lumbar spine. The h ips are well maintained. The sacroiliac joints and symphysis pubis are unremarkable. SOFT TISSUE: Phleboliths are seen in the pelvis. There is a surgical clips seen in the left pelvis. IMPRESSION: Unremarkable hips. DATA REPOSITORY: RADIATION DOSE DELIVERED:
== END ==
PROVIDERS: PCP Nurse Practitioner Family; Visit Provider Nurse Practitioner Family
DX: M25.551 Pain in right hip (principal)
CPT/HCPCS: 73502

== ENCOUNTER 2023-05-19 04:56 | Outpatient (CLI) | payer MEDICARE, MEDICAID, SELFPAY ==
[2023-05-19 12:59] LABS: Calculated LDL 149 mg/dL (<100); Cholesterol 235 mg/dL (<200); HDL Cholesterol 47 mg/dL (40-60); Triglyceride 198 mg/dL (<150)
[2023-05-19 13:10] LABS: Hemoglobin A1C 6.5 % (<5.7)
== END 2023-05-19 04:57 | disposition home or self-care (01) ==
LOC: LOS 04:57
PROVIDERS: PCP Nurse Practitioner Family; Visit Provider Nurse Practitioner Family
DX: E78.2 Mixed hyperlipidemia (principal); R73.03 Prediabetes
CPT/HCPCS: 36415; 80061; 83036

== ENCOUNTER 2023-08-21 13:41 | Emergency (ER) | payer MEDICARE, MEDICAID, SELFPAY ==
[2023-08-21 13:44] VITALS: BP 135/74; PULSE 83; RESP 14; TEMP 36.1; O2SAT 96
[2023-08-21 14:06] VITALS: RESP 15
--- NOTE | 2023-08-21 14:25 | W.EDPROG ---
Date of service: 08/21/23 Time of Service: 14:25 Medical Decision Making I was asked to participate in this patient's care she had right leg swelling and pain. I completed a bedside ultrasound in conjunction with the patient's advanced practitioner which was concerning for the possibility of right lower extremity DVT for which she will receive treatment with apixaban prior to outpatient duplex study in 2 days. Quality:SDOH Health Related Social Needs: No Data to Display Discharge Plan Discharge Details Chief Complaint: Vascular Primary Care Provider: Maximus Leiva ED Provider: Jl Veloz Home Meds and New Rx's Prescriptions: No Action ibuprofen 800 mg tablet 800 mg PO Q8H PRN (Reason: pain) Qty: 60 0RF (DME) Aerochamber MV Spacer See Rx Instructions .Route Qty: 1 0RF Rx Instructions: As directed simvastatin 40 mg tablet 40 mg PO QHS Qty: 90 3RF amitriptyline 50 mg tablet 50 mg PO QHS Qty: 90 4RF pantoprazole [Protonix] 40 mg tablet,delayed release (DR/EC) 40 mg PO BID Qty: 90 12RF sumatriptan succinate 50 mg tablet See Rx Instructions PO .COMPLEX Qty: 12 3RF Rx Instructions: take 1 tab at onset of headache; if no relief may repeat 1 tab after at least 2 hrs; max = 4 tabs/24 hr PO aspirin [Adult Aspirin Regimen] 81 mg tablet,delayed release (DR/EC) 81 mg PO DAILY Qty: 90 3RF topiramate [Topamax] 25 mg tablet 25 mg PO DAILY Qty: 90 3RF metformin 500 mg tablet 250 mg PO BID Qty: 90 3RF POCUS Exam (ED) Limited Vascular Exam DATE OF EXAM: 08/21/23 TIME OF EXAM: 14:27 PROVIDER THAT PERFORMED THE STUDY: Srikanth Hernandez IS THIS A REPEAT EXAM DURING THIS ENCOUNTER: No Vascular Exam: Right lower extremity REASON FOR EXAM: Concern for DVT right lower extremity Exam Complete DIFFERENTIAL DIAGNOSES: Positive right lower extremity [id number] DVT study
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
== END 2023-08-21 14:42 | disposition home or self-care (01) ==
PROVIDERS: Emergency Provider Nurse Practitioner Family; PCP Nurse Practitioner Family
DX: I82.401 Acute embolism and thrombosis of unspecified deep veins of right lower extremity (principal); Z79.82 Long term (current) use of aspirin; Z79.899 Other long term (current) drug therapy; E11.9 Type 2 diabetes mellitus without complications; E78.5 Hyperlipidemia, unspecified; K21.9 Gastro-esophageal reflux disease without esophagitis; J44.9 Chronic obstructive pulmonary disease, unspecified
CPT/HCPCS: 123; 93971; 99284; 00123

== ENCOUNTER 2023-08-22 12:04 | Emergency (ER) | payer MEDICARE, MEDICAID, SELFPAY ==
[2023-08-22] VITALS (31 sets, daily range): BP systolic 108–167; BP diastolic 61–95; PULSE 61–100; RESP 15–24; TEMP 36.3; O2SAT 96
--- NOTE | 2023-08-22 12:00 | RT.EKG_ITS ---
APPROVED REPORT Exam: Resting ECG Reason for Exam: dizzy Patient Location: E HR:85 bpm ECG Measurements Heart Rate 85 AXIS OK 132 P 53 QRSd 90 QRS 66 QT 364 T 2 QTc 433 Conclusion Sinus rhythm...normal P axis, V-rate 60- 99 Narrow complex normal sinus rhythm at a rate of 85. Normal axis. Intervals within normal limits. T wave flattening V3 through V6.No acute injury pattern. Compared to prior dated last year T wave fla ttening has replaced T wave versions.
--- NOTE | 2023-08-22 12:30 | DI.RAD_ITS ---
Exam(s) XR PORTABLE CHEST AP EXAM: XR PORTABLE CHEST AP CLINICAL HISTORY: Chest pain TECHNIQUE: 2D digital imaging was performed of the chest. One image was obtained. An AP view was ob tained. COMPARISON: No exams were available for comparison FINDINGS: MEDIASTINUM: Normal. HEART: Normal. PULMONARY VASCULATURE: Normal. LUNGS: No focal consolidating infiltrates. PLEURAL SPACE: No pleural effusion or pneumothorax. BONE:Within normal limits for the patient's age. OTHER FINDINGS:Surgical clips are seen in the soft tissues of the right neck. IMPRESSION: No acute pulmonary findings. DATA REPOSITORY: RADIATION DOSE DELIVERED:
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
[2023-08-22 12:49] LABS: Abs Immature Grans 0.03 10^3/uL (0.0-0.06); Absolute Basophil Count 0.06 10^3/uL (0.0-0.2); Absolute Eosinophil Count 0.41 10^3/uL (0.0-0.7); Absolute Lymphocyte Count 2.85 10^3/uL (1.2-3.4); Absolute Monocyte Count 0.52 10^3/uL (0.1-0.8); Absolute Neutrophil Count 3.85 10^3/uL (1.2-6.7); Basophils % 0.8 %; Eosinophils % 5.3 %; HCT 36.5 % (36.0-46.0); Immature Grans % 0.4 %; Lymphocytes % 36.9 %; MCH 28.6 pg (27.0-33.0); MCHC 32.9 % (32.0-36.0); MCV 87 fL (80-95); MPV 9.9 fL (8.0-11.0); Monocytes % 6.7 %; Neutrophils % 49.9 %; Platelet Count 259 10^3/uL (130-400); RBC 4.19 10^6/uL (3.93-5.22); RDW 14.1 % (11.7-14.6); RDW-SD 45.1 fL; WBC 7.72 10^3/uL (4.4-10.8)
[2023-08-22 13:04] LABS: Anion Gap 7.9 mmol/L (3-11); BUN 13 mg/dL (7-18); CO2 27.1 mmol/L (21.0-32.0); CREATININE 0.9 mg/dL (0.55-1.02); Calcium 9.3 mg/dL (8.5-10.1); Chloride 108 mmol/L (98-107); Estimated GFR 71.83 (mL/min/1.73m2); Glucose 110 mg/dL (74-106); Potassium 4.1 mmol/L (3.5-5.1); Sodium 143 mmol/L (136-145)
[2023-08-22 13:05] LABS: Troponin I < 50 ng/L (< or =60)
[2023-08-22 13:32] LABS: D-Dimer 624 ng/mlFEU (<500)
--- NOTE | 2023-08-22 14:11 | DI.VRAD_ITS ---
PROCEDURE INFORMATION: Exam: XR Chest Exam date and time: 08/22/2023 1:00 PM Age: 63 years old Clinical indication: Other: Chest pain TECHNIQUE: Imaging protocol: Radiologic exam of the chest. Views: 1 view. COMPARISON: CT CHEST PE CTA 10/28/2022 2:14 PM FINDINGS: Tubes, catheters and devices: There are electrocardiographic leads on the thorax. Lungs: Unremarkable. No consolidation. Pleural spaces: Unremarkable. No pleural effusion. No pneumothorax. Heart/Mediastinum: Unremarkable. No cardiomegaly. Bones/joints: Unremarkable. Soft tissues: Previous right neck dissection. IMPRESSION: No acute findings. Dictated and Authenticated by: Chris Goldman MD. Ordering:VADIM Duke MD
[2023-08-22] MEDS: Normal Saline Flush 10 ML SYR IVP (14:12)
[2023-08-22] MEDS: Normal Saline - Diluent 50 ML VIAL IJ (14:18)
[2023-08-22] MEDS: Omnipaque 350 MG/ML 100 ML BTL IJ (14:19)
--- NOTE | 2023-08-22 14:21 | DI.CT_ITS ---
Exam(s) CT CHEST PE CTA EXAM: CT CHEST PE CTA CLINICAL HISTORY: Chest pain DVT. TECHNIQUE: Imaging Protocol: Axial CT angiography was performed with multi-slice acquisition and mu lti-planar and/or 3D reconstructions. CONTRAST MATERIAL: Intravenous: Omnipaque 350 contrast volume:100 mL COMPARISON: CT CT CHEST PE CTA from 10/28/2022 FINDINGS: Tracheobronchial tree: Patent where visualized. Pulmonary parenchyma: Emphysematous changes are present in the lungs. There is a 4 mm nodule in the right upper lobe. This is stable. No focal consolidating infiltrates are seen. Atelectatic changes are present in the lungs. Pulmonary Arteries: No evidence of filling defect to suggest pulmonary emboli. Mediastinum and Nuvia: No dominant adenopathy or fluid collection. The esophagus is unremarkable. Visualized thyroid gland: Unremarkable. Pleura: No effusion or pneumothorax. Heart: The heart is not dilated. No coronary artery calcifications are seen. No pericardial effusion. Aorta: Thoracic aorta non-dilated. No evidence of dissection. Atherosclerotic calcification is presen t. Upper abdomen: Unremarkable. Soft tissues: Unremarkable. Bones: Within normal limits for the patient's age. IMPRESSION: No evidence of pulmonary embolism, thoracic aortic dissection or aneurysm. RADIATION DOSE DELIVERED: 476.62mGy.cm Total DLP DATA REPOSITORY: All CT scans at this facility are submitted to the National Radiology Data Registry (NRDR) Dose Index Registry (DIR) with the [employer] (ACR). RADIATION OPTIMIZATION: All CT scans at this facility use at least one of these dose optimization te chniques: automated exposure control; mA and/or kV adjustment per patient size (includes targeted exa ms where dose is matched to clinical indication); or iterative reconstruction.
--- NOTE | 2023-08-22 14:43 | DI.VRAD_ITS ---
PROCEDURE INFORMATION: Exam: CTA Chest With Contrast Exam date and time: 08/22/2023 2:19 PM Age: 63 years old Clinical indication: Other: Chest pain dvt TECHNIQUE: Imaging protocol: Computed tomographic angiography of the chest with contrast. Exam focused on the arteries. 3D rendering (Not supervised by radiologist): MIP and/or 3D reconstructed images were created by the technologist. Contrast material: OMNI 350; Contrast volume: 100 ml; Contrast route: INTRAVENOUS (IV); COMPARISON: CT CHEST PE CTA 10/28/2022 2:14 PM FINDINGS: Pulmonary arteries: Normal. No pulmonary emboli. Aorta: Unremarkable. No aortic aneurysm. No aortic dissection. Lungs: No consolidations. Unchanged 0.4 cm juxtapleural nodule in the inferior right upper lobe on image [id number]. Unchanged pleural-based 0.4 cm nodule inferior left lower lobe on image 479. No consolidations. Pleural spaces: Unremarkable. No pneumothorax. No pleural effusion. Heart: Unremarkable. No cardiomegaly. No pericardial effusion. Lymph nodes: Unremarkable. No enlarged lymph nodes. Bones/joints: Unremarkable. No acute fracture. Soft tissues: Unremarkable. IMPRESSION: 1. Examination negative for pulmonary emboli, thoracic aortic aneurysm or dissection. 2. Unchanged pulmonary nodules. Stable pulmonary nodule(s) for which no further follow-up is recommended. (Reference: Selvin) REFERENCES: Selvin H, et al. Guidelines for Management of Incidental Pulmonary Nodules Detected on CT Images: From the Fleischner Society 2017. Radiology. 2017;284(1):228-243. Dictated and Authenticated by: Chris Goldman MD. Ordering:VADIM Duke MD
[2023-08-22 16:01] LABS: Troponin I < 50 ng/L (< or =60)
== END 2023-08-22 16:12 | disposition home or self-care (01) ==
PROVIDERS: Emergency Provider Emergency Medicine; PCP Nurse Practitioner Family
DX: R07.9 Chest pain, unspecified (principal); R10.30 Lower abdominal pain, unspecified; I82.401 Acute embolism and thrombosis of unspecified deep veins of right lower extremity; R42 Dizziness and giddiness; R79.1 Abnormal coagulation profile; R91.8 Other nonspecific abnormal finding of lung field; E66.3 Overweight; Z68.30 Body mass index [BMI] 30.0-30.9, adult; Z86.73 Personal history of transient ischemic attack (TIA), and cerebral infarction without residual deficits; E11.9 Type 2 diabetes mellitus without complications; E78.5 Hyperlipidemia, unspecified; K21.9 Gastro-esophageal reflux disease without esophagitis; J44.9 Chronic obstructive pulmonary disease, unspecified; Z79.899 Other long term (current) drug therapy
CPT/HCPCS: 36415; 71275; 80048; 82962; 93005; 99285; 71045; 84484; 85025; 85379; 93010; J3490

== ENCOUNTER 2023-08-23 07:34 | Emergency (ER) | payer MEDICARE, MEDICAID, SELFPAY ==
[2023-08-23 07:36] VITALS: BP 136/82; PULSE 86; RESP 18; TEMP 37.1; O2SAT 98
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
== END 2023-08-23 07:45 | disposition home or self-care (01) ==
LOC: ER 08:31
PROVIDERS: Emergency Provider Emergency Medicine; PCP Nurse Practitioner Family
DX: M79.661 Pain in right lower leg (principal)
CPT/HCPCS: 99281; 99282

== ENCOUNTER → 2023-08-23 08:45 | Outpatient (CLI) | payer MEDICARE, MEDICAID, SELFPAY ==
--- NOTE | 2023-08-23 | DI.US_ITS ---
Exam(s) US LOWER EXTREMITY VENOUS RT EXAM: US LOWER EXTREMITY VENOUS RT CLINICAL HISTORY: RT LEG PAIN, SWELLING, ? DVT, M79.604, R22.41 TECHNIQUE: Right lower extremity venous ultrasound performed using grayscale, color-flow, and spectr al Doppler analysis. COMPARISON: US US LOWER EXTREMITY VENOUS RT from 10/28/2022 FINDINGS: The right common femoral, femoral and popliteal veins demonstrate normal compressibility, augmentatio n, and color Doppler. The posterior tibial and peroneal veins are patent. The saphenofemoral junctio n is unremarkable. There is no evidence of a Arana cyst. The soft tissues are unremarkable. IMPRESSION: No evidence of a right lower extremity DVT. DATA REPOSITORY:
--- NOTE | 2023-08-23 08:02 | DI.VRAD_ITS ---
PROCEDURE INFORMATION: Exam: US Duplex Right Lower Extremity Veins, Limited Exam date and time: 08/23/2023 7:20 AM Age: 63 years old Clinical indication: Other: RT leg pain, ? dvt TECHNIQUE: Imaging protocol: Real-time duplex ultrasound of the right extremity with 2-D julio scale, color Doppler flow and spectral waveform analysis including responses to compression and other maneuvers (when performed) with image documentation. Limited exam was focused on the right lower extremity veins. COMPARISON: US LOWER EXTREMITY VENOUS RT 10/28/2022 1:52 PM FINDINGS: Right deep veins: Unremarkable. The common femoral, femoral, proximal profunda femoral and popliteal veins are patent without thrombus. Normal Doppler waveforms. Normal compressibility and/or augmentation response. Superficial veins: Greater saphenous vein at the saphenofemoral junction is patent without thrombus. Soft tissues: Unremarkable. IMPRESSION: No evidence of deep venous thrombosis in the right lower extremity. Dictated and Authenticated by: Danielle Moya MD. Ordering:HEATH Parikh MD
== END ==
PROVIDERS: PCP Nurse Practitioner Family; Visit Provider Nurse Practitioner Family
DX: M79.604 Pain in right leg (principal); R22.41 Localized swelling, mass and lump, right lower limb
CPT/HCPCS: 93971

== ENCOUNTER 2023-10-08 16:26 | Outpatient (CLI) | payer MEDICARE, MEDICAID, SELFPAY ==
[2023-10-08 15:47] LABS: HCT 36.5 % (36.0-46.0); HGB 12.3 g/dL (11.2-15.7); MCH 28.7 pg (27.0-33.0); MCHC 33.7 % (32.0-36.0); MCV 85 fL (80-95); MPV 9.9 fL (8.0-11.0); Platelet Count 294 10^3/uL (130-400); RBC 4.28 10^6/uL (3.93-5.22); RDW 14.1 % (11.7-14.6); RDW-SD 43.8 fL; WBC 7.63 10^3/uL (4.4-10.8)
[2023-10-08 16:43] LABS: TSH (W/Ref FT4) 2.42 uIU/mL (0.36-3.74)
[2023-10-11 10:20] LABS: FSH 65.1 mIU/mL (See Note)
[2023-10-11 10:22] LABS: LH 26.6 mIU/mL (See Note)
== END 2023-10-08 16:27 | disposition home or self-care (01) ==
LOC: LBO 16:27
PROVIDERS: PCP Nurse Practitioner Family; Visit Provider Nurse Practitioner Family
DX: R55 Syncope and collapse (principal); E34.9 Endocrine disorder, unspecified; Z13.29 Encounter for screening for other suspected endocrine disorder
CPT/HCPCS: 36415; 85027; 83001; 83002; 84443

== ENCOUNTER 2023-12-28 16:00 | Outpatient (REF) | payer MEDICARE, MEDICAID, SELFPAY ==
[2023-12-28 22:09] LABS: ALT 28 U/L (14-59); AST 13 U/L (15-37); Albumin 3.8 g/dL (3.4-5.0); Alkaline Phosphatase 100 U/L (46-116); Anion Gap 9.8 mmol/L (3-11); BUN 16 mg/dL (7-18); Bilirubin, Total 0.31 mg/dL (0.2-1.0); CO2 25.2 mmol/L (21.0-32.0); Calcium 9.4 mg/dL (8.5-10.1); Chloride 111 mmol/L (98-107); Glucose 107 mg/dL (74-106); Potassium 4.1 mmol/L (3.5-5.1); Sodium 146 mmol/L (136-145); Total Protein 7.1 g/dL (6.4-8.2)
[2023-12-29 18:34] LABS: HBs Antibody, Quant <3.1 mIU/mL (See Note); Hepatitis B Surface Ab Negative (See Note)
[2023-12-29 18:43] LABS: Hepatitis B Surface Ag Negative (Negative)
[2023-12-29 19:11] LABS: HIV-1/2 Ag & Ab Screen Negative (Negative)
[2023-12-29 19:29] LABS: Hepatitis C Ab w Rflx HCV PCR Negative (Negative)
== END 2023-12-28 16:01 | disposition home or self-care (01) ==
LOC: LBN 16:00
PROVIDERS: PCP Nurse Practitioner Family; Visit Provider Nurse Practitioner Family
DX: Z77.21 Contact with and (suspected) exposure to potentially hazardous body fluids (principal); Z23 Encounter for immunization; S69.91XA Unspecified injury of right wrist, hand and finger(s), initial encounter
CPT/HCPCS: 80053; 86706; 86803; 87340; 87389

== ENCOUNTER 2024-02-20 12:40 | Emergency (ER) | payer MEDICARE, MEDICAID, SELFPAY ==
--- NOTE | 2024-02-20 12:45 | DI.RAD_ITS ---
Exam(s) XR KNEE LT 3V AP,LAT,GALINDO EXAM: XR KNEE LT 3V AP,LAT,GALINDO CLINICAL HISTORY: LEFT KNEE INJURY. TECHNIQUE: 2D digital imaging was performed. Three views. COMPARISON: MR MR LOWER JOINT RT WO from 06/30/2022 FINDINGS: BONES: No acute fracture is present. No bony destructive lesion is seen. JOINTS: The knee is normally aligned. No joint effusion is seen. Mild periarticular spurring. The cortez int spaces are maintained. SOFT TISSUE: Normal. IMPRESSION: No acute abnormality. DATA REPOSITORY: RADIATION DOSE DELIVERED:
[2024-02-20 12:46] VITALS: BP 130/90; PULSE 80; RESP 16; TEMP 36.6; O2SAT 100
[2024-02-20] MEDS: Acetaminophen 500 MG TAB 1000 MG PO (14:10)
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
== END 2024-02-20 14:21 | disposition home or self-care (01) ==
PROVIDERS: Emergency Provider Emergency Medicine; PCP Nurse Practitioner Family
DX: S83.92XA Sprain of unspecified site of left knee, initial encounter (principal); W01.0XXA Fall on same level from slipping, tripping and stumbling without subsequent striking against object, initial encounter; M25.562 Pain in left knee
CPT/HCPCS: 73562; 99283

== ENCOUNTER → 2024-03-17 08:33 | Outpatient (BNVA) | payer MEDICARE, MEDICAID, SELFPAY | PROVIDERS: PCP Nurse Practitioner Family; Referring Provider Nurse Practitioner Family | DX: M23.91 Unspecified internal derangement of right knee (principal) | CPT/HCPCS: 20610; J7318 ==

== ENCOUNTER 2024-05-15 15:24 | Outpatient (CLI) | payer MEDICARE, MEDICAID, SELFPAY ==
--- NOTE | 2024-05-15 10:34 | DI.RAD_ITS ---
Exam(s) XR KNEE RT 4V AP,LAT,GALINDO,PAT EXAM: XR KNEE RT 4V AP,LAT,GALINDO,PAT CLINICAL HISTORY: RIGHT KNEE PAIN. TECHNIQUE: 2D digital imaging was performed. Three views. COMPARISON: CR XR KNEE LT 3V AP,LAT,GALINDO from 02/20/2024 FINDINGS: BONES: No acute fracture is present. No bony destructive lesion is seen. Small enthesophyte at quad riceps insertion on patella. JOINTS: The joint spaces are maintained. There is mild periarticular spurring throughout. The knee is normally aligned. No joint effusion is seen. SOFT TISSUE: Normal. IMPRESSION: Mild degenerative changes. DATA REPOSITORY: RADIATION DOSE DELIVERED:
--- NOTE | 2024-05-15 10:34 | DI.RAD_ITS ---
Exam(s) XR HIP RT COMPLETE AP PELVIS EXAM: XR HIP RT COMPLETE AP PELVIS CLINICAL HISTORY: RIGHT KNEE PAIN. TECHNIQUE: 2D digital imaging was performed. Two views COMPARISON: CR XR HIP RT COMPLETE AP PELVIS from 05/18/2023 FINDINGS: BONES: No acute fracture is present. No bony destructive lesion is seen. There is hardware at the t horacolumbar junction. JOINTS: No dislocation present. The hip joint spaces are maintained. There is mild bilateral acetabu lar spurring. SOFT TISSUE: Multiple phleboliths are noted in the pelvis. There is a surgical clip in the left side of the lower pelvis. IMPRESSION: No acute abnormality. Mild degenerative changes. DATA REPOSITORY: RADIATION DOSE DELIVERED:
== END 2024-05-15 15:25 | disposition home or self-care (01) ==
LOC: DIORS 15:24
PROVIDERS: PCP Nurse Practitioner Family; Referring Provider Nurse Practitioner Family; Visit Provider Student in an Organized Health Care Education/Training Program
DX: M23.91 Unspecified internal derangement of right knee (principal); M17.11 Unilateral primary osteoarthritis, right knee
CPT/HCPCS: 20610; J1010; 73502; 73564

== ENCOUNTER 2024-05-17 01:05 | Outpatient (CLI) | payer MEDICARE, MEDICAID, SELFPAY ==
--- NOTE | 2024-05-17 07:15 | DI.MRI_ITS ---
Exam(s) MR LOWER JOINT RT WO EXAM: MR LOWER JOINT RT WO CLINICAL HISTORY: PAIN,INTERNAL DERANGEMENT RT KNEE,M23.91. TECHNIQUE: Multiplanar multisequence MRI was performed. COMPARISON: MR MR LOWER JOINT RT WO from 06/30/2022 CR XR KNEE RT 4V AP,LAT,GALINDO,PAT from 05/15/2024 FINDINGS: BONES: There is no fracture or contusion pattern. Of small cyst posterior aspect of lateral tibial p lateau. JOINTS: A small to moderate joint effusion is present. Articular cartilage: Patellofemoral joint: Irregular cartilage thinning greater at the medial facet. Medial femoral tibial joint: Irregular cartilage thinning greater posteriorly. Adjacent mild marrow edema. Small endplate small marginal osteophytes. Lateral femoral tibial joint: Mild cartilage thinning. LIGAMENTS/TENDONS: Anterior Cruciate: Unremarkable. Posterior Cruciate: Unremarkable. Medial Collateral:Unremarkable. Lateral Collateral ligament complex: Unremarkable. Extensor mechanism: Unremarkable. Medial retinaculum: Unremarkable. Lateral retinaculum: Unremarkable. Popliteus: Unremarkable. MENISCI: The medial meniscus is unremarkable. The lateral meniscus is unremarkable. MUSCLES: Unremarkable. SOFT TISSUES: Small Arana's cyst. small cystic lesions noted posterior to the femoral condyle and adj acent to the posteromedial aspect of the medial meniscus. IMPRESSION: No evidence of meniscal tear or ligament tear. Degenerative changes with cartilage thinning greatest at the medial patellar facet and posterior aspect of medial femoral condyle. Small joint effusion and Arana's cyst. DATA REPOSITORY:
== END 2024-05-17 01:25 ==
LOC: DI 01:05
PROVIDERS: PCP Nurse Practitioner Family; Visit Provider Student in an Organized Health Care Education/Training Program
DX: M23.91 Unspecified internal derangement of right knee (principal)
CPT/HCPCS: 73721

== ENCOUNTER → 2024-05-22 14:23 | Outpatient (BNVA) | payer MEDICARE, MEDICAID, SELFPAY | PROVIDERS: PCP Nurse Practitioner Family; Referring Provider Nurse Practitioner Family; Visit Provider Student in an Organized Health Care Education/Training Program | DX: M23.91 Unspecified internal derangement of right knee (principal); M17.11 Unilateral primary osteoarthritis, right knee | CPT/HCPCS: 99213 ==

== ENCOUNTER 2024-06-27 05:32 | Emergency (ER) | payer MEDICARE, MEDICAID, SELFPAY ==
[2024-06-27 05:35] VITALS: BP 147/88; PULSE 72; RESP 16; TEMP 35.8; O2SAT 98
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
[2024-06-27] MEDS: Lidocaine 1% Multi-Dose W/EPI 1/100,000 50 ML VIAL (05:51)
== END 2024-06-27 05:56 | disposition home or self-care (01) ==
PROVIDERS: Emergency Provider Student in an Organized Health Care Education/Training Program; PCP Nurse Practitioner Family
DX: N90.89 Other specified noninflammatory disorders of vulva and perineum (principal); I10 Essential (primary) hypertension; E78.5 Hyperlipidemia, unspecified; E11.9 Type 2 diabetes mellitus without complications; Z79.82 Long term (current) use of aspirin; Z87.891 Personal history of nicotine dependence
CPT/HCPCS: 99283; J2004

== ENCOUNTER 2024-07-03 15:57 | Outpatient (REF) | payer MEDICARE, MEDICAID, SELFPAY ==
[2024-07-03 21:19] LABS: Abs Immature Grans 0.04 10^3/uL (0.0-0.06); Absolute Basophil Count 0.08 10^3/uL (0.0-0.2); Absolute Monocyte Count 0.98 10^3/uL (0.1-0.8); Basophils % 0.6 %; Eosinophils % 1.2 %; HCT 39.2 % (36.0-46.0); HGB 12.5 g/dL (11.2-15.7); Immature Grans % 0.3 %; MCH 27.1 pg (27.0-33.0); MCHC 31.9 % (32.0-36.0); MCV 85 fL (80-95); MPV 10.3 fL (8.0-11.0); Monocytes % 7.6 %; Neutrophils % 69.3 %; Platelet Count 271 10^3/uL (130-400); RBC 4.62 10^6/uL (3.93-5.22); RDW 14.6 % (11.7-14.6); RDW-SD 44.7 fL; WBC 12.88 10^3/uL (4.4-10.8)
[2024-07-03 21:20] LABS: Absolute Eosinophil Count 0.15 10^3/uL (0.0-0.7); Absolute Neutrophil Count 8.93 10^3/uL (1.2-6.7)
[2024-07-03 21:21] LABS: Bilirubin Negative (Negative); Blood Negative (Negative); Clarity Clear (Clear); Glucose Negative (Negative); Ketones Negative (Negative); Leukocyte Esterase Negative (Negative); Nitrite Negative (Negative); Urobilinogen 0.2 mg/dL (Up to 0.2); pH 6.5 (5-8)
[2024-07-03 21:33] LABS: ALT 27 U/L (14-59); AST 13 U/L (15-37); Albumin 4.1 g/dL (3.4-5.0); Alkaline Phosphatase 108 U/L (46-116); Anion Gap 8.3 mmol/L (3-11); BUN 18 mg/dL (7-18); Bilirubin, Total 0.3 mg/dL (0.2-1.0); CO2 25.7 mmol/L (21.0-32.0); CREATININE 0.9 mg/dL (0.55-1.02); Calcium 9.6 mg/dL (8.5-10.1); Chloride 108 mmol/L (98-107); Estimated GFR 71.39 (mL/min/1.73m2); Glucose 90 mg/dL (74-106); Potassium 4.1 mmol/L (3.5-5.1); Sodium 142 mmol/L (136-145); Total Protein 7.2 g/dL (6.4-8.2)
== END 2024-07-03 15:58 | disposition home or self-care (01) ==
LOC: LBN 15:57
PROVIDERS: PCP Nurse Practitioner Family; Visit Provider Nurse Practitioner Family
DX: R39.9 Unspecified symptoms and signs involving the genitourinary system (principal); R10.9 Unspecified abdominal pain
CPT/HCPCS: 80053; 81003; 85025

== ENCOUNTER 2024-07-05 08:44 | Outpatient (CLI) | payer MEDICARE, MEDICAID, SELFPAY ==
--- NOTE | 2024-07-05 08:45 | DI.CT_ITS ---
Exam(s) CT ABDOMEN PELVIS W EXAM: CT ABDOMEN PELVIS W CLINICAL HISTORY: LLQ abd pain, r/o diverticulitis or complication TECHNIQUE: Imaging Protocol: Axial computed tomography images with coronal and sagittal reformatted images were created and reviewed. CONTRAST MATERIAL: Intravenous: Omnipaque 350 Contrast volume:75 mL Oral: Yes COMPARISON: CT CT ABDOMEN PELVIS W from 04/26/[address] RENAL COLIC WO from 04/01/[address] CHEST PE CTA from 08/22/2023 FINDINGS: ABDOMEN: Lung Bases: Stable interstitial disease in the lung bases. Liver: Normal density. No measurable mass. Portal, Superior Mesenteric, and Splenic Veins: Unremarkable. Gallbladder and Biliary Tract: No radiodense calculus or dilation. Pancreas: Normal density, no abnormal calcifications or inflammatory process. Spleen: Normal. Adrenals: No masses seen. Kidneys: Normal size, contour and axis. No radiodense stones or obstructive uropathy. No masses seen. Abdominal Aorta: Abdominal portion non-dilated. Atherosclerotic calcification is present. Bowel: There is a diverticulum seen in the proximal sigmoid colon (series 10, image 158. There is mi ld infiltration of the surrounding soft tissues and early mild diverticulitis cannot be excluded. No abscess or free air is seen. There is no evidence of bowel obstruction. There is a normal retrocec al appendix. Peritoneal Cavity: No ascites, collection or mesenteric inflammatory response. No free air. Lymph Nodes: Within normal limits. Bones: Within normal limits for the patient's age. Posterior spinal surgery from L3 through S1 is no ty. Soft Tissues: There is a small fat containing umbilical hernia. PELVIS: Bladder: Symmetric distention, no gross wall thickening. Reproductive Organs: Status post hysterectomy. Lymph Nodes: Within normal limits. Bones: Within normal limits for the patient's age. IMPRESSION: There is mild inflammation is seen around a diverticulum in the proximal sigmoid colon which may repr esent early acute diverticulitis. No abscess or free air is present. RADIATION DOSE DELIVERED: 466.65mGy.cm Total DLP DATA REPOSITORY: All CT scans at this facility are submitted to the National Radiology Data Registry (NRDR) Dose Index Registry (DIR) with the [employer] (ACR). RADIATION OPTIMIZATION: All CT scans at this facility use at least one of these dose optimization te chniques: automated exposure control; mA and/or kV adjustment per patient size (includes targeted exa ms where dose is matched to clinical indication); or iterative reconstruction.
[2024-07-05] MEDS: Barium Sulfate 2% W/V-Creamy Vanilla Smoothie 450 ML BTL PO ×2 (11:52→11:53)
[2024-07-05] MEDS: Omnipaque 350 MG/ML 100 ML BTL 75 ML IJ (13:56)
[2024-07-05] MEDS: Normal Saline - Diluent 50 ML VIAL IJ (13:57)
== END 2024-07-05 09:04 ==
LOC: DI 08:45
PROVIDERS: PCP Nurse Practitioner Family; Visit Provider Physician Assistant
DX: R10.32 Left lower quadrant pain (principal)
CPT/HCPCS: 74177; J3490

== ENCOUNTER 2024-07-06 10:27 | Emergency (ER) | payer MEDICARE, MEDICAID, SELFPAY ==
[2024-07-06 10:37] VITALS: BP 129/79; PULSE 71; RESP 16; TEMP 36.6
--- NOTE | 2024-07-06 11:00 | DI.RAD_ITS ---
Exam(s) XR LUMBAR SPINE COMPLETE EXAM: XR LUMBAR SPINE COMPLETE CLINICAL HISTORY: lumbar back pain. TECHNIQUE: 2D digital imaging was performed of the lumbar spine. Five images were obtained. AP, la teral, right oblique, left oblique and L5-S1 spot views were obtained. COMPARISON: CR XR HIP RT COMPLETE AP PELVIS from 05/15/2024 FINDINGS: BONES: No fracture or destructive lesion. Small endplate osteophytes are seen at multiple levels of t he lumbar spine. No facet hypertrophy identified. There are posterior spinal fusion at L3-4 and L5-S 1. Discectomies at L4-5 and L5-S1 are also noted. The orthopedic hardware appears intact. No lucen cies are seen about the hardware to suggest loosening. DISKS: There is disc space narrowing at L3-L4. ALIGNMENT: Lumbar spinal alignment is within normal limits. No spondylolysis or spondylolisthesis. SOFT TISSUE: There is oral contrast from the patient's recent CT scan of the abdomen and pelvis. Ath erosclerotic calcification is present. IMPRESSION: 1. No acute abnormality. 2. Postsurgical changes from L3 through S1. DATA REPOSITORY: RADIATION DOSE DELIVERED:
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
[2024-07-06 11:24] LABS: Lactate 0.8 mmol/L (<or=2.0)
[2024-07-06 11:26] LABS: Abs Immature Grans 0.01 10^3/uL (0.0-0.06); Absolute Basophil Count 0.07 10^3/uL (0.0-0.2); Absolute Eosinophil Count 0.14 10^3/uL (0.0-0.7); Absolute Lymphocyte Count 2.28 10^3/uL (1.2-3.4); Absolute Monocyte Count 0.39 10^3/uL (0.1-0.8); Absolute Neutrophil Count 3.39 10^3/uL (1.2-6.7); Basophils % 1.1 %; Eosinophils % 2.2 %; HGB 11.7 g/dL (11.2-15.7); Immature Grans % 0.2 %; Lymphocytes % 36.3 %; MCH 27.5 pg (27.0-33.0); MCHC 32.5 % (32.0-36.0); MCV 85 fL (80-95); MPV 10.3 fL (8.0-11.0); Monocytes % 6.2 %; Platelet Count 259 10^3/uL (130-400); RBC 4.26 10^6/uL (3.93-5.22); RDW 14.6 % (11.7-14.6); WBC 6.28 10^3/uL (4.4-10.8)
[2024-07-06 11:27] LABS: ESR 12 mm/hr (0-30)
[2024-07-06 11:44] LABS: ALT 20 U/L (14-59); AST 16 U/L (15-37); Albumin 3.9 g/dL (3.4-5.0); Alkaline Phosphatase 94 U/L (46-116); Anion Gap 8.3 mmol/L (3-11); BUN 17 mg/dL (7-18); Bilirubin, Total 0.4 mg/dL (0.2-1.0); C-Reactive Protein < 0.50 mg/dL (<or=0.5); CO2 24.7 mmol/L (21.0-32.0); CREATININE 0.9 mg/dL (0.55-1.02); Calcium 9.4 mg/dL (8.5-10.1); Chloride 109 mmol/L (98-107); Estimated GFR 71.39 (mL/min/1.73m2); Glucose 129 mg/dL (74-106); Sodium 142 mmol/L (136-145); Total Protein 7.3 g/dL (6.4-8.2)
[2024-07-06 11:56] LABS: Procalcitonin < 0.10 ng/mL
[2024-07-06] MEDS: Methocarbamol 750 MG TAB 1500 MG PO (12:17)
[2024-07-06] MEDS: Lidocaine 5% Patch 1 PATCH TP (12:17)
[2024-07-06] MEDS: Acetaminophen 500 MG TAB 1000 MG PO (12:17)
[2024-07-06] MEDS: Ketorolac 30 MG/ML VIAL IM (12:18)
[2024-07-06 12:22] VITALS: BP 160/73; PULSE 68; RESP 16; O2SAT 98
== END 2024-07-06 14:09 | disposition home or self-care (01) ==
PROVIDERS: Emergency Provider Physician Assistant; PCP Nurse Practitioner Family
DX: M54.16 Radiculopathy, lumbar region (principal); Z79.82 Long term (current) use of aspirin; Z98.1 Arthrodesis status
CPT/HCPCS: 80053; 84145; 85652; 96372; 99284; 72110; 83605; 85025; 86140; J1885

== ENCOUNTER 2024-07-27 16:50 | Emergency (ER) | payer MEDICARE, MEDICAID, SELFPAY ==
[2024-07-27 17:08] VITALS: BP 143/80; PULSE 79; RESP 18; TEMP 36.4; O2SAT 93
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
--- NOTE | 2024-07-27 17:15 | DI.RAD_ITS ---
Exam(s) XR SCAPULA RT EXAM: XR SCAPULA RT CLINICAL HISTORY: Right scapular pain. TECHNIQUE: 2D digital imaging was performed. COMPARISON: CR XR SHOULDER RT COMPLETE 2+V from 07/27/2024 FINDINGS: Two dedicated views of the scapula: No evidence of scapular fracture. Osseous glenoid and coracoid process appear intact. No adjacent r ib fractures nor ipsilateral clavicle fracture. There is some degenerative changes in the AC joint. Biceps tenodesis site noted in the proximal diaphysis. There also multiple surgical clips in the me dial right supraclavicular region again noted. IMPRESSION: No acute osseous findings in the right scapula. DATA REPOSITORY: RADIATION DOSE DELIVERED:
--- NOTE | 2024-07-27 17:15 | DI.RAD_ITS ---
Exam(s) XR SHOULDER RT COMPLETE 2+V EXAM: XR SHOULDER RT COMPLETE 2+V CLINICAL HISTORY: Right shoulder pain. TECHNIQUE: 2D digital imaging was performed. COMPARISON: CR,XR XR SHOULDER RT COMPLETE 2+V from 12/27/2022 FINDINGS: Five views No evidence of fracture or dislocation or abnormal soft tissue calcifications in the subacromial spac e. Again noted is a biceps tenodesis site in the proximal diaphysis of the humerus. There are no ob vious degenerative changes in the glenohumeral joint and the acromial space is not diminished. Mild degenerative changes in the AC joint. There are multiple surgical clips again noted in the supraclav icular region. Bone density normal. No significant osseous lesions. IMPRESSION: Biceps tenodesis site in the proximal diaphysis of the humerus appears radiographically stable when c ompared to prior images of December 2022. As above. DATA REPOSITORY: RADIATION DOSE DELIVERED:
[2024-07-27] MEDS: Dexamethasone 4 MG TAB 8 MG PO (18:54)
== END 2024-07-27 18:57 | disposition home or self-care (01) ==
PROVIDERS: Emergency Provider Emergency Medicine; PCP Nurse Practitioner Family
DX: E78.5 Hyperlipidemia, unspecified; J44.9 Chronic obstructive pulmonary disease, unspecified; E11.9 Type 2 diabetes mellitus without complications; Z79.82 Long term (current) use of aspirin; Z87.891 Personal history of nicotine dependence
CPT/HCPCS: 99283; 73010; 73030; J8540

== ENCOUNTER 2024-08-10 12:44 | Outpatient (CLI) | payer MEDICARE, MEDICAID, SELFPAY ==
[2024-08-10 12:59] LABS: HCT 35.3 % (36.0-46.0); HGB 11.3 g/dL (11.2-15.7); MCV 84 fL (80-95); MPV 9.9 fL (8.0-11.0); Platelet Count 262 10^3/uL (130-400); RBC 4.18 10^6/uL (3.93-5.22); RDW 14.6 % (11.7-14.6); RDW-SD 44.8 fL; WBC 8.42 10^3/uL (4.4-10.8)
[2024-08-10 14:57] LABS: Anion Gap 9.5 mmol/L (3-11); BUN 17 mg/dL (7-18); CO2 23.5 mmol/L (21.0-32.0); CREATININE 0.9 mg/dL (0.55-1.02); Calcium 9.4 mg/dL (8.5-10.1); Chloride 110 mmol/L (98-107); Estimated GFR 71.39 (mL/min/1.73m2); Glucose 105 mg/dL (74-106); Potassium 3.9 mmol/L (3.5-5.1); Sodium 143 mmol/L (136-145)
[2024-08-10 19:50] LABS: Calculated LDL 64 mg/dL (<100); Cholesterol 140 mg/dL (<200); HDL Cholesterol 56 mg/dL (>or=50); Triglyceride 102 mg/dL (<150)
[2024-08-11 16:03] LABS: Hemoglobin A1C 6.6 % (<5.7)
== END 2024-08-10 12:45 | disposition home or self-care (01) ==
LOC: LBO 12:44
PROVIDERS: PCP Nurse Practitioner Family; Visit Provider Student in an Organized Health Care Education/Training Program
DX: E78.5 Hyperlipidemia, unspecified (principal); Z13.220 Encounter for screening for lipoid disorders; Z13.1 Encounter for screening for diabetes mellitus; E11.9 Type 2 diabetes mellitus without complications; M17.11 Unilateral primary osteoarthritis, right knee; Z01.818 Encounter for other preprocedural examination
CPT/HCPCS: 36415; 80048; 80061; 85027; 83036

== ENCOUNTER 2024-08-11 10:49 | Outpatient (CLI) | payer MEDICARE, MEDICAID, SELFPAY ==
--- NOTE | 2024-08-11 10:56 | DI.RAD_ITS ---
Exam(s) XR STANDING ALIGNMENT XR KNEE RT 1V EXAM: XR STANDING ALIGNMENT and XR knee RT 1 V CLINICAL HISTORY: PRE OP R TKA. TECHNIQUE: 2D digital imaging was performed. Five images were obtained. COMPARISON: CR XR KNEE LT 3V AP,LAT,GALINDO from 02/20/2024 CR XR KNEE RT 4V AP,LAT,GALINDO,PAT from 05/15/2024 CR XR HIP RT COMPLETE AP PELVIS from 05/15/2024 FINDINGS: BONES: Posterior spinal surgery seen from L3 through S1. The hips are well maintained. The left knee is well maintained apart from mild periarticular spurring. In the right knee, there is mild spurring of the lateral femoral tibial joint in the patellofemoral joint. There is also mild narrowing of the medial femoral tibial joint. The ankles are well maintained.There is no significant leg length discrepancy. SOFT TISSUE: Normal. IMPRESSION: Mild degenerative changes seen in the right knee. DATA REPOSITORY: RADIATION DOSE DELIVERED:
== END 2024-08-11 10:50 | disposition home or self-care (01) ==
LOC: DIORS 10:49
PROVIDERS: PCP Nurse Practitioner Family; Referring Provider Nurse Practitioner Family; Visit Provider Physician Assistant
DX: Z01.818 Encounter for other preprocedural examination (principal); M17.11 Unilateral primary osteoarthritis, right knee
CPT/HCPCS: 99024; 73560; 77073

== ENCOUNTER 2024-08-17 15:02 | Emergency (ER) | payer MEDICARE, MEDICAID, SELFPAY ==
[2024-08-17 15:04] VITALS: BP 168/84; PULSE 69; RESP 16; TEMP 36.3; O2SAT 98
--- NOTE | 2024-08-17 16:45 | RT.EKG_ITS ---
APPROVED REPORT Exam: Resting ECG Reason for Exam: shoulder pain Patient Location: E HR:64 bpm ECG Measurements Heart Rate 64 AXIS [place] 138 P 67 QRSd 92 QRS 87 QT 413 T 48 QTc 428 Conclusion Sinus rhythm 64 NORMAL AXIS NO STEMI
[2024-08-17] MEDS: Methocarbamol 500 MG TAB 1000 MG PO (17:33)
[2024-08-17] MEDS: Acetaminophen 500 MG TAB 1000 MG PO (17:34)
[2024-08-17] MEDS: Lidocaine 5% Patch 1 PATCH TP (17:34)
[2024-08-17 17:40] VITALS: BP 138/84; PULSE 74; RESP 18; O2SAT 98
--- NOTE | 2024-08-17 18:42 | NUR.NOTE ---
Faxed to PCP prior authorization for lidocaine 5% patches. Nursing Note:
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
--- NOTE | 2024-09-06 10:47 | NUR.NOTE ---
Accessed Pt chart to obtain Primary Care Provider for a referral. [facility]
== END 2024-08-17 17:43 | disposition home or self-care (01) ==
PROVIDERS: Emergency Provider Emergency Medicine; PCP Nurse Practitioner Family
DX: M62.838 Other muscle spasm (principal)
CPT/HCPCS: 99283 ×2; 93005; 93010

== ENCOUNTER 2024-08-22 09:48 | Day surgery (SDC) | payer MEDICARE, MEDICAID, SELFPAY ==
[2024-08-22] VITALS (30 sets, daily range): BP systolic 79–155; BP diastolic 48–95; PULSE 62–90; RESP 11–19; TEMP 36–36.8; O2SAT 88–100; BMI 31.5
--- NOTE | 2024-08-22 07:41 | W.PM.DSUDISC ---
Date of service: 08/22/24 Discharge Plan Disposition Patient Disposition: Home Condition: Good Discharge Details Reason For Visit: Right knee DJD Attending Provider: Shalom Renee Primary Care Provider: Maximus Leiva Home Meds and New Rx's Prescriptions: New acetaminophen 500 mg tablet 1,000 mg PO Q8H PRN Qty: 90 0RF Rx Instructions: Take two tablets up to every 8 hours as needed for pain aspirin 81 mg tablet,delayed release (DR/EC) 81 mg PO BID 30 Days Qty: 60 0RF docusate sodium [Colace] 100 mg capsule 100 mg PO BID Qty: 28 0RF hydromorphone 2 mg tablet 2 mg PO Q4H PRNQty: 18 0RF Rx Instructions: Take one tablet up to every 4 hours as needed for severe postoperative pain dexamethasone 4 mg tablet 4 mg PO DAILY Qty: 2 0RF Rx Instructions: Take one tablet once daily for two days gabapentin 300 mg capsule 300 mg PO QHS Qty: 14 0RF Rx Instructions: Take one tablet at bedtime celecoxib [Celebrex] 200 mg capsule 200 mg PO BID PRNQty: 60 0RF Rx Instructions: Take one tablet twice daily for pain and inflammation Continued (DME) Aerochamber MV Spacer See Rx Instructions .Route Qty: 1 0RF Rx Instructions: As directed trazodone 50 mg tablet 50 mg PO QHS Qty: 90 3RF topiramate [Topamax] 25 mg tablet 25 mg PO DAILY Qty: 90 3RF sumatriptan succinate 50 mg tablet See Rx Instructions PO .COMPLEX Qty: 12 3RF Rx Instructions: take 1 tab at onset of headache; if no relief may repeat 1 tab after at least 2 hrs; max = 4 tabs/24 hr PO simvastatin 40 mg tablet 40 mg PO QHS Qty: 90 3RF metformin 500 mg tablet 500 mg PO BID Qty: 180 3RF methocarbamol 750 mg tablet 750 mg PO TID Qty: 20 0RF lidocaine [Lidoderm] 5 % adhesive patch,medicated 1 patch topical DAILY Qty: 15 0RF Rx Instructions: leave on most painful area for up to 12 hrs pantoprazole 40 mg tablet,delayed release (DR/EC) 40 mg PO BID Discontinued meloxicam 15 mg tablet 15 mg PO DAILY Qty: 30 1RF Rx Instructions: Take one tablet daily for inflammation and pain aspirin [Adult Aspirin Regimen] 81 mg tablet,delayed release (DR/EC) 81 mg PO DAILY Qty: 90 3RF Discharge Instructions Additional Instructions: Total Knee Discharge Instructions Activity: The most important activity is to walk and to work on gentle motion (both flexion and extension). You should try to take short walks a few times a day. It is important that when resting you work on keeping the knee straight. Avoid putting a pillow behind the knee as this will encourage flexion. Work on range of motion exercises as provided by Physical Therapy. - Start outpatient physical therapy within 2 weeks. - You should wear the KEYANNA hose on both legs for 2 weeks. You may remove these at night. You may also use any compression sock in place of the KEYANNA hose. - Utilize [employer] to review exercises, see videos on exercises and obtain basic information pertaining to your surgery and your recovery. Dressing: Remove the Deep wrap by 2 days after your surgery and put on the KEYANNA stocking given to you from the hospital. Keep the surgical dressing (underneath the DEEP wrap) in place for at least one week. After the first week it may be removed and replaced with light gauze and tape or nothing. The wound and dressing may get wet after 3 days but avoid soaking the dressing or otherwise it will need to be changed. Many people prefer covering the dressing with cling wrap (saran wrap) to minimize it from getting soaked. If it gets wet, just pat dry. If it starts to peel off then it will need to be changed. Medications: - You should take Tylenol and anti-inflammatory Celebrex as your primary pain control medications. If the Celebrex is too expensive or not covered, please call the office for another alternative (Advil/Ibuprofen or Naproxen/Aleve) - You have been prescribed a stronger pain medication Hydromorphone for breakthrough pain, take as needed as prescribed. - You take a stomach acid reduction agent Pantoprozole at baseline - continue with this medication to help reduce stomach acid and reflux. - You have been prescribed Gabapentin to take at night for restlessness and nerve pain. - You will be taking Aspirin 81mg twice a day for DVT prevention unless instructed otherwise. - You have also been prescribed Decadron to take to control post-operative nausea and pain. You will start this tomorrow. - If you have constipation you should take Colace (which has been prescribed) or Miralax (which is available [id number]). It takes most people 3-4 days to have a bowel movement. Follow-up: 2 weeks If you have any acute concerns or questions, please do not hesitate to contact the office at [phone]. You may contact Dr. Renee with any questions after hours through the hospital at [phone] or on his cell phone at [phone]. Referrals: Shalom Renee MD [ [facility] STAFF PHYSICIAN, Orthopaedic Surgical] Equipment/Supplies: Walker Activity:: Elevate Remove Dressings/Wound Care:: Do Not Remove Shower/Bathe:: Cover Diet:: As Tolerated Discharge Orders Discharge Orders: Discharge Order (Routine); Ordered 08/22/24 Ordered By: Abby Sifuentes
[2024-08-22] MEDS: Celecoxib 200 MG CAP 400 MG PO (10:41)
[2024-08-22] MEDS: Acetaminophen 500 MG TAB 1000 MG PO (10:41)
[2024-08-22] MEDS: Gabapentin 300 MG CAP PO (10:41)
[2024-08-22] MEDS: Lactated Ringers 1,000 ML 80 ML IV ×2 (10:59→15:16)
--- NOTE | 2024-08-22 11:09 | W.ANESPRE ---
General Info Date of Service Date Performed: 08/22/24 Height: 5 ft 4 in Weight: 83.3 kg Body Mass Index (BMI): 31.5 Surgical Procedure: Operation Date: 08/22/24 13:25 Proposed Procedure Side Surgeon p Knee Total Arthroplasty Right Shalom Renee MD Meds Allergies and Home Medications Allergies Allergy/AdvReac Type Severity Reaction Status Date / Time Opioids - Morphine Analogues AdvReac Intermediate nausea Verified 08/22/24 10:06 oxycodone (From [facility]) AdvReac Unknown Nausea, Verified 08/22/24 10:06 headache Home Medication ?Medication ?Instructions ?Recorded sumatriptan succinate 50 mg tablet See Rx Instructions PO .COMPLEX 12 08/28/22 tabs is 30 day supply per insurance #12 tabs inhalational spacing device #1 ea 02/17/23 (Aerochamber MV spacer) simvastatin 40 mg tablet 40 mg PO QHS #90 tabs 05/08/24 topiramate 25 mg tablet (Topamax) 25 mg PO DAILY #90 tabs 06/14/24 trazodone 50 mg tablet 50 mg PO QHS #90 tabs 06/14/24 metformin 500 mg tablet 500 mg PO BID #180 tabs 08/04/24 lidocaine 5 % topical patch 1 patch topical DAILY #15 ea 08/17/24 (Lidoderm) methocarbamol 750 mg tablet 750 mg PO TID #20 tabs 08/17/24 pantoprazole 40 mg tablet,delayed 40 mg PO BID 08/21/24 release acetaminophen 500 mg tablet 1,000 mg (2 x 500 mg) PO Q8H PRN 08/22/24 pain #90 tabs aspirin 81 mg tablet,delayed 81 mg PO BID 30 days #60 tabs 08/22/24 release celecoxib 200 mg capsule (Celebrex) 200 mg PO BID PRN #60 caps 08/22/24 dexamethasone 4 mg tablet 4 mg PO DAILY #2 tabs 08/22/24 docusate sodium 100 mg capsule 100 mg PO BID #28 caps 08/22/24 (Colace) gabapentin 300 mg capsule 300 mg PO QHS #14 caps 08/22/24 hydromorphone 2 mg tablet 2 mg PO Q4H PRN #18 tabs 08/22/24 Current Visit Medications: Current Medications Generic Name Dose Route Start Last Admin Trade Name Freq PRN Reason Stop Dose Admin Acetaminophen 1,000 mg 08/22/24 06:00 08/22/24 10:41 Acetaminophen 500 Mg Tab PO 09/20/24 23:59 1,000 mg PREOP JADE Administration Celecoxib 400 mg 08/22/24 06:00 08/22/24 10:41 Celecoxib 200 Mg Cap PO 09/20/24 23:59 400 mg PREOP JADE Administration Gabapentin 300 mg 08/22/24 06:00 08/22/24 10:41 Gabapentin 300 Mg Cap PO 09/20/24 23:59 300 mg PREOP JADE Administration Hydromorphone HCl 0.5 mg 08/22/24 07:31 Hydromorphone 2 Mg/Ml Syr IVP 09/21/24 07:30 Q2H PRN PRN Hydromorphone HCl 0 mg 08/22/24 07:31 Hydromorphone 2 Mg Tab PO 09/21/24 07:30 Q3H PRN PRN Pain Ringer's Solution 1,000 mls @ 80 mls/hr 08/22/24 06:00 08/22/24 10:59 IV 09/20/24 23:59 80 mls/hr INFUSION JADE Administration Cefazolin Sodium/Dextrose 2 gm in 50 mls @ 100 mls/hr 08/22/24 06:00 Ancef Duplex IVPB 09/20/24 23:59 PREOP JADE Tranexamic Acid/Sodium Chloride 1,000 mg in 100 mls @ 600 mls/hr 08/22/24 06:00 IVPB 09/20/24 23:59 PREOP JADE Cefazolin Sodium/Dextrose 1 gm in 50 mls @ 100 mls/hr 08/22/24 08:00 Ancef Duplex IVPB 08/23/24 00:29 Q8H JADE IV Miscellaneous Supplies 1 each 08/22/24 06:00 Iv Access IV 09/20/24 23:59 DIRECTED JADE Sodium Chloride 0 ml 08/22/24 06:00 Normal Saline Flush 10 Ml Syr IV 09/20/24 23:59 PRN PRN Sodium Chloride 0 ml 08/22/24 06:00 Normal Saline 10 Ml Vial IJ 09/20/24 23:59 DIRECTED PRN Sterile Water 0 ml 08/22/24 06:00 Water,Injection,Sterile 10 Ml Vial IJ 09/20/24 23:59 DIRECTED PRN Tranexamic Acid 1,300 mg 08/22/24 07:31 Tranexamic Acid 650 Mg Tab PO 09/21/24 07:30 ONCE PRN postoperative PFSH Active Problems Active Problems: Problem Status Onset Code Muscle spasm Acute M62.838 Localized pain of right shoulder joint Acute M25.511 Diverticulitis Chronic K57.92 Insomnia Acute G47.00 Nail dystrophy Acute L60.3 Degenerative joint disease of right knee Chronic M17.11 Internal derangement of right knee Acute M23.91 Left knee pain Acute M25.562 Right knee pain Acute M25.561 Exposure to body fluid Acute Z77.21 Pre-syncope Acute R55 Diabetes type 2, controlled Acute E11.9 Right hip pain Acute M25.551 Bursitis of shoulder, right Acute M75.51 Tendinopathy of right biceps tendon Acute M67.921 Rotator cuff tear, right Chronic M75.101 Financial insecurity Chronic Z59.86 Reflex sympathetic dystrophy of the arm Chronic G90.519 Hyperlipidemia Chronic E78.5 Lumbar spinal stenosis Chronic ~05/19 M48.061 Depressive disorder Chronic F32.9 Fibromyalgia Chronic M79.7 GERD (gastroesophageal reflux disease) Chronic K21.9 Migraine Chronic G43.909 Body mass index (BMI) of 30.0 to 30.9 in adult Acute Z68.30 Pulmonary nodules Acute R91.8 Chronic pain Chronic G89.29 History of TIAs Resolved Z86.73 Trochanteric bursitis Acute M70.60 Cannabis dependence Acute F12.20 Hiatal hernia with GERD Acute K21.9, K44.9 COPD (chronic obstructive pulmonary disease) Chronic J44.9 Woodard's esophagus determined by endoscopy Acute K22.70 Arterial atherosclerosis Acute I70.8 Chemical gastritis Acute K29.60 Medical History Medical History TIA (transient ischemic attack) 2 years ago Bilateral carotid artery stenosis Lumbosacral spondylosis without myelopathy Prolapsed cervical intervertebral disc Leg pain Low blood pressure History of nicotine use 30 pack years; quit 2001 Right lower quadrant abdominal pain Knee pain s/p meniscal surgery ([place]) Medical History Comments:: Pt. reports no BP or IV in right arm. PMH of RSD. Daily cannabis use daily. Surgical History Surgical History History of thoracic surgery History of esophagogastroduodenoscopy (EGD) (~03/18/21) H/O laminectomy H/O discectomy (~2006) History of right cataract surgery Hx of right knee surgery meniscal repair Hx of elbow surgery chronic tennis elbow, does not straighten right arm H/O lumbosacral spine surgery x2 History of right-sided carotid endarterectomy (~12/23/16) s/p x2 TIAs F/U with PCP at [facility] S/P carpal tunnel release (~02/22/03) R History of hysterectomy (~02/22/95) for menorrhagia Tobacco Smoking/Tobacco Use Status: Former Tobacco Use Passive smoking exposure: Yes Second hand exposure: Yes Alcohol Alcohol Intake: never Substance Use Substance use: Daily Substance use type: marijuana Details: Pt states she smokes marijuana daily; 3 joints per day. Prental History History 3 Para 3 Hx # Term Pregnancies Multiple births Hx # Pregnancies Ectopic pregnancies AB induced Hx Number of Living Children AB spontaneous Past Pregnancies Del. Date GA/Weeks # Preg Succ Route Wgt Sex Labor Lgth Anesthesia Location [facility] 03/07/77 vaginal 3628.739 g Male [facility] 07/11/81 vaginal 3628.739 g Male [facility] 01/01/92 4853.438 g Male [facility] Delivery Date: 03/07/77 Last Updated by: PRICILLA Myers Delivery Date: 07/11/81 Last Updated by: PRICILLA Myers Delivery Date: 01/01/92 Last Updated by: PRICILLA Myers Vital Signs and Lab Results Vital Signs Most Recent Vital Signs in EMR: Most Recent Vital Signs Temp Pulse Resp BP Pulse Ox 36.8 C 78 18 120/79 96 08/22/24 10:31 08/22/24 10:31 08/22/24 10:31 08/22/24 10:31 08/22/24 10:31 Point of Care Results Point of Care Results: Finger Stick Blood Glucose 128 08/22/24 10:17 Lab Results Complete Blood Count: WBC, (4.4-10.8) 8.42 10^3/uL 08/10/24, 12:51 RBC, (3.93-5.22) 4.18 10^6/uL 08/10/24, 12:51 Hgb, (11.2-15.7) 11.3 g/dL 08/10/24, 12:51 Hct, (36.0-46.0) 35.3 % L 08/10/24, 12:51 Plt Count, (130-400) 262 10^3/uL 08/10/24, 12:51 Complete Metabolic Panel: Sodium, (136-145) 143 mmol/L 08/10/24, 12:51 Potassium, (3.5-5.1) 3.9 mmol/L 08/10/24, 12:51 Chloride, (98-107) 110 mmol/L H 08/10/24, 12:51 Carbon Dioxide, (21.0-32.0) 23.5 mmol/L 08/10/24, 12:51 BUN, (7-18) 17 mg/dL 08/10/24, 12:51 Creatinine, (0.55-1.02) 0.9 mg/dL 08/10/24, 12:51 Est GFR (CKD-EPI 2020), (mL/min/1.73m2) 71.39 08/10/24, 12:51 Calcium, (8.5-10.1) 9.4 mg/dL 08/10/24, 12:51 Glucose, (74-106) 105 mg/dL 08/10/24, 12:51 Hemoglobin A1c, (<5.7) 6.6 % H 08/10/24, 12:51 Imaging and Studies Imaging and Studies Study information below may be from another EMR and interpreted by another provider. Please see original notes in EMR for more complete details. EKG Summary: Conclusion Sinus rhythm...normal P axis, V-rate 60- 99 Multiple ventricular premature complexes...V complexes w/ short R-R intervls Borderline T abnormalities, diffuse leads...T flat/neg 11/07/20 Anesthesia Assessment and Plan Anesthesia History Personal History: No History of Anesthesia Complications Family History: No Family History of Anesthesia Complications Exercise Tolerance Exercise Tolerance: Metabolic Equivalents<4 (Back discomfort) Pertinent Negatives Pertinent Negatives: No Major Cardiovascular Symptoms or Complaints Cardiac & Pulmonary Exam Cardiac Exam: Normal S1/S2 Heart Sounds Pulmonary Exam: Clear Bilateral Breath Sounds Implantable Cardiac Device Does patient have a Pacemaker or an ICD?: No Airway Exam Known Difficult Airway: No Mallampati Class: 3 Mouth Opening: Normal (> 3cm) Thyromental Distance: Greater than 3 cm Neck Range of Motion: Full ROM Neck Circumference: Normal Teeth Condition: Normal Dentition and Removable Dentures/Plates Upper ASA Classification ASA Score: ASA 2 Emergency Case?: No NPO Status NPO Status: NPO Clears >2 hours, Solids >8 hours Anesthesia Plan Resuscitation Status: Full Code Anesthesia Technique: Spinal Anesthesia Airway Planned: Natural Airway Pain Management: Surgeon and patient request nerve block Monitors Used: Standard Monitors
[2024-08-22] MEDS: ceFAZolin 2 GM/50 ML BAG IVPB (12:57)
[2024-08-22] MEDS: TRANEXAMIC ACID/SOD. CHL. 1,000 MG/100 ML BAG 600 MG IVPB (13:08)
--- NOTE | 2024-08-22 13:28 | W.ANESNERVE ---
Nerve Block Single Injection Procedure Date and Time Date Performed: 08/22/24 Procedure Start: 12:03 Location Where Procedure Performed Procedure Location: Day Surgery Unit Reason Performed: Postoperative Analgesia Requesting Provider: Shalom Renee Timeout Performed Timeout Performed: Yes Monitoring Used ECG, Blood Pressure, SpO2 and See EMR for corresponding vital signs Sterility Sterility: Hand Hygiene, Surgical Cap, Surgical Mask, Sterile Gloves and Chlorhexidine Sedation Given During Procedure Sedation Given (Indicate Dose Given): Versed IV Dose:: 2mg Patient Mental Status Patient Mental Status: Sedate with meaningful communication Nerve Block 1st Nerve Block: Laterality: Right Block Type: Adductor Canal Ultrasound Image Saved?: Yes Needle / Catheter Used: 100mm SonoPlex II Local Anesthetic Bolus (Indicate Dose Given): Lidocaine used for local infiltration of skin, Injected in 3-5ml increments after negative blood aspiration, Bupivacaine 0.25% Dose:: 10 mL and Exparel Dose:: 10 mL Additives (Indicate Dose Given): None Ultrasound: Sterile probe cover and gel used Nerve Stimulator: Supplement to Ultrasound use and No twitch or parasthesia noted < 0.5 mA (0.6mA) Paresthesia: None Procedure Tolerated: No Complications Procedure Outcome: Successful Performed By: Mai Darling
--- NOTE | 2024-08-22 14:19 | ROE_ITS ---
Operative Note Operative Note PRE-OP DIAGNOSIS: Right Knee Osteoarthritis POST-OP DIAGNOSIS: same PROCEDURE: Right Total Knee Replacement SURGEON: Shalom Renee SILVER SOLUTION MIXER: Abby Sifuentes ANESTHESIA TYPE: General LMA/ETT Refer to Anesthesia Record ESTIMATED BLOOD LOSS: 150 PATHOLOGY: none sent TOURNIQUET TIME: 0 COMPLICATIONS: None Patient was transported to: PACU Patient's condition: stable Implants: 1. Depuy Attune Cementless Cruciate Retaining Femoral Component, Size 7 2. Depuy Attune Cementless Fixed Bearing Tibial Component, Size 6 3. Depuy Attune 7x6mm CR/FB Poly Indications: I have seen Griselda in clinic for symptoms of knee arthritis, confirmed with radiographic findings. SHe has exhausted nonoperative methods and was having significant limitations in daily function and desired better function and less pain. I discussed the technical details of a knee replacement. I explained the risks of the procedure to include, but not limited to, bleeding, infection, pain, stiffness, fracture, damage to nerves and vessels, damage to muscles and tendons, loosening, need for repeat procedure, blood clot and cardiopulmonary demise. Despite these risks, Griselda elected to proceed. Findings: There was notable loss of cartilage in the trochlea and the medial femur primarily. There is abundant synovial fluid and cystic structure. Procedure Description: Griselda was greeted in the preoperative holding area where the correct side was identified and marked. The consent was reviewed with the patient and signed. The history and physical was updated. All questions were answered. Preoperative medications were administered: Acetaminophen 1000mg, Celebrex 400mg, and Gabapentin 300mg. An adductor canal block was then administered by the anesthesia team in the DSU. She was taken back to the operating room. A general anesthestic was then administered. The patient was placed into the supine position on the operating room table. Posts were placed for positioning during the procedure. All bony prominences were well padded. Prophylactic antibiotics in the form of Cefazolin were administered. 1g of Tranxemic Acid was given intravenously within 30 minutes of incision. The right leg was then prepped with Chloraprep and draped in a standard fashion with impervious stockinette. A second prep with Chloraprep was performed prior to application of Iodine impregnated skin protection. A timeout to confirm correct identity, side and site, procedure, allergies, anesthesia, and medical concerns was performed. With the knee in some flexion, a midline incision was made overlying the knee. Full thickness skin flaps were raised once the extensor mechanism was encountered. These were raised medially and laterally. Any bleeding was controlled with electrocautery. Once the extensor mechanism was fully exposed, a medial parapatellar arthrotomy was performed in a flexed position. All bleeding from the arthrotomy and the geniculate arteries was coagulated. A medial subperiosteal peel was performed with electrocautery to the midcoronal plane. The fat pad was removed while keeping the patellar tendon protected. The anterior distal femur synovium was removed for later visualization. The ACL and PCL were resected and the anterior horn of the lateral meniscus was transected. The knee was then flexed with the patella everted. Using a step drill, and based on preoperative templating, the femoral canal was entered. This was done with a step drill without any difficulty. The intramedullary distal femoral cut guide was inserted, set to a 5 degree valgus cut and 9mm cut thickness. The distal femoral cut guide was then held in position and pinned. With the soft tissues protected, the distal cut was performed. This was passed over a few times to ensure a planar cut. I then turned attention to the tibia. The extramedullary guide was placed onto the leg. The distal aspect was slid medial to adjust for position of center of ankle and stay in line with shaft of the tibia. Approximately 3-5 degrees of posterior slope was kept in the proximal cutting guide. The center of the guide was aligned with the PCL. The stylus was used to assess cut thickness. The medial side, most involved side, was set for a 4mm cut. This was then held in position and pinned into place with 2 additional pins and a cross pin for stability. The medial and lateral collateral ligaments were protected and the cut was performed. With this completed, it was assessed and noted to be of appropriate dimensions. The guide was removed. A spacer block was inserted and the knee was brought into extension. The 6mm spacer block provided full extension, without hyperextension and with stability of both the medial and lateral collateral ligaments was assessed. The pins from the femur and the tibia were then removed. The distal femur was then sized. The anterior stylus was placed onto the lateral ridge of the anterior femur. This indicated a size 7 femur. The external rotation of the guide was adjusted to 5 degrees to match the epicondylar axis, perpendicular to [place]?s line. The 4-in-1 cutting guide was the placed. The posterior medial femur cut was evaluated and appeared of good thickness. The spacer block was inserted underneath the cutting guide and stability was confirmed in 90 degrees of flexion. An carolyn wing was used to confirm appropriate position of the anterior cut to avoid notching. This cutting guide was ensured to be flush on the cut surface and then pinned into place with headed pins. While protecting the soft tissues, quad tendon, and collateral ligaments, the anterior and posterior cuts were performed with a saw. The central two pins were removed and the posterior and anterior chamfers were cut next. The notch-cutting guide was placed. This was pinned to lateralize the femoral component as much as possible while keeping it flush on the cut surface. This was then pinned into position. A reciprocating saw was used to make the notch cut. A rasp smoothed the cut surfaces. The medial and lateral menisci were removed. A trial femoral component was then inserted, impacted down to the cut surfaces, and the lug holes were drilled. A provisional trial tibial component was placed and the knee was brought through range of motion. There was noted to be excellent extension and flexion. There was no significant instability. The patella was tracking without thumbs. A size 6mm polyethylene component provided the best range of motion and stability with less than 2mm gapping with medial and lateral stress and full extension without significant hyperextension. The tibial cut surface was fully exposed. The tibia was then sized as a 6. The tibia had been previously marked during trialing to correspond to the center of the tibial component to help with rotation. The trial was aligned to this martha, approximately rotated to the medial 1/3rd of the tibial tubercle. The trial was pinned into place. The tibia was prepared with a reamer and a keel punch and lug holes. The trial components were removed. The final components were opened on the back table. The periosteal and capsular tissues, especially posteriorly, around the knee were then systematically injected with a periarticular cocktail consisting of 246mg of Ropivacaine, 0.5mg of Epinephrine, 0.08mg of Clonidine, and 30mg of Ketorolac, diluted to 100cc. On the back table, with the implants opened. The cementless knee components were placed. Starting with the tibial component, the tibia was subluxed anteriorly and the lug holes of the component were lined up. The tibia was then impacted with an impactor and mallet until the tibial component was in contact with the tibia. The final polyethylene component was inserted. Then, the femoral component was inserted. The lug holes were aligned and the component was impacted into position. The knee was irrigated with Surgiphor Betadine solution. This was allowed to sit in the knee for 3 minutes and then it was irrigated out with saline. A complete synovectomy is performed around the periphery of the patella along with a lateral facetectomy. The patella was tracking with a no-thumbs technique although there was some slight tilt and tight lateral tissues. Therefore, I performed an interval lateral release of the lateral soft tissues. The capsule was then reapproximated with a No. 1 Vicryl at multiple locations. The capsule was finally closed with a No. 2 Stratafix, barbed suture. Deep tissues were then reapproximated with 0 Vicryl and 2-0 Vicryl. The skin was closed with a running 3-0 Monocryl in a subcuticular fashion. This was reinforced with skin glue. A Mepilex silver dressing was applied along with a [id number] NURIS wrap. A CryoCuff was applied. Griselda was transferred to the hospital bed without difficulty an suffering no apparent complication. SHe has a good prognosis. Physical therapy will start today and without restrictions, weight-bearing as tolerated. Aspirin 81mg BID will be used for DVT prophylaxis. Date of Procedure: 08/22/24
[2024-08-22] MEDS: ePHEDrine 25 MG/5 ML Syringe IVP (14:52)
--- NOTE | 2024-08-22 15:28 | W.ANESPOSTOP ---
Postoperative Evaluation Date, Time and Location Date Performed: 08/22/24 Time Performed: 15:28 Patient Location: PACU Vital Signs Most Recent Imported Vital Signs: Most Recent Vital Signs Temp Pulse Resp BP Pulse Ox 36.1 C L 72 11 L 93/59 L 96 08/22/24 15:02 08/22/24 15:01 08/22/24 15:01 08/22/24 15:01 08/22/24 15:01 Pain Score Most Recent Pain Score: Most Recent Pain Score Pain Level 0 08/22/24 15:02 Assessment Mental Status: Awake (Alert & Oriented to Patient Baseline) Airway and Respiratory Function: Patent airway with normal (patient baseline) respiratory exam Cardiovascular Function: Hemodynamically Stable Hydration Status: Adequately Hydrated Nausea & Vomiting: No Nausea or Vomiting Pain: Pain is tolerable per patient Peripheral Nerve Block: Regional nerve block not resolved at time of post operative discharge
[2024-08-22] MEDS: Tranexamic Acid 650 MG TAB 1300 MG PO (16:36)
--- NOTE | 2024-08-22 17:03 | PT.INIE ---
PT Notes Visit Reasons: Right knee DJD Physical Therapy Day Surgery Initial Evaluation Date: Referring Doctor: Dr. Renee PT Orders: PT CONSULT: s/p right TKA Precautions: fall, standard Patient Profile/Admitting Diagnosis: Griselda is a 64 year old female with right knee OA, presenting s/p TKA post op day 0. Social History/Home Situation: Griselda resides in a single level apartment with no steps to enter. She normally ambulates independently, but has used a walker in the past following back surgeries. States that she struggles with stairs due to back pain ,and avoids whenever possible. She attends outpatient PT at [facility] in [place]. Will be returning home alone, but has upstairs neighbors that will be helping out. Equipment Owned/DME: none Subjective: Griselda states that she is feeling well. She does not have any pain at rest. She's agreeable to PT consult. Objective: General Observation: Resting in bed with cryocuff to right knee. Mental Status: A&Ox3 Pain: well managed ROM: Right Upper Extremity: painful RUE motion due to underlying RSD. Able to battery mechanic walker effectively, but prefers elevated position with elbow flexed to ~40*. Left Upper Extremity: WFL Right Lower Extremity: Right knee allows -5* extension to 80* flexion functionally. Left Lower Extremity: WFL Strength: Right Lower Extremity: Able to perform SLR without extension lag. Able to pump ankle and wiggle toes. Left Lower Extremity: Hip, knee and ankle motion all 3/5 or greater. Sensation: intact distally Bed Mobility/Transfers: Supine to sit : supervision Sit to stand : supervision, with cues for technique and equipment management Stand to sit : supervision, with cues for technique and equipment management Gait: Ambulates 100' with FWW, SBA. Stairs: manages therapeutic stairs 4x3, 6x2 with bilat rails, step to pattern. Balance: Static Sitting: normal Dynamic Sitting: normal Static Standing: fair Dynamic Standing: fair Special Tests: Mobility Limitations Standardized Measure [facility] AM-PAC 6 clicks Basic Mobility Inpatient Short Form: Raw Score: 23 CMS Score: 11% impairment Informed Consent/Education: Patient instructed in purpose of PT consult. Packet containing TKA exercise protocol has been given to patient. Education and training on initial set of exercises that can be done at home have been completed with patient. Treatment: Initial evaluation (31833) Therapeutic activities (88436): Patient was instructed in postop HEP for pre-gait activities as well as receiving Gait and transfer training. She was fitted with FWW and issued walker for home use. Instructed in effective technique for sit to stand transfers, supine?sit transfers, and gait and stair training. Assessment: Ligia is a 64-year-old female with right knee OA presenting status post right TKA, postop day 0. Patient presents with clinical signs and symptoms consistent with postop status that have resulted to mobility limitations, gait instability, generalized weakness, and impairment of motor control as demonstrated by the following impairment level findings: 1. Decreased strength to right knee major muscle groups 2. Impaired standing balance 3. Limitation of joint range of motion in right knee Impairments are contributing to the following functional limitations: 1. Inability to safely ambulate without assistive device 2. Increase completion time for mobility ADL performance 3. Increased fall risk Patient is assessed as a low complexity based on the following: History: As above Examination: Demonstrable impairment in strength, balance, and mobility level with underlying impairments and functional limitations as documented above Presentation: Stable Decision Making: Low complexity Goals: N/A. PT evaluation and 1-2 treatment sessions only for functional mobility training using recommended AD and for HEP instruction. Plan of Care/Treatment Plan: N/A. PT evaluation and 1-2 treatment session only for functional mobility training using recommended AD and for HEP instruction. DISCHARGE RECOMMENDATIONS: Home with resumption of outpatient PT TREATMENT CODE/TIME: [id number] ([id number], [id number]) Thank you for the opportunity to participate in the care of this patient. Please sign an return this page within 30 days if you agree with the above POC. Thank you! Physician Signature Date Brandi Pitt, PT, DPT [facility] All Active Problems Muscle spasm (Acute) Localized pain of right shoulder joint (Acute) Diverticulitis (Chronic) Insomnia (Acute) Nail dystrophy (Acute) Degenerative joint disease of right knee (Chronic) Internal derangement of right knee (Acute) DUROLANE: 03/17/2024; 07/13/22 DEPO MEDROL 05/15/24 Left knee pain (Acute) Right knee pain (Acute) Exposure to body fluid (Acute) Pre-syncope (Acute) Diabetes type 2, controlled (Acute) Right hip pain (Acute) Bursitis of shoulder, right (Acute) Tendinopathy of right biceps tendon (Acute) Rotator cuff tear, right (Chronic) Financial insecurity (Chronic) Reflex sympathetic dystrophy of the arm (Chronic) RSD RUE--on disability Hyperlipidemia (Chronic) PVD s/p endarderectomy; on statin Lumbar spinal stenosis (Chronic ~05/27/18) Depressive disorder (Chronic) Fibromyalgia (Chronic) GERD (gastroesophageal reflux disease) (Chronic) Omeprazole; EGD many years ago; never used H2 krystina Migraine (Chronic) RX Topamax; breakthrough is rest & dark room (couple times per year) Body mass index (BMI) of 30.0 to 30.9 in adult (Acute) Pulmonary nodules (Acute) CT 04/2020: Tiny subpleural nodules in the lungs. For low risk patient, no routine follow-up is recommended. For high risk patients, (history of smoking or other known risk fractures) optional CT scan of the chest at 12 months should be considered. 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 repeat 2024 Arterial atherosclerosis (Acute) Chemical gastritis (Acute) Medical History TIA (transient ischemic attack) 2 years ago Bilateral carotid artery stenosis Lumbosacral spondylosis without myelopathy Prolapsed cervical intervertebral disc Leg pain Low blood pressure History of nicotine use 30 pack years; quit 2001 Right lower quadrant abdominal pain Knee pain s/p meniscal surgery ([place]) Surgical History History of thoracic surgery History of esophagogastroduodenoscopy (EGD) (~03/18/21) H/O laminectomy H/O discectomy (~2006) History of right cataract surgery Hx of right knee surgery meniscal repair Hx of elbow surgery chronic tennis elbow, does not straighten right arm H/O lumbosacral spine surgery x2 History of right-sided carotid endarterectomy (~12/23/16) s/p x2 TIAs F/U with PCP at [facility] S/P carpal tunnel release (~02/22/03) R History of hysterectomy (~02/22/95) for menorrhagia
== END 2024-08-22 17:55 | disposition home or self-care (01) ==
LOC: SUR 09:49
PROVIDERS: PCP Nurse Practitioner Family; Visit Provider Student in an Organized Health Care Education/Training Program
PROC: (CPT 27447; principal; 2024-08-22 13:15)
DX: M17.11 Unilateral primary osteoarthritis, right knee (principal); G89.18 Other acute postprocedural pain
CPT/HCPCS: 27447; 64447; 97161; 97530; C1776; J0665; J0666; J0690; J1100; J1171; J1805; J2003; J2250; J2371; J2401; J2405; J2704; J3010

== ENCOUNTER 2024-09-04 10:56 | Outpatient (CLI) | payer MEDICARE, MEDICAID, SELFPAY ==
--- NOTE | 2024-09-04 10:00 | DI.RAD_ITS ---
Exam(s) XR STANDING ALIGNMENT XR KNEE RT 1V EXAM: XR STANDING ALIGNMENT and XR knee RT 1 V CLINICAL HISTORY: 1ST POST OP S/P R TKA. TECHNIQUE: 2D digital imaging was performed. Five images were obtained. COMPARISON: CR XR STANDING ALIGNMENT from 08/11/2024 CR XR KNEE RT 1V from 08/11/2024 FINDINGS: BONES: Posterior spinal surgery is seen in the lumbosacral spine. The hips are well maintained. Since the prior examination, the patient has undergone a right total knee arthroplasty. The orthopedic hardware is in appropriate position. There is no evidence of loosening. The left knee is unremarkable. The ankles are well maintained.There is no significant leg length discrepancy. SOFT TISSUE: Normal. IMPRESSION: Interval placement of a right total knee arthroplasty. DATA REPOSITORY: RADIATION DOSE DELIVERED:
== END 2024-09-04 10:57 | disposition home or self-care (01) ==
LOC: DIORS 10:56
PROVIDERS: PCP Nurse Practitioner Family; Visit Provider Student in an Organized Health Care Education/Training Program
DX: Z47.1 Aftercare following joint replacement surgery (principal); Z96.651 Presence of right artificial knee joint; M25.561 Pain in right knee
CPT/HCPCS: 99024; 73560; 77073